=== PATIENT | male | born 1980 | race Caucasian/White ===

== ENCOUNTER 2022-04-15 08:27 | Inpatient (IN) | payer BC, SELFPAY ==
[2022-04-15] VITALS (24 sets, daily range): BP systolic 76–138; BP diastolic 52–81; PULSE 76–89; RESP 18–22; TEMP 36.7–37.3; O2SAT 89–98; BMI 35.4; BMI 36.0
--- NOTE | 2022-04-15 09:16 | CRLHL7_ITS ---
For Patients: As a result of the Cures Act, medical imaging exams and procedure reports are released immediately into your electronic medical record. You may view this report before your referring provider. If you have questions, please contact your health care provider. INDICATION: Hypoxia. COMPARISON: 11/03/2021. FINDINGS: A portable AP view of the chest was obtained. The cardiac silhouette and pulmonary vasculature are within limits. The lungs are clear bilaterally. IMPRESSION: No evidence of acute pulmonary disease. Dictated by Gregorio Dash MD @ 04/15/2022 10:17:34 AM (Electronically Signed)
--- NOTE | 2022-04-15 09:17 | ED_ITS ---
HPI - General Adult General Chief complaint: Cough Stated complaint: Really sick post heart attack last week Time Seen by Provider: 04/15/22 09:10 History of Present Illness HPI narrative: This 41-year-old male was hospitalized about a week ago because of a myocardial infarction. He states that he had a heart attack about a year ago also. He had stents placed and was discharged home and states that he is not felt well since then. He reports cough and nasal congestion and has some chest pain only when coughing. He does not report any nausea, vomiting, lightheadedness, shortness of breath, or diaphoresis. Related Data Home Medications Medication Instructions Recorded Confirmed aspirin 81 mg capsule 81 mg PO DAILY 04/15/22 04/15/22 atorvastatin 80 mg tablet 40 mg PO DAILY 04/15/22 04/15/22 calcium carbonate 500 mg calcium 500 mg PO QID 04/15/22 04/15/22 (1,250 mg) chewable tablet (Calcium 500) carvedilol 25 mg tablet 25 mg PO BID 04/15/22 04/15/22 cyclobenzaprine 10 mg tablet 10 mg PO HS 04/15/22 04/15/22 dapagliflozin 10 mg tablet 10 mg PO DAILY 04/15/22 04/15/22 epinephrine 0.3 mg/0.3 mL 0.3 ml IM Q5-15M PRN 04/15/22 04/15/22 injection, auto-injector eplerenone 25 mg tablet 25 mg PO DAILY 04/15/22 04/15/22 famotidine 20 mg tablet (Acid 20 mg PO DAILY 04/15/22 04/15/22 Controller) furosemide 20 mg tablet 20 mg PO DAILY 04/15/22 04/15/22 insulin glargine 100 unit/mL (3 84 unit subcut BID 04/15/22 04/15/22 mL) subcutaneous pen insulin lispro 100 unit/mL 20 unit subcut TID 04/15/22 04/15/22 subcutaneous solution (Humalog U-100 Insulin) isosorbide mononitrate 30 mg 30 mg PO DAILY 04/15/22 04/15/22 tablet,extended release 24 hr losartan 100 mg tablet (Cozaar) 100 mg PO DAILY 04/15/22 04/15/22 nitroglycerin 0.4 mg sublingual 0.8 mg sublingual Q5M 04/15/22 04/15/22 tablet ondansetron HCl 8 mg tablet 8 mg PO Q8H PRN 04/15/22 04/15/22 prasugrel 10 mg tablet (Effient) 10 mg PO DAILY 04/15/22 04/15/22 sertraline 50 mg tablet 50 mg PO DAILY 04/15/22 04/15/22 Allergies Allergy/AdvReac Type Severity Reaction Status Date / Time cephalexin [From Keflex] Allergy Verified 04/15/22 08:59 Iodinated Contrast Media Allergy Verified 04/15/22 08:59 morphine Allergy Verified 04/15/22 08:59 Penicillins Allergy Verified 04/15/22 08:59 Sulfa (Sulfonamide Allergy Verified 04/15/22 08:59 Antibiotics) Review of Systems Status of ROS: Reports: 10 or more systems reviewed and unremarkable except as noted in History and below Narrative: Constitutional: No fevers, no weight gain or loss. Generalized malaise. Eyes: No discharge. No vision changes. HENT: Nasal congestion, no sore throat, no ear pain. Cardiovascular: No chest pain, no palpitations. Respiratory: No shortness of breath, no wheezes. He reports a cough. Gastrointestinal: No abdominal pain, no vomiting, no diarrhea. Genitourinary: No dysuria, no hematuria. Musculoskeletal: Normal range of motion. Skin: No rashes, no pruritis. Neurological: No dizziness, weakness, sensory change, speech change. Endo/Heme/Allergies: No bruising or bleeding. No polydipsia. Pysch: no suicidality, no anxiety, no insomnia. All other systems reviewed and are negative. [facility] Social History Smoking Status: Smoker, status unknown Exam Narrative: Exam Narrative: Constitutional: Well-developed, well-nourished, no acute distress. HEENT: Normocephalic, atraumatic. Neck: Normal range of motion. Nontender. Supple. Heart: Regular. No murmurs. Normal rate. Intact distal pulses. Lungs: Clear to auscultation. No chest discomfort. No wheezes, rhonchi, or rales. Abdomen: Normal bowel sounds. Nontender. No rebound tenderness. Genitalia: Deferred. Back: No midline tenderness. Normal range of motion. Extremities: Normal range of motion. No injury. Skin: Intact. No rash. Warm. No erythema or pallor. Neurologic: No altered sensation. No weakness. Alert and oriented. Psychiatric: No suicidality. No anxiety or depression. No insomnia. Nursing notes and vitals signs are reviewed. Const: Vital Signs, click to edit/add: Vital Signs - 24 hr 04/15/22 08:54 04/15/22 10:15 04/15/22 10:15 Temperature 99.2 F Pulse Rate Pulse Rate [Right Pulse Oximeter] 89 Respiratory Rate 22 Blood Pressure Blood Pressure [Le ft Upper Arm] 91/61 Pulse Oximetry 95 91 92 Oxygen Delivery Me thod Room Air Nasal Cannula Oxygen Flow Rate 2 04/15/22 09:09 04/15/22 09:10 04/15/22 09:30 Temperature Pulse Rate 83 84 83 Pulse Rate [Right Pulse Oximeter] Respiratory Rate Blood Pressure 100/69 Blood Pressure [Le ft Upper Arm] Pulse Oximetry 90 91 94 Oxygen Delivery Me thod Oxygen Flow Rate 04/15/22 09:32 04/15/22 09:40 04/15/22 09:45 Temperature Pulse Rate 85 80 Pulse Rate [Right Pulse Oximeter] Respiratory Rate Blood Pressure 97/69 76/52 L 91/66 Blood Pressure [Le ft Upper Arm] Pulse Oximetry 92 89 Oxygen Delivery Me thod Oxygen Flow Rate 04/15/22 10:00 04/15/22 10:02 Temperature Pulse Rate 79 76 Pulse Rate [Right Pulse Oximeter] Respiratory Rate Blood Pressure 89/58 L Blood Pressure [Le ft Upper Arm] Pulse Oximetry 90 91 Oxygen Delivery Me thod Oxygen Flow Rate Course Vital Signs Vital signs: Initial Vital Signs Temperature 99.2 F 04/15/22 08:54 Temperature Source Temporal Artery Scan 04/15/22 08:54 Pulse Rate 89 04/15/22 08:54 Respiratory Rate 22 04/15/22 08:54 Blood Pressure 91/61 04/15/22 08:54 Blood Pressure Mean 71 04/15/22 08:54 Blood Pressure Position Sitting 04/15/22 08:54 Pulse Oximetry 95 04/15/22 08:54 Oxygen Delivery Method 04/15/22 08:54 Vital Signs Temperature 99.2 F 04/15/22 08:54 Pulse Rate 89 04/15/22 08:54 Respiratory Rate 22 04/15/22 08:54 Blood Pressure 91/61 04/15/22 08:54 Pulse Oximetry 95 04/15/22 08:54 Oxygen Delivery Method 04/15/22 08:54 Temperature 99.2 F 04/15/22 08:54 Pulse Rate 76 04/15/22 10:02 Respiratory Rate 22 04/15/22 08:54 Blood Pressure 89/58 L 04/15/22 10:02 Pulse Oximetry 92 04/15/22 10:15 Oxygen Delivery Method 04/15/22 10:15 Oxygen Flow Rate 2 04/15/22 10:15 Medical Decision Making MDM Narrative Medical decision making narrative: This patient comes in reporting generalized malaise with a cough that is painful when coughing. He has nasal congestion. He arrives with blood pressure at around 90/60. At 1 point he sat up in the bed in his blood pressure decreased to the mid 70s. He did receive then a L of normal saline and his blood pressures have improved to around 90 over 60 again. He states that he did take his blood pressure medicines this morning. His troponin returns elevated at 0.19 but this is trended down words from his recent hospitalization where was significantly higher. His nasal pharyngeal swab test returns positive for influenza A. I did speak with the hospitalist developmental education instructor who agrees to bring him in here but would like conversation with the electrician yard. I did speak with Dr. Reynoso at [facility] who reviewed his recent studies and states that his coronary arteries are patent. He is okay to be admitted here. Dr. Morejon is the accepting physician. Lab Data Labs: Lab Results 04/15/22 04/15/22 04/15/22 Range/Units 09:00 09:16 09:16 WBC 4.74 (4.50-11.00) K/uL RBC 4.74 (4.30-5.90) m/uL Hgb 13.7 (13.5-17.5) gm/dL Hct 42.7 (37.0-53.0) % MCV 90 (80-100) fL MCH 29 (26-34) pg MCHC 32 (32-36) gm/dL RDW Coeff of Parker 13.3 (11.5-15.5) % Plt Count 185 (140-440) K/uL Neut % (Auto) 66.2 (42.0-72.0) % Lymph % (Auto) 14.1 L (20-44) % Granite % (Auto) 16.2 H (0.0-11.0) % Eos % (Auto) 2.5 (0.0-7.0) % Baso % (Auto) 0.8 (0.0-3.0) % Neut # (Auto) 3.13 (1.7-7.0) K/uL Lymph # (Auto) 0.70 L (0.90-2.90) K/uL Granite # (Auto) 0.80 (0.00-0.90) K/UL Eos # (Auto) 0.12 (0.00-0.50) K/uL Baso # (Auto) 0.04 (0.00-0.30) K/uL Abs Immat Gran (auto) 0.01 (0.00-0.30) K/uL Imm/Tot Granulo (auto) 0.2 % Sodium 139 (135-149) mmol/L Potassium 3.8 (3.6-5.1) mmol/L Chloride 103 (96-114) mmol/L Carbon Dioxide 28 (20-32) mmol/L BUN 24 (5-24) mg/dL Creatinine 1.2 (0.5-1.5) mg/dL Estimated Creat Clear 81.01 Estimated GFR 78 ml/min Glucose 274 H (60-115) mg/dL Calcium 8.4 (8.4-10.6) mg/dL Troponin I 0.19 H* (0.01-0.04) ng/mL SARS-CoV-2 (PCR) Negative SARS-CoV-2 (Negative) Influenza Type A (PCR) POSITIVE PCR FLU A A (Negative) Influenza Type B (PCR) Negative PCR FLU B (Negative) RSV (PCR) Negative PCR RSV (Negative) ECG Data Attestation: I personally reviewed and interpreted this ECG as follows: Interpretation: Normal sinus rhythm. Rate is 83 beats per minute. Inverted T-waves in to lateral leads. No ST changes. Discharge Plan Discharge Clinical Impression: Influenza A Patient Disposition: Home, Self-Care Condition: Unchanged Prescriptions: No Action carvedilol 25 mg tablet 25 mg PO BID Rx Instructions: must administer with a meal/food aspirin 81 mg capsule 81 mg PO DAILY atorvastatin 80 mg tablet 40 mg PO DAILY cyclobenzaprine 10 mg tablet 10 mg PO HS dapagliflozin 10 mg tablet 10 mg PO DAILY epinephrine 0.3 mg/0.3 mL auto-injector 0.3 ml IM Q5-15M PRN Rx Instructions: do not exceed 3 doses per episode eplerenone 25 mg tablet 25 mg PO DAILY famotidine [Acid Controller] 20 mg tablet 20 mg PO DAILY furosemide 20 mg tablet 20 mg PO DAILY insulin glargine 100 unit/mL (3 mL) insulin pen 84 unit subcut BID insulin lispro [Humalog U-100 Insulin] 100 unit/mL solution 20 unit subcut TID Rx Instructions: with meal isosorbide mononitrate 30 mg tablet extended release 24 hr 30 mg PO DAILY losartan [Cozaar] 100 mg tablet 100 mg PO DAILY nitroglycerin 0.4 mg tablet, sublingual 0.8 mg sublingual Q5M Rx Instructions: do not exceed 3 doses per episode prasugrel [Effient] 10 mg tablet 10 mg PO DAILY sertraline 50 mg tablet 50 mg PO DAILY calcium carbonate [Calcium 500] 500 mg calcium (1,250 mg) tablet,chewable 500 mg PO QID ondansetron HCl 8 mg tablet 8 mg PO Q8H PRN Follow Up/Referrals: Provider,Not a Local [Primary Care Provider] - Stand Alone Forms: [facility] Info Instructions
--- NOTE | 2022-04-15 09:40 | ED.NURSE ---
notified of BP 76/52. IVF started, per MD order.
[2022-04-15 09:41] LABS: Basophils Absolute Auto 0.04 K/uL (0.00-0.30); Basophils Percent Auto 0.8 % (0.0-3.0); Eosinophils Absolute Auto 0.12 K/uL (0.00-0.50); Eosinophils Percent Auto 2.5 % (0.0-7.0); Hematocrit 42.7 % (37.0-53.0); Hemoglobin* 13.7 gm/dL (13.5-17.5); Immature Granulocytes Abs Auto 0.01 K/uL (0.00-0.30); Immature Granulocytes Pct Auto 0.2 %; Lymphocytes Percent Auto 14.1 % (20-44); Mean Corpuscular HGB Conc 32 gm/dL (32-36); Mean Corpuscular Hemoglobin 29 pg (26-34); Mean Corpuscular Volume 90 fL (80-100); Monocytes Percent Auto 16.2 % (0.0-11.0); Neutrophils Absolute Auto 3.13 K/uL (1.7-7.0); Neutrophils Percent Auto 66.2 % (42.0-72.0); Platelet Count* 185 K/uL (140-440); RDW Coefficient of Variation % 13.3 % (11.5-15.5); Red Blood Count 4.74 m/uL (4.30-5.90); White Blood Count* 4.74 K/uL (4.50-11.00)
[2022-04-15 09:44] LABS: Slide Review Reflex No
[2022-04-15] MEDS: 0.9 % SODIUM CHLORIDE 1000 ml 1,000 ML IV (09:48)
[2022-04-15 09:52] LABS: Chloride* 103 mmol/L (96-114); Sodium* 139 mmol/L (135-149)
[2022-04-15 09:53] LABS: PCR FLU A POSITIVE PCR FLU A (Negative); PCR FLU B Negative PCR FLU B (Negative); PCR RSV Negative PCR RSV (Negative)
[2022-04-15 09:53] LABS: Potassium* 3.8 mmol/L (3.6-5.1)
[2022-04-15 09:54] LABS: SARS PCR* Negative SARS-CoV-2 (Negative)
[2022-04-15 09:55] LABS: Creatinine* 1.2 mg/dL (0.5-1.5); Est. Creatinine Clearance* 81.01; Estimated Glomerular Filt Rate 78 ml/min
[2022-04-15 09:56] LABS: Blood Urea Nitrogen* 24 mg/dL (5-24); Calcium* 8.4 mg/dL (8.4-10.6); Carbon Dioxide* 28 mmol/L (20-32); Glucose* 274 mg/dL (60-115)
--- NOTE | 2022-04-15 10:12 | ED.NURSE ---
Pt Sats noted to be 87-89% on RA. MD notified. O2 applied at 2-4LPM to maintain Sats >90%.
[2022-04-15 10:19] LABS: Troponin I* 0.19 ng/mL (0.01-0.04)
--- NOTE | 2022-04-15 10:20 | ED.NURSE ---
Critical received from lab: Trop 0.19. informed and to bedside.
--- NOTE | 2022-04-15 11:19 | ED.NURSE ---
Pt to Rm 260 via w/c. IVF complete. IV SL at this time. Pt on O2 2LPM via NC, tolerates well. VSS at time of leaving ED.
--- NOTE | 2022-04-15 12:02 | P.IMHP_ITS ---
Hospitalist- H&P: HPI History of Present Illness Date Seen: 04/15/22 Chief complaint: Really sick post heart attack Narrative: Marquis Rosas is a 41 year old male, has felt poorly since Thanksgiving (2 days ago). Has noted headache, nasal congestion, cough, nausea/vomiting/diarrhea, fatigue. Has used OTC medications with minimal relief. Today, felt much worse (also had lightheadedness), so presented to ED. ER Course and Findings: - elevated troponin of 0.19. Patient was recently hospitalized at [facility] and had elevated troponins (peak at 0.52, 0.48 at discharge on 04/01/2022) - no acute EKG changes - Dr. Dahl in the ED discussed case with Cardiology at [facility] given patient's recent hospitalization and known coronary artery disease. Dr. Reynoso of Cardiology felt that patient was appropriate to be managed at the [facility] given recent hospitalization with reassuring findings CT coronary angiogram - Positive influenza A - blood pressure 90s systolic, given IV fluid bolus and blood pressure improved Recently hospitalized at [facility] (transfer from [address] in [place]) for chest pain. Per DC note: Mr. Marquis Rosas is a 41 y.o. male with a history of coronary artery disease s/p percutaneous coronary intervention, DMII, hypertension/HLPD, obstructive sleep apnea, and depression/anxiety, who presented to [place] emergency department with chest pain. Patient states pain developed around 2:30pm, stating it's similar to pain prior to previous stent. Pain is pressure- like substernal pain with radiation to shoulders and back. He denies associated dyspnea or diaphoresis. ? In the emergency department, patient was afebrile and hemodynamically stable. Physical exam was unremarkable. EKG found non-specific T wave changes in lateral leads. Initial troponin level was mildly elevated at 0.528. He was given an ASA and started on heparin infusion. Ultimately started on nitroglycerin infusion for persistent pain. Transferred to [facility] for management. ? Troponins were somewhat variable but did trend down. Cardiology consult recommended CT coronary angiogram on 04/02 which showed a patent stent in the mid LAD with mild in-stent restenosis and mild non-obstructive atherosclerosis in the proximal and mid RCA but no new obstructive epicardial coronary lesions to account for his symptoms. TTE with LVEF 38%, see report for details. Cardiology feels that his troponin elevation was likely related to demand ischemia related to his hypertension and increased his coreg. He was given new prescriptions for this as well as lasix and losartan. He'd had some nausea but this improved, he felt it may have been due to anxiety and not eating. His lantus was titrated down (including due to being NPO for his CT) but was resumed at usual dose at discharge, he was advised to monitor his oral intake (since his lantus doses were lower) to avoid significant hyperglycemia until he gets back on his usual diabetes regimen. He otherwise felt well and so was discharged to home on 04/02/22 with close outpatient follow up with his primary MD in 3-5 days and I in [place] in 1 month. He was advised to eat a low salt diet and monitor his weight. See below and discharge orders for details. Patient has known history of coronary artery disease, stented LAD 2020. He also has a known history of CATRACHO that is currently untreated (intolerant of CPAP) and IDDM2, with last A1C 6.9 on 04/01/22. Other medical and surgical history updated below. 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 Lives with Lisa (would be medical decision maker if needed) and 6yo daughter. Never smoker. No ETOH use. History of meth use, clean for 6 years. Currently uses [facility]. Requests Full Code status. PCP is Dayday Monroy PA-C at the [facility] in [place]. Review of Systems Status of ROS: Reports: 10 or more systems reviewed and unremarkable except as noted in History and below Narrative: + Rib pain from coughing. No chest pain, had an episode of acute pain in epigastrium that woke him up last night (unsure if cardiac or GERD) - improved with Nitro x2. [facility] Medical History (Updated 04/15/22 @ 14:06 by Ana Morejon MD) Coronary artery disease Depression Essential hypertension IDDM (insulin dependent diabetes mellitus) CATRACHO (obstructive sleep apnea) Surgical History (Updated 04/15/22 @ 12:10 by Ana Morejon MD) History of back surgery History of cholecystectomy S/P surgery on nasal septum Social History Smoking Status: Smoker, status unknown Meds Home Medications and Allergies Home Medications Medication Instructions Recorded Confirmed Type albuterol sulfate 90 mcg/actuation 2 inh inhalation Q4H PRN 04/15/22 04/15/22 History aerosol inhaler aspirin 81 mg chewable tablet 81 mg PO DAILY 04/15/22 04/15/22 History atorvastatin 80 mg tablet 40 mg PO DAILY 04/15/22 04/15/22 History calcium carbonate 500 mg calcium 500 mg PO QID 04/15/22 04/15/22 History (1,250 mg) chewable tablet (Calcium 500) carvedilol 25 mg tablet 25 mg PO BID 04/15/22 04/15/22 History cyclobenzaprine 10 mg tablet 10 mg PO HS PRN 04/15/22 04/15/22 History dapagliflozin 10 mg tablet 10 mg PO DAILY 04/15/22 04/15/22 History epinephrine 0.3 mg/0.3 mL 0.3 ml IM Q5-15M PRN 04/15/22 04/15/22 History injection, auto-injector eplerenone 25 mg tablet 25 mg PO DAILY 04/15/22 04/15/22 History famotidine 20 mg tablet (Acid 20 mg PO BID 04/15/22 04/15/22 History Controller) furosemide 20 mg tablet 20 mg PO DAILY 04/15/22 04/15/22 History insulin glargine 100 unit/mL (3 84 unit subcut BID 04/15/22 04/15/22 History mL) subcutaneous pen insulin lispro 100 unit/mL 20 unit subcut TID 04/15/22 04/15/22 History subcutaneous solution (Humalog U-100 Insulin) isosorbide mononitrate 30 mg 30 mg PO DAILY 04/15/22 04/15/22 History tablet,extended release 24 hr losartan 100 mg tablet (Cozaar) 100 mg PO DAILY 04/15/22 04/15/22 History nitroglycerin 0.4 mg sublingual 0.8 mg sublingual Q5M 04/15/22 04/15/22 History tablet ondansetron HCl 8 mg tablet 8 mg PO Q8H PRN 04/15/22 04/15/22 History prasugrel 10 mg tablet (Effient) 10 mg PO DAILY 04/15/22 04/15/22 History sertraline 50 mg tablet 50 mg PO DAILY 04/15/22 04/15/22 History Allergies Allergy/AdvReac Type Severity Reaction Status Date / Time cephalexin [From Keflex] Allergy Verified 04/15/22 08:59 Iodinated Contrast Media Allergy Verified 04/15/22 08:59 morphine Allergy Verified 04/15/22 08:59 Penicillins Allergy Verified 04/15/22 08:59 Sulfa (Sulfonamide Allergy Verified 04/15/22 08:59 Antibiotics) Exam Narrative: Exam Narrative: GEN: Alert and oriented, sitting comfortably in bed and eating lunch, answering questions appropriately HEENT: Normal external ears, EOMIs bilaterally, no scleral icterus CV: RRR, No concerning murmurs, rubs, or gallops R: LCTA bilaterally without concerning wheezing, rales, or rhonchi Ext: wwp, no concerning edema Skin: No concerning skin lesions or rashes on exposed skin Neuro: No focal deficits Psych: Appropriate Const: Vital Signs, click to edit/add: Vital Signs - 24 hr 04/15/22 08:54 04/15/22 10:15 04/15/22 10:15 Temperature 99.2 F Pulse Rate Pulse Rate [Right Pulse Oximeter] 89 Respiratory Rate 22 Blood Pressure Blood Pressure [Le ft Upper Arm] 91/61 Pulse Oximetry 95 91 92 Oxygen Delivery Me thod Room Air Nasal Cannula Oxygen Flow Rate 2 04/15/22 09:09 04/15/22 09:10 04/15/22 09:30 Temperature Pulse Rate 83 84 83 Pulse Rate [Right Pulse Oximeter] Respiratory Rate Blood Pressure 100/69 Blood Pressure [Le ft Upper Arm] Pulse Oximetry 90 91 94 Oxygen Delivery Me thod Oxygen Flow Rate 04/15/22 09:32 04/15/22 09:40 04/15/22 09:45 Temperature Pulse Rate 85 80 Pulse Rate [Right Pulse Oximeter] Respiratory Rate Blood Pressure 97/69 76/52 L 91/66 Blood Pressure [Le ft Upper Arm] Pulse Oximetry 92 89 Oxygen Delivery Me thod Oxygen Flow Rate 04/15/22 10:00 04/15/22 10:02 04/15/22 10:03 Temperature Pulse Rate 79 76 77 Pulse Rate [Right Pulse Oximeter] Respiratory Rate Blood Pressure 89/58 L Blood Pressure [Le ft Upper Arm] Pulse Oximetry 90 91 91 Oxygen Delivery Me thod Oxygen Flow Rate 04/15/22 10:15 04/15/22 10:30 04/15/22 10:31 Temperature Pulse Rate 79 79 Pulse Rate [Right Pulse Oximeter] Respiratory Rate Blood Pressure 82/61 L 111/69 Blood Pressure [Le ft Upper Arm] Pulse Oximetry 92 96 Oxygen Delivery Me thod Oxygen Flow Rate 04/15/22 11:00 04/15/22 11:02 Temperature Pulse Rate 77 76 Pulse Rate [Right Pulse Oximeter] Respiratory Rate Blood Pressure 111/67 Blood Pressure [Le ft Upper Arm] Pulse Oximetry 95 95 Oxygen Delivery Me thod Oxygen Flow Rate Hospitalist - H&P: Result Labs Labs: Short CBC 04/15/22 Range/Units 09:16 WBC 4.74 (4.50-11.00) K/uL Hgb 13.7 (13.5-17.5) gm/dL Hct 42.7 (37.0-53.0) % Plt Count 185 (140-440) K/uL BMP 04/15/22 09:16 Sodium 139 Potassium 3.8 Chloride 103 Carbon Dioxide 28 BUN 24 Creatinine 1.2 Glucose 274 H Calcium 8.4 Cardiac Enzymes 04/15/22 Range/Units 09:16 Troponin I 0.19 H* (0.01-0.04) ng/mL Assessment and Plan Assessment and plan (1) Influenza A: Problem comment: - with associated weakness, hypotension, acute hypoxic respiratory failure requiring supplemental oxygen - treat with Tamiflu given comorbidities and need for hospitalization Status: Acute (2) Acute respiratory failure with hypoxia: Problem comment: - see #1 Status: Acute (3) Coronary artery disease: Problem comment: - LAD stent 2020 - hospitalized for chest pain at [facility] [place] in early March, reassuring coronary CTA - follow troponins given elevation upon admission - continue home medications Status: Acute (4) IDDM (insulin dependent diabetes mellitus): Problem comment: - most recent outpatient A1c 6.9 - continue home insulin, diabetic diet, Accu-Cheks and sliding scale Status: Acute (5) Essential hypertension: Problem comment: - hypotensive on admission, continue home meds with holding parameters Status: Acute (6) CATRACHO (obstructive sleep apnea): Problem comment: - intolerant of CPAP, request nocturnal oximetry Status: Acute Plan - per above - home aspirin, SCDs, Lovenox for prophylaxis
[2022-04-15 15:08] LABS: Troponin I* 0.18 ng/mL (0.01-0.04)
[2022-04-15] MEDS: ACETAMINOPHEN 650 MG TABLET ER 1300 MG PO (15:34)
--- NOTE | 2022-04-15 15:36 | PC.NURSE ---
Pt admitted from ED for positive influenza A. Admission assessment and evaluation completed by primary RN. Lisa present and supportive at bedside. Pt had a low BP on admission which improved after approximately 10 minutes and position change. Pt is diabetic and has a hx of CAD with a stent placement in October of 2020( low sodium diet at home). Pt opted out of therapeutic dietary recommendations. Pt very congested and gasping for air when he arrived on the floor, he was able to expectorate sputum and blow his nose twice with relief, new face mask provided. Dr. Morejon aware of low BP readings when she arrived to evaluate patient. Pt fell into a deep sleep after lunch. New order for continuous pulse oximetry and SCDS initiated. BG check at 1400 was 210. Pt received 20 units of Novolog insulin SQ. Tele indicates NSR. Pt is no longer struggling for air, calm and cooperative with cares. Continue POC. Pt also is aware he needs to leave the collection hat in the toilet for c-diff sample collection. Report to Tereza Brooks RN for evening shift. Droplet/contact precautions d/to influenza diagnosis and need for c-diff results.
[2022-04-15] MEDS: BENZOCAINE/MENTHOL 1 EACH LOZENGE MUCOUS MEM ×2 (15:53→21:35)
[2022-04-15] MEDS: carvediloL 25 MG TABLET PO (21:20)
[2022-04-15] MEDS: OSELTAMIVIR PHOSPHATE 75 MG CAPSULE PO (21:20)
[2022-04-15] MEDS: ENOXAPARIN 40 MG/0.4 ML INJ SUBCUT (21:20)
[2022-04-15] MEDS: guaiFENesin 100 MG/ML CUP PO (21:35)
--- NOTE | 2022-04-15 22:24 | PC.NURSE ---
Shift [id number]- Patient complains of headache, with some relief from tylenol- see eMAR. Mcnamara he states he believes it is partially from being congested. Occasional cough. He is up ad cristobal. Remains on 2L O2. No BM this shift.
[2022-04-16] VITALS (10 sets, daily range): BP systolic 101–143; BP diastolic 60–94; PULSE 69–80; RESP 16–20; TEMP 36.6–36.9; O2SAT 94–99
[2022-04-16 02:31] LABS: C.Difficile Negative (Negative); CDIFFEPI 027 PRESUMPTIVE NEGATIVE (Negative)
[2022-04-16 06:55] LABS: Eosinophils Percent Auto 6.1 % (0.0-7.0); Hematocrit 43.2 % (37.0-53.0); Hemoglobin* 13.7 gm/dL (13.5-17.5); Lymphocytes Percent Auto 29.4 % (20-44); Mean Corpuscular HGB Conc 32 gm/dL (32-36); Mean Corpuscular Hemoglobin 29 pg (26-34); Mean Corpuscular Volume 91 fL (80-100); Monocytes Percent Auto 20.1 % (0.0-11.0); Neutrophils Percent Auto 43.4 % (42.0-72.0); Platelet Count* 158 K/uL (140-440); RDW Coefficient of Variation % 13.4 % (11.5-15.5); Red Blood Count 4.75 m/uL (4.30-5.90); White Blood Count* 3.94 K/uL (4.50-11.00)
[2022-04-16 06:59] LABS: Slide Review Reflex No
--- NOTE | 2022-04-16 07:09 | PC.NURSE ---
Shift note: frequent cough, afebrile, independent in the room
[2022-04-16 07:20] LABS: Albumin* 3.8 g/dL (3.3-5.0); Chloride* 108 mmol/L (96-114); Potassium* 3.9 mmol/L (3.6-5.1); Sodium* 142 mmol/L (135-149)
[2022-04-16 07:22] LABS: Creatinine* 1.1 mg/dL (0.5-1.5); Est. Creatinine Clearance* 88.38; Estimated Glomerular Filt Rate 86 ml/min
[2022-04-16 07:23] LABS: Alanine Aminotransferase* 90 U/L (4-50); Alkaline Phosphatase* 188 U/L (40-150); Aspartate Amino Transferase* 57 U/L (12-35); Bilirubin Total* 0.4 mg/dL (0.1-1.5); Blood Urea Nitrogen* 23 mg/dL (5-24); Carbon Dioxide* 29 mmol/L (20-32); Glucose* 120 mg/dL (60-115); Total Protein* 7.3 g/dL (6.0-8.3)
[2022-04-16 07:24] LABS: Calcium* 8.6 mg/dL (8.4-10.6)
[2022-04-16 07:34] LABS: Troponin I* 0.19 ng/mL (0.01-0.04)
[2022-04-16] MEDS: ACETAMINOPHEN 650 MG TABLET ER 1300 MG PO ×2 (07:55→15:58)
[2022-04-16] MEDS: guaiFENesin 100 MG/ML CUP PO (07:55)
--- NOTE | 2022-04-16 09:15 | PM.IMPN1 ---
Progress Note: A&P Assessment and plan (1) Influenza A: Problem details: - with associated weakness, hypotension, acute hypoxic respiratory failure requiring supplemental oxygen - treat with Tamiflu given comorbidities and need for hospitalization - symptomatic cares with guaifenesin, Flonase, nebs - appreciate input from respiratory therapy Status: Acute (2) Acute respiratory failure with hypoxia: Problem details: - see #1 Status: Acute (3) Coronary artery disease: Problem details: - LAD stent 2020 - hospitalized for chest pain at [facility] in early March, reassuring coronary CTA, stable TTE - follow troponins given elevation upon admission - continue home medications - 24 hours of telemetry reassuring, will discontinue at this time Status: Acute (4) IDDM (insulin dependent diabetes mellitus): Problem details: - most recent outpatient A1c 6.9 - continue home insulin, diabetic diet, Accu-Cheks and sliding scale Status: Acute (5) Essential hypertension: Problem details: - hypotensive on admission, continue home meds with holding parameters Status: Acute (6) CATRACHO (obstructive sleep apnea): Problem details: - intolerant of CPAP, request nocturnal oximetry Status: Acute Plan - per above - continue to wean supplemental oxygen, possibly home as early as tomorrow Subjective Date Seen: 04/16/22 Interval history: No acute events overnight. Marquis continues to feel poorly, is intermittently requiring supplemental oxygen. Notes head congestion and headache. Troponin stable. No CP. Blood sugars stable, tolerating po intake. Exam Narrative: Exam Narrative: GEN: Alert and oriented, sitting comfortably in bed and eating breakfast HEENT: Normal external ears, EOMIs bilaterally CV: RRR, No concerning murmurs, rubs, or gallops R: LCTA bilaterally without concerning wheezing, rales, or rhonchi Ext: wwp, no concerning edema Skin: No concerning skin lesions or rashes on exposed skin Neuro: Nonfocal Psych: Appropriate Const: Vital Signs, click to edit/add: Vital Signs - 24 hr 04/15/22 10:15 04/15/22 10:15 04/15/22 09:30 Temperature Pulse Rate 83 Pulse Rate [Right Radial] Respiratory Rate Blood Pressure Blood Pressure [Ri ght Arm] Pulse Oximetry 91 92 94 Oxygen Delivery Me thod Nasal Cannula Oxygen Flow Rate 2 04/15/22 09:32 04/15/22 09:40 04/15/22 09:45 Temperature Pulse Rate 85 80 Pulse Rate [Right Radial] Respiratory Rate Blood Pressure 97/69 76/52 L 91/66 Blood Pressure [Ri t Arm] Pulse Oximetry 92 89 Oxygen Delivery Me thod Oxygen Flow Rate 04/15/22 10:00 04/15/22 10:02 04/15/22 10:03 Temperature Pulse Rate 79 76 77 Pulse Rate [Right Radial] Respiratory Rate Blood Pressure 89/58 L Blood Pressure [Ri ght Arm] Pulse Oximetry 90 91 91 Oxygen Delivery Me thod Oxygen Flow Rate 04/15/22 10:15 04/15/22 10:30 04/15/22 10:31 Temperature Pulse Rate 79 79 Pulse Rate [Right Radial] Respiratory Rate Blood Pressure 82/61 L 111/69 Blood Pressure [Ri ght Arm] Pulse Oximetry 92 96 Oxygen Delivery Me thod Oxygen Flow Rate 04/15/22 11:00 04/15/22 11:02 04/15/22 11:54 Temperature Pulse Rate 77 76 86 Pulse Rate [Right Radial] Respiratory Rate Blood Pressure 111/67 Blood Pressure [Ri t Arm] Pulse Oximetry 95 95 Oxygen Delivery Me thod Oxygen Flow Rate 04/15/22 13:18 04/15/22 13:17 04/15/22 11:35 Temperature 98.1 F Pulse Rate Pulse Rate [Right Radial] 84 87 Respiratory Rate 20 22 Blood Pressure Blood Pressure [Ri ght Arm] 94/66 Pulse Oximetry 98 98 98 Oxygen Delivery Me thod Nasal Cannula Nasal Cannula Oxygen Flow Rate 2 2 04/15/22 11:45 04/15/22 15:37 04/15/22 18:31 Temperature 98.4 F Pulse Rate Pulse Rate [Right Radial] 88 Respiratory Rate 22 18 Blood Pressure Blood Pressure [Ri ght Arm] 102/68 Pulse Oximetry 97 97 Oxygen Delivery Me thod Nasal Cannula Nasal Cannula Oxygen Flow Rate 2 2 04/15/22 15:02 04/15/22 23:00 04/15/22 23:00 Temperature 98.4 F Pulse Rate 78 Pulse Rate [Right Radial] 80 Respiratory Rate 18 Blood Pressure Blood Pressure [Ri ght Arm] 138/81 Pulse Oximetry 98 Oxygen Delivery Me thod Room Air Oxygen Flow Rate 04/16/22 03:00 04/16/22 07:00 Temperature 98 F Pulse Rate 73 Pulse Rate [Right Radial] 76 Respiratory Rate 18 Blood Pressure Blood Pressure [Ri t Arm] Pulse Oximetry 96 Oxygen Delivery Me thod Room Air Oxygen Flow Rate 2 Labs Labs: Laboratory Results - last 24 hr 04/15/22 04/15/22 04/15/22 01:41 09:00 09:16 WBC 4.74 RBC 4.74 Hgb 13.7 Hct 42.7 MCV 90 MCH 29 MCHC 32 RDW Coeff of Parker 13.3 Plt Count 185 Neut % (Auto) 66.2 Lymph % (Auto) 14.1 L [place] % (Auto) 16.2 H Eos % (Auto) 2.5 Baso % (Auto) 0.8 Neut # (Auto) 3.13 Lymph # (Auto) 0.70 L [place] # (Auto) 0.80 Eos # (Auto) 0.12 Baso # (Auto) 0.04 Abs Immat Gran (auto) 0.01 Imm/Tot Granulo (auto) 0.2 Sodium Potassium Chloride Carbon Dioxide BUN Creatinine Estimated Creat Clear Estimated GFR Glucose Calcium Total Bilirubin AST ALT Alkaline Phosphatase Troponin I Total Protein Albumin Stl C.difficile Tox PCR Negative St C. diff Tox Epid 027 PRESUMPTIVE NEGATIVE SARS-CoV-2 (PCR) Negative SARS-CoV-2 Influenza Type A (PCR) POSITIVE PCR FLU A A Influenza Type B (PCR) Negative PCR FLU B RSV (PCR) Negative PCR RSV 04/15/22 04/15/22 04/16/22 09:16 14:23 06:36 WBC 3.94 L RBC 4.75 Hgb 13.7 Hct 43.2 MCV 91 MCH 29 MCHC 32 RDW Coeff of Parker 13.4 Plt Count 158 Neut % (Auto) 43.4 Lymph % (Auto) 29.4 [place] % (Auto) 20.1 H Eos % (Auto) 6.1 Baso % (Auto) 1.0 Neut # (Auto) 1.70 Lymph # (Auto) 1.20 [place] # (Auto) 0.80 Eos # (Auto) 0.20 Baso # (Auto) 0.00 Abs Immat Gran (auto) 0.00 Imm/Tot Granulo (auto) 0.0 Sodium 139 Potassium 3.8 Chloride 103 Carbon Dioxide 28 BUN 24 Creatinine 1.2 Estimated Creat Clear 81.01 Estimated GFR 78 Glucose 274 H Calcium 8.4 Total Bilirubin AST ALT Alkaline Phosphatase Troponin I 0.19 H* 0.18 H* Total Protein Albumin Stl C.difficile Tox PCR St C. diff Tox Epid 027 SARS-CoV-2 (PCR) Influenza Type A (PCR) Influenza Type B (PCR) RSV (PCR) 04/16/22 06:36 WBC RBC Hgb Hct MCV MCH MCHC RDW Coeff of Parker Plt Count Neut % (Auto) Lymph % (Auto) [place] % (Auto) Eos % (Auto) Baso % (Auto) Neut # (Auto) Lymph # (Auto) [place] # (Auto) Eos # (Auto) Baso # (Auto) Abs Immat Gran (auto) Imm/Tot Granulo (auto) Sodium 142 Potassium 3.9 Chloride 108 Carbon Dioxide 29 BUN 23 Creatinine 1.1 Estimated Creat Clear 88.38 Estimated GFR 86 Glucose 120 H Calcium 8.6 Total Bilirubin 0.4 AST 57 H ALT 90 H Alkaline Phosphatase 188 H Troponin I 0.19 H* Total Protein 7.3 Albumin 3.8 Stl C.difficile Tox PCR St C. diff Tox Epid 027 SARS-CoV-2 (PCR) Influenza Type A (PCR) Influenza Type B (PCR) RSV (PCR)
[2022-04-16] MEDS: FUROSEMIDE 20 MG TABLET PO (09:50)
[2022-04-16] MEDS: ASPIRIN 81 MG TAB.CHEW PO (09:50)
[2022-04-16] MEDS: ISOSORBIDE MONONITRATE ER 30 MG TAB PO (09:51)
[2022-04-16] MEDS: SERTRALINE 50 MG TABLET PO (09:51)
[2022-04-16] MEDS: ATORVASTATIN CALCIUM 40 MG TABLET PO (09:52)
[2022-04-16] MEDS: FAMOTIDINE 20 MG TABLET PO (09:52)
[2022-04-16] MEDS: carvediloL 25 MG TABLET PO ×2 (09:52→20:37)
[2022-04-16] MEDS: OSELTAMIVIR PHOSPHATE 75 MG CAPSULE PO ×2 (09:53→20:37)
[2022-04-16] MEDS: LOSARTAN POTASSIUM 50 MG TABLET 100 MG PO (09:53)
[2022-04-16] MEDS: ALBUTEROL SULFATE 2.5 MG/3 ML VIAL.NEB NEB (10:47)
--- NOTE | 2022-04-16 10:51 | RESP.RT ---
Patient sitting up in bed, on room air, SaO2 94%, Breathing regular/easy. PEP with Aerobika; information , instruction, demonstration. Patient made good exhalation effort with good chest shake. Patient understands how to and why, and verbally states so. SaO2 increased to 100% after a few exhalations on Aerobika. Bilateral breath sounds clear/diminished, current Chest X-Ray clear. Nebulizer treatment given with On Demand Nebulizer and Albuterol with mouth piece, Medical Air flow meter at 7 Lpm, patient used treatment well, able to take larger breath post treatment. Discussed use of MDI with extension/chamber and wait time between puffs, patient understands and verbalizes so.
[2022-04-16] MEDS: FLUTICASONE PROPIONATE NASAL 1 SPRAY NOSTRIL-B (14:30)
--- NOTE | 2022-04-16 16:24 | PC.NURSE ---
Pt on droplet precautions for influenza A. RT evaluation by Willie who administered Duoneb to pt this morning. Prn tylenol ES given for h/a 8 out of 10. Please see eMar for medications given on day shift. Two home med bottles awaiting verification by Sejal Sam with labels. Caffeine via coca cola also improved pt's c/o headache secondary to coughing. Pt c/o right sided sinus pressure, new order for Flonase initiated. Tele indicates NSR. Verbal order from Dr. Morejon to d/c telemetry during morning rounds. Report to Tereza Brooks RN for evening shift.
--- NOTE | 2022-04-16 16:29 | PC.NURSE ---
Pt's BG level before bkfst 122, before lunch 146 no SS insulin administered. Pt did received his scheduled levemir and novolog doses as ordered.
[2022-04-16] MEDS: ENOXAPARIN 40 MG/0.4 ML INJ SUBCUT (20:36)
--- NOTE | 2022-04-16 22:47 | PC.NURSE ---
Shift [id number]- Patient complains of headache, somewhat relieved by tylenol. He continues on 2L O2, with saturations low-mid 90s%. He is up independently, appetite intact. He states he feels a little better than he did yesterday.
[2022-04-17] MEDS: ACETAMINOPHEN 650 MG TABLET ER 1300 MG PO (02:06)
[2022-04-17 02:43] VITALS: BP 168/105; PULSE 70; RESP 20; TEMP 36.5; O2SAT 92
[2022-04-17 02:44] VITALS: O2SAT 92
[2022-04-17 06:50] LABS: Basophils Percent Auto 0.7 % (0.0-3.0); Eosinophils Percent Auto 11.6 % (0.0-7.0); Hematocrit 41.4 % (37.0-53.0); Hemoglobin* 13.1 gm/dL (13.5-17.5); Immature Granulocytes Pct Auto 0.2 %; Lymphocytes Percent Auto 40.6 % (20-44); Mean Corpuscular HGB Conc 32 gm/dL (32-36); Mean Corpuscular Hemoglobin 29 pg (26-34); Mean Corpuscular Volume 91 fL (80-100); Monocytes Percent Auto 16.3 % (0.0-11.0); Neutrophils Percent Auto 30.6 % (42.0-72.0); Platelet Count* 160 K/uL (140-440); RDW Coefficient of Variation % 13.4 % (11.5-15.5); Red Blood Count 4.55 m/uL (4.30-5.90); White Blood Count* 4.41 K/uL (4.50-11.00)
[2022-04-17 07:00] VITALS: BP 169/117; PULSE 72; RESP 18; TEMP 36.4; O2SAT 93
[2022-04-17 07:10] LABS: Albumin* 3.7 g/dL (3.3-5.0); Chloride* 107 mmol/L (96-114)
[2022-04-17 07:11] LABS: Potassium* 3.6 mmol/L (3.6-5.1); Sodium* 143 mmol/L (135-149)
[2022-04-17 07:13] LABS: Alkaline Phosphatase* 184 U/L (40-150); Aspartate Amino Transferase* 35 U/L (12-35); Bilirubin Total* 0.3 mg/dL (0.1-1.5); Blood Urea Nitrogen* 23 mg/dL (5-24); Carbon Dioxide* 29 mmol/L (20-32); Est. Creatinine Clearance* 97.21; Estimated Glomerular Filt Rate 97 ml/min
[2022-04-17 07:14] LABS: Alanine Aminotransferase* 65 U/L (4-50); Calcium* 8.6 mg/dL (8.4-10.6); Glucose* 145 mg/dL (60-115)
[2022-04-17 07:24] LABS: Slide Review Reflex No
[2022-04-17 07:43] LABS: Troponin I* 0.18 ng/mL (0.01-0.04)
--- NOTE | 2022-04-17 07:51 | PC.NURSE ---
[id number]: Patient cooperative with cares. Independent in room. Intermittent productive cough. Denies pain. PRN Tylenol administered for headache. O2>90% on RA.
[2022-04-17] MEDS: FLUTICASONE PROPIONATE NASAL 1 SPRAY NOSTRIL-B (08:31)
[2022-04-17] MEDS: carvediloL 25 MG TABLET PO (08:32)
[2022-04-17] MEDS: ISOSORBIDE MONONITRATE ER 30 MG TAB PO (08:32)
[2022-04-17] MEDS: SERTRALINE 50 MG TABLET PO (08:32)
[2022-04-17] MEDS: FAMOTIDINE 20 MG TABLET PO (08:32)
[2022-04-17] MEDS: FUROSEMIDE 20 MG TABLET PO (08:32)
[2022-04-17] MEDS: ATORVASTATIN CALCIUM 40 MG TABLET PO (08:32)
[2022-04-17] MEDS: OSELTAMIVIR PHOSPHATE 75 MG CAPSULE PO (08:32)
[2022-04-17] MEDS: ASPIRIN 81 MG TAB.CHEW PO (08:32)
[2022-04-17] MEDS: LOSARTAN POTASSIUM 50 MG TABLET 100 MG PO (08:33)
--- NOTE | 2022-04-17 09:56 | P.DS_ITS ---
DS: Providers Provider Date Seen: 04/17/22 Date of admission: 04/15/22 13:17 Primary care physician: Not a Local Provider Admitting Clinician: Ana Morejon MD Consults: RT Attending Physician on discharge: Ana Morejon MD Date of Discharge: 04/17/22 DS: Diagnosis Discharge Diagnosis (1) Influenza A: Status: Acute Problem details: - with associated weakness, hypotension, acute hypoxic respiratory failure requiring supplemental oxygen - weaned off supplemental oxygen hospital day 1 - treated with Tamiflu given comorbidities and need for hospitalization - symptomatic cares with guaifenesin, Flonase, nebs - appreciate input from respiratory therapy (2) Acute respiratory failure with hypoxia: Status: Acute Problem details: - see #1 (3) CATRACHO (obstructive sleep apnea): Status: Acute Problem details: - intolerant of CPAP, recommend outpatient follow-up with PCP to discuss al ternatives (4) Coronary artery disease: Status: Acute Problem details: - LAD stent 2020 - hospitalized for chest pain at [facility] in early March, reassuring coronary CTA, stable TTE - troponin remained stable throughout stay - continued home medications - telemetry reassuring throughout stay (5) IDDM (insulin dependent diabetes mellitus): Status: Acute Problem details: - most recent outpatient A1c 6.9 - continue home insulin, diabetic diet, Accu-Cheks and sliding scale (6) Essential hypertension: Status: Acute Problem details: - hypotensive on admission, continued home meds with holding parameters and blood pressure at baseline upon discharge DS: Summary Hospital Course Hospital Course: 41-year-old male with history of coronary artery disease, presented to the hospital with acute hypoxic respiratory failure in the setting of influenza a infection. Patient tapered off oxygen therapy on hospital day 1, seen by respiratory therapy and treated with a Aerobika, Tamiflu, and supportive cares. Did well and felt comfortable with discharge home on hospital day 2. Comorbidities remained stable: - Coronary artery disease with Mild troponin elevation. Hospitalized at a 2 weeks ago with elevated troponins and had reassuring coronary CTA at that time. Emergency room physician discussed case with Cardiology, who did not feel the patient warranted urgent cardiology management. Patient remained chest pain free throughout stay. - IDDM2 with recent outpatient A1c of 6.9. Kept on home dose of insulin with sliding scale and sugars remained stable. - CATRACHO with CPAP intolerance: No significant nocturnal hypoxia. Outpatient follow-up Status at Discharge Functional status at discharge: independent ambulation Overall status at discharge: patient is progressing back to baseline Time Spent with Patient Time attestation: Total time spent providing and/or coordinating discharge services: Time spent: Greater than 30 minutes Specific discharge activities: Medication reconciliation, care coordination, new prescriptions Exam Narrative: Exam Narrative: GEN: Alert and oriented, answering questions appropriately HEENT: Normal external ears, EOMIs bilaterally CV: RRR, No concerning murmurs, rubs, or gallops R: LCTA bilaterally without concerning wheezing, rales, or rhonchi, air movement adequate Ext: wwp, no concerning edema Skin: No concerning skin lesions or rashes on exposed skin Neuro: Nonfocal Psych: Appropriate Const: Vital Signs, click to edit/add: Vital Signs - 24 hr 04/16/22 10:46 04/16/22 10:46 04/16/22 11:15 Temperature Pulse Rate [Right Radial] 69 Respiratory Rate 18 18 20 Blood Pressure [Ri t Arm] Pulse Oximetry 99 99 96 Oxygen Delivery Me thod Room Air Room Air Nasal Cannula Oxygen Flow Rate 2 04/16/22 13:18 04/16/22 15:50 04/16/22 15:50 Temperature 98 F Pulse Rate [Right Radial] 76 Respiratory Rate 18 Blood Pressure [Ri ght Arm] 101/60 Pulse Oximetry 96 94 94 Oxygen Delivery Me thod Nasal Cannula Nasal Cannula Oxygen Flow Rate 2 2 04/16/22 18:34 04/16/22 18:40 04/16/22 23:00 Temperature 98.2 F 98.2 F 98.3 F Pulse Rate [Right Radial] 71 71 75 Respiratory Rate 16 16 16 Blood Pressure [Ri ght Arm] 129/77 129/77 143/94 H Pulse Oximetry 97 97 94 Oxygen Delivery Me thod Nasal Cannula Nasal Cannula Room Air Oxygen Flow Rate 2 2 04/16/22 23:00 04/17/22 02:43 04/17/22 02:44 Temperature 97.7 F Pulse Rate [Right Radial] 70 Respiratory Rate 16 20 Blood Pressure [Ri ght Arm] 168/105 H Pulse Oximetry 94 92 92 Oxygen Delivery Me thod Room Air Room Air Oxygen Flow Rate 04/17/22 07:00 Temperature 97.6 F Pulse Rate [Right Radial] 72 Respiratory Rate 18 Blood Pressure [Ri ght Arm] 169/117 H Pulse Oximetry 93 Oxygen Delivery Me thod Room Air Oxygen Flow Rate DS: Data Data Completed and Pending Labs on day of discharge: Labs from last 24 hours 04/17/22 04/17/22 05:55 05:55 WBC 4.41 L RBC 4.55 Hgb 13.1 L Hct 41.4 MCV 91 MCH 29 MCHC 32 RDW Coeff of Parker 13.4 Plt Count 160 Neut % (Auto) 30.6 L Lymph % (Auto) 40.6 [place] % (Auto) 16.3 H Eos % (Auto) 11.6 H Baso % (Auto) 0.7 Neut # (Auto) 1.30 L Lymph # (Auto) 1.80 [place] # (Auto) 0.70 Eos # (Auto) 0.50 Baso # (Auto) 0.00 Abs Immat Gran (auto) 0.00 Imm/Tot Granulo (auto) 0.2 Sodium 143 Potassium 3.6 Chloride 107 Carbon Dioxide 29 BUN 23 Creatinine 1.0 Estimated Creat Clear 97.21 Estimated GFR 97 Glucose 145 H Calcium 8.6 Total Bilirubin 0.3 AST 35 ALT 65 H Alkaline Phosphatase 184 H Troponin I 0.18 H* Total Protein 7.0 Albumin 3.7 Discharge Plan Discharge Disposition: Home, Self-Care Date of Admission: 04/15/22 13:17 Attending Provider on Discharge: Ana Morejon Primary Care Provider: Provider,Not a Local Condition: Improved Anticipated Discharge Date/Time: 04/17/22 09:53 Discharge Medications: New Levemir FlexTouch U-100 Insuln 100 unit/mL (3 mL) Insulin Pen 38 unit subcut BID Qty: 15 0RF oseltamivir 75 mg Capsule 75 mg PO BID 3 Days Qty: 6 0RF Continued carvedilol 25 mg tablet 25 mg PO BID Rx Instructions: must administer with a meal/food atorvastatin 80 mg tablet 40 mg PO DAILY cyclobenzaprine 10 mg tablet 10 mg PO HS PRN dapagliflozin 10 mg tablet 10 mg PO DAILY epinephrine 0.3 mg/0.3 mL auto-injector 0.3 ml IM Q5-15M PRN Rx Instructions: do not exceed 3 doses per episode eplerenone 25 mg tablet 25 mg PO DAILY famotidine [Acid Controller] 20 mg tablet 20 mg PO BID furosemide 20 mg tablet 20 mg PO DAILY insulin lispro [Humalog U-100 Insulin] 100 unit/mL solution 20 unit subcut TID Rx Instructions: with meal isosorbide mononitrate 30 mg tablet extended release 24 hr 30 mg PO DAILY losartan [Cozaar] 100 mg tablet 100 mg PO DAILY nitroglycerin 0.4 mg tablet, sublingual 0.8 mg sublingual Q5M Rx Instructions: do not exceed 3 doses per episode prasugrel [Effient] 10 mg tablet 10 mg PO DAILY sertraline 50 mg tablet 50 mg PO DAILY calcium carbonate [Calcium 500] 500 mg calcium (1,250 mg) tablet,chewable 500 mg PO QID ondansetron HCl 8 mg tablet 8 mg PO Q8H PRN aspirin 81 mg tablet,chewable 81 mg PO DAILY albuterol sulfate 90 mcg/actuation HFA aerosol inhaler 2 inh inhalation Q4H PRN Discontinued insulin glargine 100 unit/mL (3 mL) insulin pen 84 unit subcut BID Discharge Orders: Discharge Order (Routine); Ordered 04/17/22 Ordered By: Ana Morejon Patient Education: Influenza (DC) Additional Instructions: Check out the [employer] website for Food Shelf hours/locations. Nyquil/Dayquil/Flonase for symptoms, stay hydrated and REST. You should return to ED with any chest pain or shortness of breath. Check in with your PCP about possible ENT referral to discuss INSPIRE for your sleep apnea Activity Level: Activity as Tolerated and No strenuous activity Activity Detail: No return to work until Sunday, 04/21 Discharge Diet: Diabetic Follow Up Appointments: Provider,Not a Local [Primary Care Provider] - Forms: [facility] Info Instructions
[2022-04-17 10:47] VITALS: BP 111/67; PULSE 73; RESP 18; TEMP 36.4
--- NOTE | 2022-04-17 10:55 | PC.SOCIAL ---
Addendum entered by AUGUSTINA Estes 04/17/22 11:00: Social work internal revenue agent note reviewed. AUGUSTINA Urbina Original Note: Social work note: Social work was informed that pt. is looking for assistance with insurance. Provided pt. with [employer] application packet and information on the [facility]'s insurance navigation services. Social work to follow up as needed.
--- NOTE | 2022-04-17 12:00 | PC.NURSE ---
Discharge-- Pleasant and cooperative, alert and oriented patient discharged to home ambulatory with at approximately 1130. VSS and pt is afebrile. He denied any pain this morning. SPO2 maintained >90% on RA while awake. Occasionally pt's O2 sats dropped briefly as low as 88% on RA as per pt's baseline CATRACHO.LS clear but diminished. BS 119 and pt was given scheduled insulin only. He denied nausea and ate a regular breakfast without difficulty. Discharge education was provided including diagnosis info, symptoms to report, medications and follow up plan. No further questions asked and SL was removed with tip intact.
== END 2022-04-17 12:03 | disposition home or self-care (01) | DRG 113 ==
LOC: ED 10:50 → MEDSURG 11:09
PROVIDERS: Admitting Provider Family Medicine; Emergency Provider Emergency Medicine Emergency Medical Services; PCP Physician Assistant; Visit Provider Family Medicine
DX: J10.1 Influenza due to other identified influenza virus with other respiratory manifestations (principal); J96.01 Acute respiratory failure with hypoxia; I95.9 Hypotension, unspecified; G47.33 Obstructive sleep apnea (adult) (pediatric); E11.9 Type 2 diabetes mellitus without complications; Z79.4 Long term (current) use of insulin; I25.10 Atherosclerotic heart disease of native coronary artery without angina pectoris; I25.2 Old myocardial infarction; I10 Essential (primary) hypertension; F41.8 Other specified anxiety disorders; E78.5 Hyperlipidemia, unspecified; K76.0 Fatty (change of) liver, not elsewhere classified
CPT/HCPCS: 36415; 71045; 80048; 80053; 82962; 84484; 85025; 87493; 87502; 87634; 87635; 93005; 94640; 94664; 94761; 99284; 99285; A9270; J1650; J7030

== ENCOUNTER 2022-04-28 15:16 | Emergency (ER) | payer BC, SELFPAY ==
[2022-04-28] VITALS (25 sets, daily range): BP systolic 161–197; BP diastolic 86–116; PULSE 51–66; RESP 18; TEMP 35.6; O2SAT 89–97; BMI 35.4
--- NOTE | 2022-04-28 15:37 | CRLHL7_ITS ---
For Patients: As a result of the Century Cures Act, medical imaging exams and procedure reports are released immediately into your electronic medical record. You may view this report before your referring provider. If you have questions, please contact your health care provider. INDICATION: SOB TECHNIQUE: Chest 2 views. COMPARISON: 04/15/22 FINDINGS: Cardiovascular and mediastinum: Heart size and vasculature are normal in caliber and appearance. Mediastinum is within normal limits. Lungs and pleural spaces: Lungs are clear. No sign of infiltrate or mass. No sign of pleural effusion. No pneumothorax. Bones and soft tissues: No significant findings. IMPRESSION: Unremarkable chest. Dictated by: Devaughn Villalobos MD @ 04/28/2022 16:31:05 (Electronically Signed)
--- NOTE | 2022-04-28 15:37 | ED_ITS ---
HPI - General Adult General Chief complaint: Shortness of Breath/Dyspnea Stated complaint: Low O2 Low Blood Pressure Time Seen by Provider: 04/28/22 15:31 Source: patient Mode of arrival: ambulatory Limitations: no limitations History of Present Illness HPI narrative: 41-year-old male coming in today complaining of fatigue. States he woke up this morning felt that he had not rested at all. He then checked his oxygen saturation at home with a pulse ox and it was in the upper 80s and he could get it above 91 so he presented to the ER. Patient had influenza 1 week ago. Believes he is starting to feel better and then today felt worse again. He states that he has a constant anterior chest pain which is not new for him- patient is status post coronary artery disease with stenting in 2020 and has chronic discomfort. He is not feeling short of breath. He does cough and has been coughing for about a week. He denies any new fevers or chills. No changes in his appetite, appetite has been good. He denies any swelling of his extremities. Related Data Home Medications Medication Instructions Recorded Confirmed albuterol sulfate 90 mcg/actuation 2 inh inhalation Q4H PRN 04/15/22 04/28/22 aerosol inhaler aspirin 81 mg chewable tablet 81 mg PO DAILY 04/15/22 04/28/22 atorvastatin 80 mg tablet 40 mg PO DAILY 04/15/22 04/28/22 calcium carbonate 500 mg calcium 500 mg PO QID 04/15/22 04/28/22 (1,250 mg) chewable tablet (Calcium 500) carvedilol 25 mg tablet 25 mg PO BID 04/15/22 04/28/22 cyclobenzaprine 10 mg tablet 10 mg PO HS PRN 04/15/22 04/28/22 dapagliflozin 10 mg tablet 10 mg PO DAILY 04/15/22 04/28/22 epinephrine 0.3 mg/0.3 mL 0.3 ml IM Q5-15M PRN 04/15/22 04/28/22 injection, auto-injector eplerenone 25 mg tablet 25 mg PO DAILY 04/15/22 04/28/22 famotidine 20 mg tablet (Acid 20 mg PO BID 04/15/22 04/28/22 Controller) furosemide 20 mg tablet 20 mg PO DAILY 04/15/22 04/28/22 insulin lispro 100 unit/mL 20 unit subcut TID 04/15/22 04/28/22 subcutaneous solution (Humalog U-100 Insulin) isosorbide mononitrate 30 mg 30 mg PO DAILY 04/15/22 04/28/22 tablet,extended release 24 hr losartan 100 mg tablet (Cozaar) 100 mg PO DAILY 04/15/22 04/28/22 nitroglycerin 0.4 mg sublingual 0.8 mg sublingual Q5M 04/15/22 04/28/22 tablet ondansetron HCl 8 mg tablet 8 mg PO Q8H PRN 04/15/22 04/28/22 prasugrel 10 mg tablet (Effient) 10 mg PO DAILY 04/15/22 04/28/22 sertraline 50 mg tablet 50 mg PO DAILY 04/15/22 04/28/22 Previous Rx's Medication Instructions Recorded insulin detemir U-100 100 unit/mL 38 unit (0.38 mL) subcut BID #15 mL 04/17/22 (3 mL) subcutaneous pen (Levemir FlexTouch U-100 Insulin) oseltamivir 75 mg capsule 75 mg PO BID 3 days #6 caps 04/17/22 Allergies Allergy/AdvReac Type Severity Reaction Status Date / Time cephalexin [From Keflex] Allergy Verified 04/28/22 15:29 Iodinated Contrast Media Allergy Verified 04/28/22 15:29 morphine Allergy Verified 04/28/22 15:29 Penicillins Allergy Verified 04/28/22 15:29 Sulfa (Sulfonamide Allergy Verified 04/28/22 15:29 Antibiotics) Review of Systems Status of ROS: Reports: 10 or more systems reviewed and unremarkable except as noted in History and below [facility] Medical History Coronary artery disease Depression Elevated LFTs Essential hypertension Fatty liver IDDM (insulin dependent diabetes mellitus) CATRACHO (obstructive sleep apnea) Surgical History History of back surgery History of cholecystectomy S/P surgery on nasal septum Social History Smoking Status: Never smoker How often do you have a drink containing alcohol: never How often do you have six or more drinks on one occasion: Never AUDIT-C Alcohol total score: 0 Non-prescribed substance use: marijuana (any form) Exam Narrative: Exam Narrative: Overweight, well-developed patient in no acute distress. Alert and oriented. Answers questions appropriately. Mood and affect are appropriate. Thoughts are goal oriented and rational. No tangential or magical thinking noted. Patient speaks in full sentences without needing to catch his breath. He does not appear ill or toxic, but does appear tired. HEENT: Normocephalic atraumatic. Pupils are equally round reactive to light. Extraocular muscles are intact. Conjunctivae are moist without any icterus noted. Moist mucous membranes. Posterior pharynx is normal. Neck is soft without any lymphadenopathy or thyromegaly. No masses are appreciated. Cardiovascular: Heart is regular rate and rhythm S1 and S2 are present without any murmurs. Lungs: Clear to auscultation bilaterally no wheezes rhonchi or rales are appreciated. Patient takes deep breaths without any discomfort. I cannot reproduce his chest pain on palpation. Abdomen: Soft and nontender nondistended with normal bowel sounds. No guarding or rebound. No masses or organomegaly appreciated. Extremities: Bilateral lower extremities are without edema. Normal DP and PT pulses. Skin: Well perfused without any obvious rashes. Const: Vital Signs, click to edit/add: Vital Signs - 24 hr 04/28/22 15:21 04/28/22 15:37 04/28/22 15:45 Temperature 96.0 F L Pulse Rate Pulse Rate [Right Pulse Oximeter] 58 L 66 Respiratory Rate 18 Blood Pressure Blood Pressure [Ri ght Upper Arm] 161/86 H 172/95 H Pulse Oximetry 97 93 Oxygen Delivery Me thod Room Air 04/28/22 15:56 04/28/22 16:00 04/28/22 16:01 Temperature Pulse Rate 59 L 60 58 L Pulse Rate [Right Pulse Oximeter] Respiratory Rate Blood Pressure 165/100 H Blood Pressure [Ri ght Upper Arm] Pulse Oximetry 91 92 93 Oxygen Delivery Me thod 04/28/22 16:02 04/28/22 16:15 04/28/22 16:28 Temperature Pulse Rate 58 L 58 L 54 L Pulse Rate [Right Pulse Oximeter] Respiratory Rate Blood Pressure 180/97 H Blood Pressure [Ri ght Upper Arm] Pulse Oximetry 92 93 94 Oxygen Delivery Me thod 04/28/22 16:29 04/28/22 16:30 04/28/22 16:32 Temperature Pulse Rate 53 L 53 L 59 L Pulse Rate [Right Pulse Oximeter] Respiratory Rate Blood Pressure 178/99 H Blood Pressure [Ri ght Upper Arm] Pulse Oximetry 93 92 90 Oxygen Delivery Me thod 04/28/22 16:46 04/28/22 16:47 04/28/22 17:00 Temperature Pulse Rate 62 56 L 58 L Pulse Rate [Right Pulse Oximeter] Respiratory Rate Blood Pressure 187/103 H Blood Pressure [Ri ght Upper Arm] Pulse Oximetry 95 95 89 Oxygen Delivery Me thod 04/28/22 17:02 04/28/22 17:15 04/28/22 17:16 Temperature Pulse Rate 55 L 51 L 53 L Pulse Rate [Right Pulse Oximeter] Respiratory Rate Blood Pressure 177/105 H 183/100 H Blood Pressure [Ri ght Upper Arm] Pulse Oximetry 90 94 92 Oxygen Delivery Me thod 04/28/22 17:30 04/28/22 17:32 Temperature Pulse Rate 59 L 54 L Pulse Rate [Right Pulse Oximeter] Respiratory Rate Blood Pressure 165/106 H Blood Pressure [Ri ght Upper Arm] Pulse Oximetry 94 92 Oxygen Delivery Me thod Course Course Hospital Course: IV was established labs were drawn. EKG was done, read by me, shows normal sinus rhythm with a nonspecific intraventricular block. Labs were unremarkable. His troponin was elevated at 0.16, repeat was 0.15. Patient's baseline troponin has been about 0.18-0.19 so this is not abnormal for him. LFTs have now normalized since his last hospitalization. D-dimer is within normal limits. Chest x-ray, read by me, does not show any acute pathology. While he was here he was able to sleep. Patient's oxygenation level ranged from 92-97% while he was in the ER. Vital Signs Vital signs: Initial Vital Signs Temperature 96.0 F L 04/28/22 15:21 Temperature Source Temporal Artery Scan 04/28/22 15:21 Pulse Rate 58 L 04/28/22 15:21 Respiratory Rate 18 04/28/22 15:21 Blood Pressure 161/86 H 04/28/22 15:21 Blood Pressure Mean 111 04/28/22 15:21 Blood Pressure Position Sitting 04/28/22 15:21 Pulse Oximetry 97 04/28/22 15:21 Oxygen Delivery Method 04/28/22 15:21 Vital Signs Temperature 96.0 F L 04/28/22 15:21 Pulse Rate 58 L 04/28/22 15:21 Respiratory Rate 18 04/28/22 15:21 Blood Pressure 161/86 H 04/28/22 15:21 Pulse Oximetry 97 04/28/22 15:21 Oxygen Delivery Method 04/28/22 15:21 Temperature 96.0 F L 04/28/22 15:21 Pulse Rate 54 L 04/28/22 17:32 Respiratory Rate 18 04/28/22 15:21 Blood Pressure 165/106 H 04/28/22 17:32 Pulse Oximetry 92 04/28/22 17:32 Oxygen Delivery Method 04/28/22 15:21 Medical Decision Making MDM Narrative Medical decision making narrative: [age] year male presenting with fatigue. I do not see any evidence of recurring infection in his exam, lab work, imaging. I do not think this is cardiovascular in nature as he has a stable EKG and stable troponins. We discussed resting, nutrition, and follow-up with his primary care provider this coming week. Certainly return to the ER for any concerning symptoms. Patient and were agreeable. Lastly, his blood pressure was elevated while he was here-recommend he have a conversation with primary care provider this coming week in regards to better blood pressure control. Medical Records Medical records reviewed: Yes I reviewed the patient's medical records Lab Data Lab results reviewed: Yes I reviewed the patient's lab results Labs: Lab Results 04/28/22 04/28/22 04/28/22 Range/Units 15:38 15:44 15:44 WBC 5.34 (4.50-11.00) K/uL RBC 4.46 (4.30-5.90) m/uL Hgb 12.9 L (13.5-17.5) gm/dL Hct 40.1 (37.0-53.0) % MCV 90 (80-100) fL MCH 29 (26-34) pg MCHC 32 (32-36) gm/dL RDW Coeff of Parker 13.1 (11.5-15.5) % Plt Count 205 (140-440) K/uL Neut % (Auto) 53.7 (42.0-72.0) % Lymph % (Auto) 27.0 (20-44) % Benzie % (Auto) 12.5 H (0.0-11.0) % Eos % (Auto) 6.2 (0.0-7.0) % Baso % (Auto) 0.4 (0.0-3.0) % Neut # (Auto) 2.87 (1.7-7.0) K/uL Lymph # (Auto) 1.44 (0.90-2.90) K/uL Benzie # (Auto) 0.70 (0.00-0.90) K/UL Eos # (Auto) 0.33 (0.00-0.50) K/uL Baso # (Auto) 0.02 (0.00-0.30) K/uL Abs Immat Gran (auto) 0.01 (0.00-0.30) K/uL Imm/Tot Granulo (auto) 0.2 % D-Dimer Quant (PE/DVT) (0.00-0.50) ug/ml Sodium 144 (135-149) mmol/L Potassium 3.6 (3.6-5.1) mmol/L Chloride 107 (96-114) mmol/L Carbon Dioxide 33 H (20-32) mmol/L BUN 13 (5-24) mg/dL Creatinine 0.9 (0.5-1.5) mg/dL Estimated Creat Clear 108.01 Estimated GFR 110 ml/min Glucose 217 H (60-115) mg/dL Lactate (0.5-1.9) mmol/L Calcium 9.2 (8.4-10.6) mg/dL Total Bilirubin 0.4 (0.1-1.5) mg/dL Direct Bilirubin 0.1 (0.0-0.5) mg/dL AST 25 (12-35) U/L ALT 23 (4-50) U/L Alkaline Phosphatase 127 (40-150) U/L Troponin I 0.16 H* (0.01-0.04) ng/mL C-Reactive Protein 0.9 (0.5-1.0) mg/dL Total Protein 6.9 (6.0-8.3) g/dL Albumin 3.7 (3.3-5.0) g/dL SARS-CoV-2 (PCR) (Negative) Influenza Type A (PCR) (Negative) Influenza Type B (PCR) (Negative) POC Troponin I 0.06 H (0.01-0.04) ng/ml 04/28/22 04/28/22 04/28/22 Range/Units 15:44 15:44 15:44 WBC (4.50-11.00) K/uL RBC (4.30-5.90) m/uL Hgb (13.5-17.5) gm/dL Hct (37.0-53.0) % MCV (80-100) fL MCH (26-34) pg MCHC (32-36) gm/dL RDW Coeff of Parker (11.5-15.5) % Plt Count (140-440) K/uL Neut % (Auto) (42.0-72.0) % Lymph % (Auto) (20-44) % Benzie % (Auto) (0.0-11.0) % Eos % (Auto) (0.0-7.0) % Baso % (Auto) (0.0-3.0) % Neut # (Auto) (1.7-7.0) K/uL Lymph # (Auto) (0.90-2.90) K/uL Benzie # (Auto) (0.00-0.90) K/UL Eos # (Auto) (0.00-0.50) K/uL Baso # (Auto) (0.00-0.30) K/uL Abs Immat Gran (auto) (0.00-0.30) K/uL Imm/Tot Granulo (auto) % D-Dimer Quant (PE/DVT) 0.33 (0.00-0.50) ug/ml Sodium (135-149) mmol/L Potassium (3.6-5.1) mmol/L Chloride (96-114) mmol/L Carbon Dioxide (20-32) mmol/L BUN (5-24) mg/dL Creatinine (0.5-1.5) mg/dL Estimated Creat Clear Estimated GFR ml/min Glucose (60-115) mg/dL Lactate 1.1 (0.5-1.9) mmol/L Calcium (8.4-10.6) mg/dL Total Bilirubin Cancelled (0.1-1.5) mg/dL Direct Bilirubin Cancelled (0.0-0.5) mg/dL AST Cancelled (12-35) U/L ALT Cancelled (4-50) U/L Alkaline Phosphatase Cancelled (40-150) U/L Troponin I (0.01-0.04) ng/mL C-Reactive Protein (0.5-1.0) mg/dL Total Protein Cancelled (6.0-8.3) g/dL Albumin Cancelled (3.3-5.0) g/dL SARS-CoV-2 (PCR) (Negative) Influenza Type A (PCR) (Negative) Influenza Type B (PCR) (Negative) POC Troponin I (0.01-0.04) ng/ml 04/28/22 04/28/22 Range/Units 15:50 17:15 WBC (4.50-11.00) K/uL RBC (4.30-5.90) m/uL Hgb (13.5-17.5) gm/dL Hct (37.0-53.0) % MCV (80-100) fL MCH (26-34) pg MCHC (32-36) gm/dL RDW Coeff of Parker (11.5-15.5) % Plt Count (140-440) K/uL Neut % (Auto) (42.0-72.0) % Lymph % (Auto) (20-44) % Benzie % (Auto) (0.0-11.0) % Eos % (Auto) (0.0-7.0) % Baso % (Auto) (0.0-3.0) % Neut # (Auto) (1.7-7.0) K/uL Lymph # (Auto) (0.90-2.90) K/uL Benzie # (Auto) (0.00-0.90) K/UL Eos # (Auto) (0.00-0.50) K/uL Baso # (Auto) (0.00-0.30) K/uL Abs Immat Gran (auto) (0.00-0.30) K/uL Imm/Tot Granulo (auto) % D-Dimer Quant (PE/DVT) (0.00-0.50) ug/ml Sodium (135-149) mmol/L Potassium (3.6-5.1) mmol/L Chloride (96-114) mmol/L Carbon Dioxide (20-32) mmol/L BUN (5-24) mg/dL Creatinine (0.5-1.5) mg/dL Estimated Creat Clear Estimated GFR ml/min Glucose (60-115) mg/dL Lactate (0.5-1.9) mmol/L Calcium (8.4-10.6) mg/dL Total Bilirubin (0.1-1.5) mg/dL Direct Bilirubin (0.0-0.5) mg/dL AST (12-35) U/L ALT (4-50) U/L Alkaline Phosphatase (40-150) U/L Troponin I 0.15 H* (0.01-0.04) ng/mL C-Reactive Protein (0.5-1.0) mg/dL Total Protein (6.0-8.3) g/dL Albumin (3.3-5.0) g/dL SARS-CoV-2 (PCR) Negative SARS-CoV-2 (Negative) Influenza Type A (PCR) Negative PCR FLU A (Negative) Influenza Type B (PCR) Negative PCR FLU B (Negative) POC Troponin I (0.01-0.04) ng/ml Imaging Data Chest x-ray: Attestation: I have reviewed the pertinent imaging results. Radiologist's impression: Chest 2 views. COMPARISON: 04/15/22 FINDINGS: Cardiovascular and mediastinum:? Heart size and vasculature are normal in caliber and appearance.? Mediastinum is within normal limits.? Lungs and pleural spaces:? Lungs are clear.? No sign of infiltrate or mass. ?No sign of pleural effusion.? No pneumothorax.? Bones and soft tissues:? No significant findings.? IMPRESSION: Unremarkable chest. ECG Data Attestation: I personally reviewed and interpreted this ECG as follows: (Normal sinus rhythm, nonspecific intraventricular block, pulse is 60) Discharge Plan Discharge Clinical Impression: Fatigue, Cough Patient Disposition: Home, Self-Care Condition: Stable Additional Instructions: Rest as often as you need to. Make sure you are eating solar sales consultant foods. Okay to try warm tea with honey for your cough or [id number] cough syrup. Recommend following up with your primary care provider early next week to d iscuss her blood pressure. Return to the ER for any concerning symptoms. Prescriptions: No Action carvedilol 25 mg tablet 25 mg PO BID Rx Instructions: must administer with a meal/food atorvastatin 80 mg tablet 40 mg PO DAILY cyclobenzaprine 10 mg tablet 10 mg PO HS PRN dapagliflozin 10 mg tablet 10 mg PO DAILY epinephrine 0.3 mg/0.3 mL auto-injector 0.3 ml IM Q5-15M PRN Rx Instructions: do not exceed 3 doses per episode eplerenone 25 mg tablet 25 mg PO DAILY famotidine [Acid Controller] 20 mg tablet 20 mg PO BID furosemide 20 mg tablet 20 mg PO DAILY insulin lispro [Humalog U-100 Insulin] 100 unit/mL solution 20 unit subcut TID Rx Instructions: with meal isosorbide mononitrate 30 mg tablet extended release 24 hr 30 mg PO DAILY losartan [Cozaar] 100 mg tablet 100 mg PO DAILY nitroglycerin 0.4 mg tablet, sublingual 0.8 mg sublingual Q5M Rx Instructions: do not exceed 3 doses per episode prasugrel [Effient] 10 mg tablet 10 mg PO DAILY sertraline 50 mg tablet 50 mg PO DAILY calcium carbonate [Calcium 500] 500 mg calcium (1,250 mg) tablet,chewable 500 mg PO QID ondansetron HCl 8 mg tablet 8 mg PO Q8H PRN aspirin 81 mg tablet,chewable 81 mg PO DAILY albuterol sulfate 90 mcg/actuation HFA aerosol inhaler 2 inh inhalation Q4H PRN Levemir FlexTouch U-100 Insuln 100 unit/mL (3 mL) Insulin Pen 38 unit subcut BID Qty: 15 0RF oseltamivir 75 mg Capsule 75 mg PO BID 3 Days Qty: 6 0RF Follow Up/Referrals: Dayday Monroy PA-C [Primary Care Provider] - Stand Alone Forms: [facility] Info Instructions
[2022-04-28 16:01] LABS: Lactate* 1.1 mmol/L (0.5-1.9)
[2022-04-28 16:02] LABS: Troponin, Point-of-Care* 0.06 ng/ml (0.01-0.04)
[2022-04-28 16:03] LABS: Basophils Absolute Auto 0.02 K/uL (0.00-0.30); Basophils Percent Auto 0.4 % (0.0-3.0); Eosinophils Absolute Auto 0.33 K/uL (0.00-0.50); Eosinophils Percent Auto 6.2 % (0.0-7.0); Hematocrit 40.1 % (37.0-53.0); Hemoglobin* 12.9 gm/dL (13.5-17.5); Immature Granulocytes Abs Auto 0.01 K/uL (0.00-0.30); Immature Granulocytes Pct Auto 0.2 %; Lymphocytes Absolute Auto 1.44 K/uL (0.90-2.90); Mean Corpuscular HGB Conc 32 gm/dL (32-36); Mean Corpuscular Hemoglobin 29 pg (26-34); Mean Corpuscular Volume 90 fL (80-100); Monocytes Percent Auto 12.5 % (0.0-11.0); Neutrophils Absolute Auto 2.87 K/uL (1.7-7.0); Neutrophils Percent Auto 53.7 % (42.0-72.0); Platelet Count* 205 K/uL (140-440); RDW Coefficient of Variation % 13.1 % (11.5-15.5); Red Blood Count 4.46 m/uL (4.30-5.90); White Blood Count* 5.34 K/uL (4.50-11.00)
[2022-04-28] MEDS: ASPIRIN 81 MG TAB.CHEW 324 MG PO (16:05)
[2022-04-28 16:16] LABS: Slide Review Reflex No
[2022-04-28 16:35] LABS: Albumin* 3.7 g/dL (3.3-5.0); Chloride* 107 mmol/L (96-114); D Dimer Quantitative* 0.33 ug/ml (0.00-0.50)
[2022-04-28 16:36] LABS: Potassium* 3.6 mmol/L (3.6-5.1); Sodium* 144 mmol/L (135-149)
[2022-04-28 16:38] LABS: Creatinine* 0.9 mg/dL (0.5-1.5); Est. Creatinine Clearance* 108.01; Estimated Glomerular Filt Rate 110 ml/min
[2022-04-28 16:39] LABS: PCR FLU A Negative PCR FLU A (Negative); PCR FLU B Negative PCR FLU B (Negative)
[2022-04-28 16:39] LABS: Alanine Aminotransferase* 23 U/L (4-50); Alkaline Phosphatase* 127 U/L (40-150); Aspartate Amino Transferase* 25 U/L (12-35); Bilirubin Direct* 0.1 mg/dL (0.0-0.5); Bilirubin Total* 0.4 mg/dL (0.1-1.5); Blood Urea Nitrogen* 13 mg/dL (5-24); Calcium* 9.2 mg/dL (8.4-10.6); Carbon Dioxide* 33 mmol/L (20-32); Glucose* 217 mg/dL (60-115); Total Protein* 6.9 g/dL (6.0-8.3)
[2022-04-28 16:40] LABS: SARS PCR* Negative SARS-CoV-2 (Negative)
[2022-04-28 16:42] LABS: C Reactive Protein* 0.9 mg/dL (0.5-1.0)
[2022-04-28 17:02] LABS: Troponin I* 0.16 ng/mL (0.01-0.04)
[2022-04-28 17:58] LABS: Troponin I* 0.15 ng/mL (0.01-0.04)
== END 2022-04-28 18:21 | disposition home or self-care (01) ==
PROVIDERS: Emergency Provider Family Medicine; PCP Physician Assistant
DX: R53.83 Other fatigue (principal); R05.9 Cough, unspecified
CPT/HCPCS: 36415; 71046; 80048; 80076; 83605; 84484; 85025; 85379; 86140; 87631; 93005; 94761; 99284; 99285; A9270

== ENCOUNTER 2022-08-19 08:06 | Day surgery (SDC) | payer BC, SELFPAY ==
[2022-08-19 08:12] VITALS: BP 157/91; PULSE 79; RESP 16; TEMP 36.6; O2SAT 97; BMI 35.9
--- NOTE | 2022-08-19 08:53 | ED_ITS ---
HPI - General Adult General Chief complaint: Eye Problems Stated complaint: Lost vision in RT eye this morning Time Seen by Provider: 08/19/22 08:59 History of Present Illness HPI narrative: This 42-year-old male comes in reporting altered vision in his right eye that started this morning. He states that it seemed like there was an eyelash obstructing his vision minimally but now it is more like a blob that he is looking through. This involves only his right eye. When covering his left eye he is able to identify how many fingers I am holding on my hand but he states that he had trouble driving and reading when using both eyes. He does report a headache in the right temporal region and has some jaw pain over these past couple days. He also reports joint aches and pains. He has not been diagnosed with polymyalgia rheumatica but does have difficulty getting his upper extre mities and hands moving in the morning. He has diabetes type 2 and has history of coronary artery disease. He is taking aspirin and Plavix. He has not had an eye exam because he does not have insurance. Similarly his not been to a dentist with his jaw pain. Related Data Home Medications Medication Instructions Recorded Confirmed albuterol sulfate 90 mcg/actuation 2 inh inhalation Q4H PRN 04/15/22 08/19/22 aerosol inhaler aspirin 81 mg chewable tablet 81 mg PO DAILY 04/15/22 08/19/22 atorvastatin 80 mg tablet 40 mg PO DAILY 04/15/22 08/19/22 calcium carbonate 500 mg calcium 500 mg PO QID 04/15/22 08/19/22 (1,250 mg) chewable tablet (Calcium 500) carvedilol 25 mg tablet 25 mg PO BID 04/15/22 08/19/22 cyclobenzaprine 10 mg tablet 10 mg PO HS PRN 04/15/22 04/28/22 dapagliflozin 10 mg tablet 10 mg PO DAILY 04/15/22 04/28/22 epinephrine 0.3 mg/0.3 mL 0.3 ml IM Q5-15M PRN 04/15/22 04/28/22 injection, auto-injector eplerenone 25 mg tablet 25 mg PO DAILY 04/15/22 08/19/22 famotidine 20 mg tablet (Acid 20 mg PO BID 04/15/22 08/19/22 Controller) furosemide 20 mg tablet 20 mg PO DAILY 04/15/22 08/19/22 insulin lispro 100 unit/mL 20 unit subcut TID 04/15/22 08/19/22 subcutaneous solution (Humalog U-100 Insulin) isosorbide mononitrate 30 mg 30 mg PO DAILY 04/15/22 08/19/22 tablet,extended release 24 hr losartan 100 mg tablet (Cozaar) 100 mg PO DAILY 04/15/22 08/19/22 nitroglycerin 0.4 mg sublingual 0.8 mg sublingual Q5M 04/15/22 04/28/22 tablet ondansetron HCl 8 mg tablet 8 mg PO Q8H PRN 04/15/22 04/28/22 prasugrel 10 mg tablet (Effient) 10 mg PO DAILY 04/15/22 08/19/22 sertraline 50 mg tablet 50 mg PO DAILY 04/15/22 08/19/22 Previous Rx's Medication Instructions Recorded insulin detemir U-100 100 unit/mL 38 unit (0.38 mL) subcut BID #15 mL 04/17/22 (3 mL) subcutaneous pen (Levemir FlexTouch U-100 Insulin) oseltamivir 75 mg capsule 75 mg PO BID 3 days #6 caps 04/17/22 prednisone 20 mg tablet 20 mg PO DAILY #20 tabs 08/19/22 Allergies Allergy/AdvReac Type Severity Reaction Status Date / Time cephalexin [From Keflex] Allergy Verified 08/19/22 08:19 Iodinated Contrast Media Allergy Verified 08/19/22 08:19 morphine Allergy Verified 08/19/22 08:19 Penicillins Allergy Verified 08/19/22 08:19 Sulfa (Sulfonamide Allergy Verified 08/19/22 08:19 Antibiotics) Review of Systems Status of ROS: Reports: 10 or more systems reviewed and unremarkable except as noted in History and below Narrative: Constitutional: No fevers, no weight gain or loss. Eyes: No discharge. Visual changes in the right eye as described above. HENT: No congestion, no sore throat, no ear pain. Cardiovascular: No chest pain, no palpitations. Respiratory: No shortness of breath, no wheezes, no cough. Gastrointestinal: No abdominal pain, no vomiting, no diarrhea. Genitourinary: No dysuria, no hematuria. Musculoskeletal: Normal range of motion. Various aches and pains in joints throughout his body. Skin: No rashes, no pruritis. Neurological: No dizziness, weakness, sensory change, speech change. Endo/Heme/Allergies: No bruising or bleeding. No polydipsia. Pysch: no suicidality, no anxiety, no insomnia. All other systems reviewed and are negative. [facility] Medical History Coronary artery disease Depression Elevated LFTs Essential hypertension Fatty liver IDDM (insulin dependent diabetes mellitus) CATRACHO (obstructive sleep apnea) Surgical History History of back surgery History of cholecystectomy S/P surgery on nasal septum Social History Smoking Status: Never smoker How often do you have a drink containing alcohol: never How often do you have six or more drinks on one occasion: Never AUDIT-C Alcohol total score: 0 Non-prescribed substance use: marijuana (any form) Exam Narrative: Exam Narrative: Constitutional: Well-developed, well-nourished, no acute distress. HEENT: Normocephalic, atraumatic. Funduscopic exam and nondilated eye appears normal bilaterally. I do not hear a temporal artery bruit on auscultation. Neck: Normal range of motion. Nontender. Supple. No carotid bruits auscultated. Heart: Regular. No murmurs. Normal rate. Intact distal pulses. Lungs: Clear to auscultation. No chest discomfort. No wheezes, rhonchi, or rales. Abdomen: Normal bowel sounds. Nontender. No rebound tenderness. Genitalia: Deferred. Back: No midline tenderness. Normal range of motion. Extremities: Normal range of motion. No injury. Skin: Intact. No rash. Warm. No erythema or pallor. Neurologic: No altered sensation. No weakness. Alert and oriented. No facial asymmetry. No unilateral weakness. He is ambulatory without difficulty. Psychiatric: No suicidality. No anxiety or depression. No insomnia. Nursing notes and vitals signs are reviewed. Const: Vital Signs, click to edit/add: Vital Signs - 24 hr 08/19/22 08:12 Temperature 97.9 F Pulse Rate [Left P ulse Oximeter] 79 Respiratory Rate 16 Blood Pressure [Ri ght Upper Arm] 157/91 H Pulse Oximetry 97 Oxygen Delivery Me thod Room Air Course Vital Signs Vital signs: Initial Vital Signs Temperature 97.9 F 08/19/22 08:12 Temperature Source Temporal Artery Scan 08/19/22 08:12 Pulse Rate 79 08/19/22 08:12 Respiratory Rate 16 08/19/22 08:12 Blood Pressure 157/91 H 08/19/22 08:12 Blood Pressure Mean 113 08/19/22 08:12 Blood Pressure Position Sitting 08/19/22 08:12 Pulse Oximetry 97 08/19/22 08:12 Oxygen Delivery Method Room Air 08/19/22 08:12 Vital Signs Temperature 97.9 F 08/19/22 08:12 Pulse Rate 79 08/19/22 08:12 Respiratory Rate 16 08/19/22 08:12 Blood Pressure 157/91 H 08/19/22 08:12 Pulse Oximetry 97 08/19/22 08:12 Oxygen Delivery Method Room Air 08/19/22 08:12 Temperature 97.9 F 08/19/22 08:12 Pulse Rate 79 08/19/22 08:12 Respiratory Rate 16 08/19/22 08:12 Blood Pressure 157/91 H 08/19/22 08:12 Pulse Oximetry 97 08/19/22 08:12 Oxygen Delivery Method Room Air 08/19/22 08:12 Medical Decision Making MDM Narrative Medical decision making narrative: This patient comes in with changes in his right eye vision and reporting a headache and pain in the nondenominational region on the right side of his head. He also has history of joint aches and pains. His symptoms are very suspicious for polymyalgia rheumatica and temporal arteritis. An IV was established and the patient did receive an IV dose of Solu-Medrol 125 mg. This was done because of such strong suspicion of temporal arteritis even know the diagnosis is not confirmed. I did speak with Dr. Laurnet, surgeon on-call, who came and saw the patient and was able to do a temporal artery biopsy today. The patient is discharged to the OR for this to occur. His lab results are reassuring but his sed rate is elevated to 34 consistent with possibility of this diagnosis. I did prescribe prednisone and indicated that his blood glucose will definitely increased. He is using insulin and understands that he will need to increase his dosing accordingly. The patient does have a primary care physician. I stressed the importance of follow-up next week to manage these diagnoses and appropriate treatment. Lab Data Labs: Lab Results 08/19/22 08/19/22 Range/Units 08:45 08:48 WBC 6.51 (4.50-11.00) K/uL RBC 4.87 (4.30-5.90) m/uL Hgb 14.0 (13.5-17.5) gm/dL Hct 42.9 (37.0-53.0) % MCV 88 (80-100) fL MCH 29 (26-34) pg MCHC 33 (32-36) gm/dL RDW Coeff of [place] 12.8 (11.5-15.5) % Plt Count 216 (140-440) K/uL Neut % (Auto) 61.0 (42.0-72.0) % Lymph % (Auto) 24.0 (20-44) % [place] % (Auto) 8.9 (0.0-11.0) % Eos % (Auto) 5.1 (0.0-7.0) % Baso % (Auto) 0.8 (0.0-3.0) % Neut # (Auto) 3.98 (1.7-7.0) K/uL Lymph # (Auto) 1.56 (0.90-2.90) K/uL [place] # (Auto) 0.60 (0.00-0.90) K/UL Eos # (Auto) 0.33 (0.00-0.50) K/uL Baso # (Auto) 0.05 (0.00-0.30) K/uL ESR 34 H (2-15) mm/hr Sodium 141 (135-149) mmol/L Potassium 3.9 (3.6-5.1) mmol/L Chloride 110 (96-114) mmol/L Carbon Dioxide 28 (20-32) mmol/L BUN 19 (5-24) mg/dL Creatinine 1.0 (0.5-1.5) mg/dL Estimated Creat Clear 96.23 Estimated GFR 96 ml/min Glucose 222 H (60-115) mg/dL Calcium 8.9 (8.4-10.6) mg/dL Phosphorus 4.0 (2.5-4.5) mg/dL C-Reactive Protein 1.0 (0.5-1.0) mg/dL Urine Color Yellow (Yellow) Urine Appearance Clear (Clear) Urine pH 5.0 (5.0-8.5) Ur Specific [place] 1.015 (1.000-1.030) Urine Protein 3+ A (Negative) Urine Glucose (UA) 2+ A (Negative) Urine Ketones Negative (Negative) Urine Blood 1+ A (Negative) Urine Nitrite Negative (Negative) Urine Bilirubin Negative (Negative) Urine Urobilinogen 0.2 (0.2-1.0) Ur Leukocyte Esterase Negative (Negative) Urine RBC 2-5 A (0-2) Urine WBC 0-2 (0-5) Ur Squamous Epith Cells Few (None-Few) Urine Bacteria Few A (None) Discharge Plan Discharge Clinical Impression: Temporal arteritis Patient Disposition: XFER to OR Condition: Unchanged
[2022-08-19] MEDS: METHYLPREDNISOLONE SOD SUCC 62.5 MG/ML (125) 125 MG IVP (08:55)
[2022-08-19 08:58] LABS: Appearance Urine Clear (Clear); Bilirubin Urine Negative (Negative); Blood Urine 1+ (Negative); Color Urine Yellow (Yellow); Glucose Urine 2+ (Negative); Ketones Urine Negative (Negative); Leukocyte Esterase Urine Negative (Negative); Nitrite Urine Negative (Negative); Protein Urine 3+ (Negative); Specific Gravity Urine 1.015 (1.000-1.030); Urobilinogen Urine 0.2 (0.2-1.0)
[2022-08-19 09:02] LABS: Basophils Absolute Auto 0.05 K/uL (0.00-0.30); Basophils Percent Auto 0.8 % (0.0-3.0); Eosinophils Absolute Auto 0.33 K/uL (0.00-0.50); Eosinophils Percent Auto 5.1 % (0.0-7.0); Hematocrit 42.9 % (37.0-53.0); Immature Granulocytes Abs Auto 0.01 K/uL (0.00-0.30); Immature Granulocytes Pct Auto 0.2 %; Lymphocytes Absolute Auto 1.56 K/uL (0.90-2.90); Mean Corpuscular HGB Conc 33 gm/dL (32-36); Mean Corpuscular Hemoglobin 29 pg (26-34); Mean Corpuscular Volume 88 fL (80-100); Monocytes Percent Auto 8.9 % (0.0-11.0); Neutrophils Absolute Auto 3.98 K/uL (1.7-7.0); Platelet Count* 216 K/uL (140-440); RDW Coefficient of Variation % 12.8 % (11.5-15.5); Red Blood Count 4.87 m/uL (4.30-5.90); White Blood Count* 6.51 K/uL (4.50-11.00)
[2022-08-19 09:03] LABS: Slide Review Reflex No
[2022-08-19 09:10] LABS: Chloride* 110 mmol/L (96-114); Potassium* 3.9 mmol/L (3.6-5.1); Sodium* 141 mmol/L (135-149)
[2022-08-19 09:12] LABS: Bacteria Urine Few; Squamous Epithelial Cell Urine Few (None-Few)
[2022-08-19 09:13] LABS: WBC Urine 0-2 (0-5)
[2022-08-19 09:13] LABS: Est. Creatinine Clearance* 96.23; Estimated Glomerular Filt Rate 96 ml/min
[2022-08-19 09:14] LABS: Blood Urea Nitrogen* 19 mg/dL (5-24); Calcium* 8.9 mg/dL (8.4-10.6); Carbon Dioxide* 28 mmol/L (20-32); Glucose* 222 mg/dL (60-115)
[2022-08-19 09:45] LABS: Erythrocyte SedimentationRate* 34 mm/hr (2-15)
--- NOTE | 2022-08-19 10:59 | P.GSCN_ITS ---
History of Present Illness Consult details Date Seen: 08/19/22 Consult date: 08/19/22 Narrative: Patient presented to the emergency department with 4 days of right-sided temporal/jaw pain and new onset blurry vision. He states that he woke up this morning was unable to see properly out of his right eye. It has not improved since being in the emergency department. He also reports joint pain and discomfort that has been going on for a few months. A few teeth on the right side are also giving him pain. He does not currently have dental or medical insurance. He does have a history of type 2 diabetes, currently controlled with insulin. His medical history is also significant for an [place] 2 years earlier. He denies any previous problems with anesthesia, bleeding or blood clots. Review of Systems Status of ROS: Reports: 10 or more systems reviewed and unremarkable except as noted in History and below [facility] Medical History Coronary artery disease Depression Elevated LFTs Essential hypertension Fatty liver IDDM (insulin dependent diabetes mellitus) CATRACHO (obstructive sleep apnea) Surgical History History of back surgery History of cholecystectomy S/P surgery on nasal septum Social History Smoking Status: Never smoker How often do you have a drink containing alcohol: never How often do you have six or more drinks on one occasion: Never AUDIT-C Alcohol total score: 0 Non-prescribed substance use: marijuana (any form) Meds Home Medications and Allergies Home Medications Medication Instructions Recorded Confirmed Type albuterol sulfate 90 mcg/actuation 2 inh inhalation Q4H PRN 04/15/22 08/19/22 History aerosol inhaler aspirin 81 mg chewable tablet 81 mg PO DAILY 04/15/22 08/19/22 History atorvastatin 80 mg tablet 40 mg PO DAILY 04/15/22 08/19/22 History calcium carbonate 500 mg calcium 500 mg PO QID 04/15/22 08/19/22 History (1,250 mg) chewable tablet (Calcium 500) carvedilol 25 mg tablet 25 mg PO BID 04/15/22 08/19/22 History cyclobenzaprine 10 mg tablet 10 mg PO HS PRN 04/15/22 04/28/22 History dapagliflozin 10 mg tablet 10 mg PO DAILY 04/15/22 04/28/22 History epinephrine 0.3 mg/0.3 mL 0.3 ml IM Q5-15M PRN 04/15/22 04/28/22 History injection, auto-injector eplerenone 25 mg tablet 25 mg PO DAILY 04/15/22 08/19/22 History famotidine 20 mg tablet (Acid 20 mg PO BID 04/15/22 08/19/22 History Controller) furosemide 20 mg tablet 20 mg PO DAILY 04/15/22 08/19/22 History insulin lispro 100 unit/mL 20 unit subcut TID 04/15/22 08/19/22 History subcutaneous solution (Humalog U-100 Insulin) isosorbide mononitrate 30 mg 30 mg PO DAILY 04/15/22 08/19/22 History tablet,extended release 24 hr losartan 100 mg tablet (Cozaar) 100 mg PO DAILY 04/15/22 08/19/22 History nitroglycerin 0.4 mg sublingual 0.8 mg sublingual Q5M 04/15/22 04/28/22 History tablet ondansetron HCl 8 mg tablet 8 mg PO Q8H PRN 04/15/22 04/28/22 History prasugrel 10 mg tablet (Effient) 10 mg PO DAILY 04/15/22 08/19/22 History sertraline 50 mg tablet 50 mg PO DAILY 04/15/22 08/19/22 History Allergies Allergy/AdvReac Type Severity Reaction Status Date / Time cephalexin [From Keflex] Allergy Verified 08/19/22 08:19 Iodinated Contrast Media Allergy Verified 08/19/22 08:19 morphine Allergy Verified 08/19/22 08:19 Penicillins Allergy Verified 08/19/22 08:19 Sulfa (Sulfonamide Allergy Verified 08/19/22 08:19 Antibiotics) Exam Narrative: Exam Narrative: General: Alert and oriented, no acute distress Respiratory: Equal breath rise bilaterally, maintained on room air CV: Regular rhythm rate, well perfused HEENT: Right-sided temporal tenderness to palpation Const: Vital Signs, click to edit/add: Vital Signs - 24 hr 08/19/22 08:12 Temperature 97.9 F Pulse Rate [Left P ulse Oximeter] 79 Respiratory Rate 16 Blood Pressure [Ri ght Upper Arm] 157/91 H Pulse Oximetry 97 Oxygen Delivery Ak thod Room Air Results Labs Labs: Abnormal lab results 08/19/22 08/19/22 Range/Units 08:45 08:48 ESR 34 H (2-15) mm/hr Glucose 222 H (60-115) mg/dL Urine Protein 3+ A (Negative) Urine Glucose (UA) 2+ A (Negative) Urine Blood 1+ A (Negative) Urine RBC 2-5 A (0-2) Urine Bacteria Few A (None) Diabetes panel 08/19/22 Range/Units 08:45 Sodium 141 (135-149) mmol/L Potassium 3.9 (3.6-5.1) mmol/L Chloride 110 (96-114) mmol/L Carbon Dioxide 28 (20-32) mmol/L BUN 19 (5-24) mg/dL Creatinine 1.0 (0.5-1.5) mg/dL Glucose 222 H (60-115) mg/dL Calcium 8.9 (8.4-10.6) mg/dL Calcium panel 08/19/22 Range/Units 08:45 Calcium 8.9 (8.4-10.6) mg/dL Phosphorus 4.0 (2.5-4.5) mg/dL Pituitary panel 08/19/22 Range/Units 08:45 Sodium 141 (135-149) mmol/L Potassium 3.9 (3.6-5.1) mmol/L Chloride 110 (96-114) mmol/L Carbon Dioxide 28 (20-32) mmol/L BUN 19 (5-24) mg/dL Creatinine 1.0 (0.5-1.5) mg/dL Glucose 222 H (60-115) mg/dL Calcium 8.9 (8.4-10.6) mg/dL Adrenal panel 08/19/22 Range/Units 08:45 Sodium 141 (135-149) mmol/L Potassium 3.9 (3.6-5.1) mmol/L Chloride 110 (96-114) mmol/L Carbon Dioxide 28 (20-32) mmol/L BUN 19 (5-24) mg/dL Creatinine 1.0 (0.5-1.5) mg/dL Glucose 222 H (60-115) mg/dL Calcium 8.9 (8.4-10.6) mg/dL All other labs normal. Assessment and Plan Assessment and plan (1) Temporal arteritis: Status: Acute Plan Patient presents to the emergency department with severe right-sided headache and new onset right-sided visual changes. Workup was obtained with elevated ESR (32), CRP (1). Symptoms and clinical workup is suspicious for possible temporal arteritis. He was given a 1 time dose of steroids in the emergency department. I discussed with the patient the utility of getting a temporal artery biopsy. He does understand that this would only confirm the diagnosis, and not provide any symptom relief, with the benefit being that if it is a negative finding then his steroids can be stopped sooner. This would be beneficial for him given his history of diabetes, requiring insulin. He does understand that he will be continued on steroids until the results come back, at which time he will follow the recommendations of his primary care provider. Risks and benefits of the procedure were discussed at length the patient. Risks included, but were not limited to: Bleeding, infection, risk of damage to surrounding structures and possible need for additional procedures. All questions and concerns were addressed with patient agreeing to proceed. -will take to the OR for right-sided temporal artery biopsy
[2022-08-19 11:00] VITALS: BP 158/93; PULSE 71; RESP 16; O2SAT 95
--- NOTE | 2022-08-19 11:57 | ED.NURSE ---
Pt to OR
[2022-08-19] MEDS: CLINDAMYCIN 900 MG/50 ML-D5W IVPB (12:00)
[2022-08-19] MEDS: LACTATED RINGERS 1000 ML 1,000 ML 100 ML IV (12:00)
[2022-08-19 12:02] LABS: SARS PCR* Negative SARS-CoV-2 (Negative)
[2022-08-19] MEDS: BUPIVACAINE 0.25% 30 ML INJECTION (12:15)
[2022-08-19] MEDS: LIDOCAINE 1% MDV 20 ML INJECTION (12:15)
[2022-08-19 12:46] VITALS: BP 139/81; PULSE 69; RESP 16; TEMP 36.8; O2SAT 93
--- NOTE | 2022-08-19 12:53 | P.ANES_ITS ---
Anesthesia Charges Start Date/Time Anesthesia Start Date: 08/19/22 Anesthesia Start Time: 11:57 Stop Date/Time Anesthesia Stop Date: 08/19/22 Anesthesia Stop Time: 12:48 Summary Emergency: [employer]
--- NOTE | 2022-08-19 12:57 | PM.GSPRC ---
Operative Note Date of procedure: 08/19/22 Pre-op diagnosis: Temporal arteritis Post-op diagnosis: Same Type of Procedure: Right temporal artery biopsy Indications: Patient is a 42-year-old male with clinical history and workup consistent with temporal arteritis. I was asked to perform a biopsy in order to confirm the diagnosis. Risks and benefits of operative intervention were discussed at length with the patient. Risks included but was not limited to: Bleeding, infection, risk of damage to surrounding structures, possible need for additional proceduresand postoperative complications such as pneumonia, pulmonary emboli or VT. All questions and concerns were addressed with the patient agreeing to proceed. Procedure Description: After discussing the risks and benefits of the procedure, the patient signed informed consent.? The operative site was marked and the patient was brought to the operating room and placed on the operating table in supine position.? Care was taken to pad the patient's pressure points.?? The patient was then given sedation by anesthesia.?? The operative site was then prepped and draped in the usual sterile fashion.? A time-out was then performed. ? Attention was directed to the right side. The handheld Doppler was utilized to karla out the course of the temporal artery. Local anesthetic was utilized to numb up the area. A 15 blade was used to make an approximate 5 cm incision. Cautery was then used to divide the subcutaneous tissue and assure hemostasis. The artery was visualized within the temporoparietal fascia, which was entered with sharp dissection. A proximal portion of the artery was dissected out and ligated with 3 0 Vicryl. The dissection was then carried distally for approximately 2 cm and ligated. The specimen was then carefully removed, trying to limit manipulation of the vessel itself, and passed off to the back table. Again hemostasis was assured and the incision closed with interrupted 3 0 Vicryl and running 4 Monocryl. Sterile dressings were then applied. ? The patient was then woken and transported to the recovery area in stable condition. ? The patient tolerated the procedure well. Findings: Right temporal artery biopsy Anesthesia: MAC and local Surgeon: Maye Laurent MD Estimated blood loss (mL): 3 Additional Specimen Information: Right temporal artery Condition: stable Disposition: same day
[2022-08-19 13:00] VITALS: BP 139/85; PULSE 72; RESP 16; O2SAT 94
[2022-08-19 13:15] VITALS: BP 134/87; PULSE 74; RESP 16; O2SAT 94
[2022-08-19 13:30] VITALS: BP 127/78; PULSE 70; RESP 16; O2SAT 93
--- NOTE | 2022-08-19 14:05 | PC.NURSE ---
Pt stable at d/c. denied pain/nausea and tolerated regular diet. no concern with VS. afebrile. d/c reviwed with patient and denied questions. prednisone confirmed was sent to pharmacy, pt to f/u with primary care provider next week for biopsy results. pt discharged at 1403
[2022-08-21 20:54] LABS: Albumin 3.38 g/dL (3.75-5.01); Alpha 2 Globulin 0.95 g/dL (0.48-1.05); Total Protein, Serum 6.9 g/dL (6.3-8.2)
== END 2022-08-19 14:03 | disposition home or self-care (01) ==
LOC: ED 09:03 → SS 10:58
PROVIDERS: Emergency Provider Emergency Medicine Emergency Medical Services; PCP Physician Assistant; Visit Provider Surgery
PROC: (CPT 37609; principal; 2022-08-19 11:45)
DX: M31.6 Other giant cell arteritis (principal); H53.8 Other visual disturbances; R51.9 Headache, unspecified
CPT/HCPCS: 37609; 00352; 36415; 80048; 81001; 84100; 84165; 85025; 85651; 86140; 87086; 87635; 88305; 93005; 99140; 99285; J1100; J1885; J2405; J2704; J2930; J3010; J3490; J7120; S0077

== ENCOUNTER 2022-12-30 21:46 | Emergency (ER) | payer MEDICAID, SELFPAY ==
[2022-12-30 22:33] VITALS: BP 149/84; PULSE 67; RESP 18; TEMP 36.9; O2SAT 96; BMI 35.4
--- NOTE | 2022-12-30 23:23 | ED_ITS ---
HPI - General Adult General Time Seen by Provider: 23:23 Date Seen: 12/30/22 Chief complaint: Burn/Smoke Inhalation Stated complaint: calles on back Time Seen by Provider: 12/30/22 22:42 Source: patient Mode of arrival: ambulatory Limitations: no limitations History of Present Illness HPI narrative: Patient is a 40-year-old male with no pertinent medical problems presenting to emergency department for calles to his back. States on he fell asleep on a heating pad they thought I turned off and it caused calles to his back. They been trying to treat at home with aloe vera but he states his significant other noticed blisters no ruptured open she was concerned there is infection. He states that is painful to the touch at this time. He is is up-to-date on his most recent tetanus was 6 months ago. Denies fevers, chills, chest pain, shortness of breath lightheadedness, dizziness, abdominal pain. Denies calles anywhere else other than to his midthoracic region of his back. Related Data Home Medications Medication Instructions Recorded Confirmed albuterol sulfate 90 mcg/actuation 2 inh inhalation Q4H PRN 04/15/22 08/19/22 aerosol inhaler aspirin 81 mg chewable tablet 81 mg PO DAILY 04/15/22 08/19/22 atorvastatin 80 mg tablet 40 mg PO DAILY 04/15/22 08/19/22 calcium carbonate 500 mg calcium 500 mg PO QID 04/15/22 08/19/22 (1,250 mg) chewable tablet (Calcium 500) carvedilol 25 mg tablet 25 mg PO BID 04/15/22 08/19/22 cyclobenzaprine 10 mg tablet 10 mg PO HS PRN 04/15/22 04/28/22 dapagliflozin propanediol 10 mg 10 mg PO DAILY 04/15/22 04/28/22 tablet epinephrine 0.3 mg/0.3 mL 0.3 ml IM Q5-15M PRN 04/15/22 04/28/22 injection, auto-injector eplerenone 25 mg tablet 25 mg PO DAILY 04/15/22 08/19/22 famotidine 20 mg tablet (Acid 20 mg PO BID 04/15/22 08/19/22 Controller) furosemide 20 mg tablet 20 mg PO DAILY 04/15/22 08/19/22 insulin lispro 100 unit/mL 20 unit subcut TID 04/15/22 08/19/22 subcutaneous solution (Humalog U-100 Insulin) isosorbide mononitrate 30 mg 30 mg PO DAILY 04/15/22 08/19/22 tablet,extended release 24 hr losartan 100 mg tablet (Cozaar) 100 mg PO DAILY 04/15/22 08/19/22 nitroglycerin 0.4 mg sublingual 0.8 mg sublingual Q5M 04/15/22 04/28/22 tablet ondansetron HCl 8 mg tablet 8 mg PO Q8H PRN 04/15/22 04/28/22 prasugrel 10 mg tablet (Effient) 10 mg PO DAILY 04/15/22 08/19/22 sertraline 50 mg tablet 50 mg PO DAILY 04/15/22 08/19/22 Previous Rx's Medication Instructions Recorded insulin detemir U-100 100 unit/mL 38 unit (0.38 mL) subcut BID #15 mL 04/17/22 (3 mL) subcutaneous pen (Levemir FlexTouch U-100 Insulin) oseltamivir 75 mg capsule 75 mg PO BID 3 days #6 caps 04/17/22 prednisone 20 mg tablet 20 mg PO DAILY #20 tabs 08/19/22 clindamycin HCl 300 mg capsule 300 mg PO Q8H #20 caps 10/12/22 bacitracin 500 unit/gram topical 1 applic topical TID #30 grams 12/30/22 ointment Allergies Allergy/AdvReac Type Severity Reaction Status Date / Time cephalexin [From Keflex] Allergy Verified 08/19/22 08:19 Iodinated Contrast Media Allergy Verified 08/19/22 08:19 morphine Allergy Verified 08/19/22 08:19 Penicillins Allergy Verified 08/19/22 08:19 Sulfa (Sulfonamide Allergy Verified 08/19/22 08:19 Antibiotics) Review of Systems Status of ROS: Reports: 6 or more systems reviewed and unremarkable except as noted in History and below [facility] Medical History Coronary artery disease Depression Elevated LFTs Essential hypertension Fatty liver IDDM (insulin dependent diabetes mellitus) CTARACHO (obstructive sleep apnea) Surgical History History of back surgery History of cholecystectomy S/P surgery on nasal septum Social History Smoking Status: Never smoker Do you use any of these nicotine containing products: None Second hand tobacco smoke exposure: No How often do you have a drink containing alcohol: never How often do you have six or more drinks on one occasion: Never AUDIT-C Alcohol total score: 0 Non-prescribed substance use: marijuana (any form) service: No Exam Narrative: Exam Narrative: Const: Well-nourished, Well-developed, in mild distress Eyes: PERRL, no conjunctival injection, and symmetrical lids ENMT: Atraumatic external nose and ears. Moist mucous membranes. Neck: Symmetric, trachea midline, No thyromegaly. CVS: RRR, No murmurs or gallops. Peripheral pulses 2+ and equal in all extremities RESP: Unlabored respiratory effort. Clear to auscultation bilaterally. GI: Nontender/Nondistended, No rebound or guarding. MSK:Extremities w/o deformity, Normal Active ROM Skin: Warm, Dry. Area of erythema to his midthoracic region taking up about less than 10% of his back with multiple blisters and to her 3 blisters that have opened and the do not appear infected. Neuro: Normal Muscle tone, No focal neurological deficits. Psych: Awake, Alert, & Oriented x3. Appropriate mood and affect. Const: Vital Signs, click to edit/add: Vital Signs - 24 hr 12/30/22 22:33 Temperature 98.4 F Pulse Rate [Pulse Oximeter] 67 Respiratory Rate 18 Blood Pressure [Ri ght Upper Arm] 149/84 H Pulse Oximetry 96 Oxygen Delivery Me thod Room Air Course Vital Signs Vital signs: Initial Vital Signs Temperature 98.4 F 12/30/22 22:33 Temperature Source Oral 12/30/22 22:33 Pulse Rate 67 12/30/22 22:33 Respiratory Rate 18 12/30/22 22:33 Blood Pressure 149/84 H 12/30/22 22:33 Blood Pressure Mean 105 12/30/22 22:33 Blood Pressure Position Sitting 12/30/22 22:33 Pulse Oximetry 96 12/30/22 22:33 Oxygen Delivery Method Room Air 12/30/22 22:33 Vital Signs Temperature 98.4 F 12/30/22 22:33 Pulse Rate 67 12/30/22 22:33 Respiratory Rate 18 12/30/22 22:33 Blood Pressure 149/84 H 12/30/22 22:33 Pulse Oximetry 96 12/30/22 22:33 Oxygen Delivery Method Room Air 12/30/22 22:33 Temperature 98.4 F 12/30/22 22:33 Pulse Rate 67 12/30/22 22:33 Respiratory Rate 18 12/30/22 22:33 Blood Pressure 149/84 H 12/30/22 22:33 Pulse Oximetry 96 12/30/22 22:33 Oxygen Delivery Method Room Air 12/30/22 22:33 Medical Decision Making MDM Narrative Medical decision making narrative: Patient is a 42-year-old male presenting for calles to his back. He fell asleep on a heating pad 2 days ago. They been trying to manage at home but he states is definitely was concerned there was a infection. Looking at his back there does appear to be a superficial second-degree burn with a few blisters and 2 or 3 of them that have opened up. Does not appear infected. It is painful to the touch in his pinkish color. I do not believe it is a deep partial second-degree burn is more consistent with a superficial. I will give him a bacitracin ointment to put on his back. He will get 8 pills of oxycodone for his calles. I informed in to take Tylenol or ibuprofen 1st and use the oxycodone mass. Patient be discharged home. He is agreeable to this plan. Discharge Plan Discharge Clinical Impression: Second degree burn of back Qualifiers: Encounter type: initial encounter Qualified Code(s): T21.24XA - Burn of second degree of lower back, initial encounter Patient Disposition: Home, Self-Care Condition: Stable Instructions: Second-Degree Burn (ED) Additional Instructions: Use bacitracin ointment or other topical antibiotics on your back. Take Tylenol or ibuprofen for pain and use the oxycodone if that does not help. Return for new or worsening symptoms. Please follow-up with the primary care provider as soon as you can Prescriptions: New bacitracin 500 unit/gram ointment 1 applic topical TID Qty: 30 0RF No Action carvedilol 25 mg tablet 25 mg PO BID Rx Instructions: must administer with a meal/food atorvastatin 80 mg tablet 40 mg PO DAILY cyclobenzaprine 10 mg tablet 10 mg PO HS PRN dapagliflozin propanediol 10 mg tablet 10 mg PO DAILY epinephrine 0.3 mg/0.3 mL auto-injector 0.3 ml IM Q5-15M PRN Rx Instructions: do not exceed 3 doses per episode eplerenone 25 mg tablet 25 mg PO DAILY famotidine [Acid Controller] 20 mg tablet 20 mg PO BID furosemide 20 mg tablet 20 mg PO DAILY insulin lispro [Humalog U-100 Insulin] 100 unit/mL solution 20 unit subcut TID Rx Instructions: with meal isosorbide mononitrate 30 mg tablet extended release 24 hr 30 mg PO DAILY losartan [Cozaar] 100 mg tablet 100 mg PO DAILY nitroglycerin 0.4 mg tablet, sublingual 0.8 mg sublingual Q5M Rx Instructions: do not exceed 3 doses per episode prasugrel [Effient] 10 mg tablet 10 mg PO DAILY sertraline 50 mg tablet 50 mg PO DAILY calcium carbonate [Calcium 500] 500 mg calcium (1,250 mg) tablet,chewable 500 mg PO QID ondansetron HCl 8 mg tablet 8 mg PO Q8H PRN aspirin 81 mg tablet,chewable 81 mg PO DAILY albuterol sulfate 90 mcg/actuation HFA aerosol inhaler 2 inh inhalation Q4H PRN Levemir FlexTouch U100 Insulin 100 unit/mL (3 mL) Insulin Pen 38 unit subcut BID Qty: 15 0RF oseltamivir 75 mg Capsule 75 mg PO BID 3 Days Qty: 6 0RF prednisone 20 mg tablet 20 mg PO DAILY Qty: 20 0RF Rx Instructions: Take 3 tabs daily for 3 days, then 2 tabs daily for 3 days, then 1 tab daily. clindamycin HCl 300 mg capsule 300 mg PO Q8H Qty: 20 0RF Follow Up/Referrals: Dayday Monroy PA-C [Primary Care Provider] - Stand Alone Forms: [facility] Info Instructions
[2022-12-30] MEDS: BACITRACIN OINTMENT BULK TUBE 1 APPLIC TOPICAL (23:33)
== END 2022-12-30 23:36 | disposition home or self-care (01) ==
PROVIDERS: Emergency Provider Student in an Organized Health Care Education/Training Program; PCP Physician Assistant
DX: T21.24XA Burn of second degree of lower back, initial encounter (principal); W86.1XXA Exposure to industrial wiring, appliances and electrical machinery, initial encounter
CPT/HCPCS: 99282; 99283

== ENCOUNTER 2023-03-14 08:09 | Emergency (ER) | payer SELFPAY ==
[2023-03-14 08:18] VITALS: BP 155/101; PULSE 77; RESP 16; TEMP 36.6; O2SAT 97; BMI 35.4
--- NOTE | 2023-03-14 08:34 | CRLHL7_ITS ---
For Patients: As a result of the Cures Act, medical imaging exams and procedure reports are released immediately into your electronic medical record. You may view this report before your referring provider. If you have questions, please contact your health care provider. INDICATION: Fall COMPARISON: None. TECHNIQUE: Three views right hand. FINDINGS: BONES: No fracture. Normal mineralization. No focal bone lesion. JOINT: Patient was not able to straighten the fingers. There is flexion at the proximal interphalangeal joint of the 2nd and 3rd fingers especially. Joint spaces: Normal. Soft Tissues: Atherosclerotic vascular calcifications. No foreign body. IMPRESSION: Right 2nd and 3rd finger proximal interphalangeal joint flexion deformities. No fracture seen. Dictated by Mary Grace Sheridan MD @ 03/14/2023 8:58:33 AM (Electronically Signed)
--- NOTE | 2023-03-14 08:35 | ED_ITS ---
HPI - General Adult General Chief complaint: Extremity Pain/Injury, Upper Stated complaint: injured 4 fingers Time Seen by Provider: 03/14/23 08:25 History of Present Illness HPI narrative: Patient is a 42-year-old male diabetic who is on insulin, he reports that he has got a blister on his right medial great toe, this been slightly reddened. He is concerned as he is diabetic. He also fell and injured his long and ring finger on the right hand where he has got some soft tissue swelling along the base of the fingers. He had trigger finger release in the past he basically hyperextended his fingers. He has had limited range of motion but is able to move his fingers. They are swollen at the proximal aspect of the fingers bilaterally into the MCP area. He has no open wounds of the hand. Related Data Home Medications Medication Instructions Recorded Confirmed albuterol sulfate 90 mcg/actuation 2 inh inhalation Q4H PRN 04/15/22 03/14/23 aerosol inhaler aspirin 81 mg chewable tablet 81 mg PO DAILY 04/15/22 03/14/23 atorvastatin 80 mg tablet 40 mg PO DAILY 04/15/22 03/14/23 calcium carbonate 500 mg calcium 500 mg PO QID 04/15/22 03/14/23 (1,250 mg) chewable tablet (Calcium 500) carvedilol 25 mg tablet 25 mg PO BID 04/15/22 03/14/23 dapagliflozin propanediol 10 mg 10 mg PO DAILY 04/15/22 03/14/23 tablet epinephrine 0.3 mg/0.3 mL 0.3 ml IM Q5-15M PRN 04/15/22 03/14/23 injection, auto-injector eplerenone 25 mg tablet 25 mg PO DAILY 04/15/22 08/19/22 famotidine 20 mg tablet (Acid 20 mg PO BID 04/15/22 03/14/23 Controller) furosemide 20 mg tablet 20 mg PO DAILY 04/15/22 03/14/23 insulin lispro 100 unit/mL 20 unit subcut TID 04/15/22 03/14/23 subcutaneous solution (Humalog U-100 Insulin) losartan 100 mg tablet (Cozaar) 100 mg PO DAILY 04/15/22 03/14/23 nitroglycerin 0.4 mg sublingual 0.8 mg sublingual Q5M 04/15/22 03/14/23 tablet ondansetron HCl 8 mg tablet 8 mg PO Q8H PRN 04/15/22 03/14/23 prasugrel 10 mg tablet (Effient) 10 mg PO DAILY 04/15/22 08/19/22 sertraline 50 mg tablet 50 mg PO DAILY 04/15/22 03/14/23 Previous Rx's Medication Instructions Recorded insulin detemir U-100 100 unit/mL 38 unit (0.38 mL) subcut BID #15 mL 04/17/22 (3 mL) subcutaneous pen (Levemir FlexTouch U-100 Insulin) prednisone 20 mg tablet 20 mg PO DAILY #20 tabs 08/19/22 bacitracin 500 unit/gram topical 1 applic topical TID #30 grams 12/30/22 ointment ciprofloxacin HCl 500 mg tablet 500 mg PO BID #10 tabs 03/14/23 (Cipro) Allergies Allergy/AdvReac Type Severity Reaction Status Date / Time cephalexin [From Keflex] Allergy Verified 03/14/23 08:16 Iodinated Contrast Media Allergy Verified 03/14/23 08:16 morphine Allergy Verified 03/14/23 08:16 Penicillins Allergy Verified 03/14/23 08:16 Sulfa (Sulfonamide Allergy Verified 03/14/23 08:16 Antibiotics) Review of Systems Status of ROS: Reports: 6 or more systems reviewed and unremarkable except as noted in History and below [facility] Medical History Elevated LFTs ?R79.89 - Other specified abnormal findings of blood chemistry (ICD-10) Fatty liver ?K76.0 - Fatty (change of) liver, not elsewhere classified (ICD-10) CATRACHO (obstructive sleep apnea) ?G47.33 - Obstructive sleep apnea (adult) (pediatric) (ICD-10) Depression ?F32.A - Depression, unspecified (ICD-10) Essential hypertension ?I10 - Essential (primary) hypertension (ICD-10) IDDM (insulin dependent diabetes mellitus) Coronary artery disease ?I25.10 - Atherosclerotic heart disease of [place] coronary artery without angina pectoris (ICD-10) Surgical History History of back surgery ?Z98.890 - Other specified postprocedural states (ICD-10) History of cholecystectomy ?Z90.49 - Acquired absence of other specified parts of digestive tract (ICD- 10) S/P surgery on nasal septum ?Z98.890 - Other specified postprocedural states (ICD-10) Social History Smoking Status: Never smoker Do you use any of these nicotine containing products: None Second hand tobacco smoke exposure: No How often do you have a drink containing alcohol: never How often do you have six or more drinks on one occasion: Never AUDIT-C Alcohol total score: 0 Non-prescribed substance use: marijuana (any form) service: No Exam Narrative: Exam Narrative: Objective vital signs show slightly elevated blood pressure His right hand shows some swelling of the long and ring finger at the PIP to proximal area the base of the fingers. There is no bruising or ecchymoses, he has limited range of motion specially of his long finger with limited range at the MCP joint. As mention no open wounds, good distal CMS. His right toe shows a blister that is somewhat irritated on his right medial great toe it is about the size of a quarter, and there some redness around it consistent with cellulitic change. There is no breakdown or ulceration. Const: Vital Signs, click to edit/add: Vital Signs - 24 hr 03/14/23 08:18 Temperature 97.9 F Pulse Rate [Pulse Oximeter] 77 Respiratory Rate 16 Blood Pressure [Le ft Upper Arm] 155/101 H Pulse Oximetry 97 Oxygen Delivery Me thod Room Air Course Vital Signs Vital signs: Initial Vital Signs Temperature 97.9 F 03/14/23 08:18 Temperature Source Temporal Artery Scan 03/14/23 08:18 Pulse Rate 77 03/14/23 08:18 Pulse Rhythm Regular 03/14/23 08:18 Pulse Strength 3+ Normal 03/14/23 08:18 Respiratory Rate 16 03/14/23 08:18 Blood Pressure 155/101 H 03/14/23 08:18 Blood Pressure Mean 119 H 03/14/23 08:18 Blood Pressure Position Sitting 03/14/23 08:18 Pulse Oximetry 97 03/14/23 08:18 Oxygen Delivery Method Room Air 03/14/23 08:18 Vital Signs Temperature 97.9 F 03/14/23 08:18 Pulse Rate 77 03/14/23 08:18 Respiratory Rate 16 03/14/23 08:18 Blood Pressure 155/101 H 03/14/23 08:18 Pulse Oximetry 97 03/14/23 08:18 Oxygen Delivery Method Room Air 03/14/23 08:18 Temperature 97.9 F 03/14/23 08:18 Pulse Rate 77 03/14/23 08:18 Respiratory Rate 16 03/14/23 08:18 Blood Pressure 155/101 H 03/14/23 08:18 Pulse Oximetry 97 03/14/23 08:18 Oxygen Delivery Method Room Air 03/14/23 08:18 Medical Decision Making MDM Narrative Medical decision making narrative: Patient injured his right postoperative hand where he had trigger finger release the wounds appear well-healed he had this remotely, but now has swelling of his long and ring finger. And limited range of motion. Will check an x-ray of his hand. Disposition pending findings. Will also give him antibiotics for his cellulitic change in at around the blister of his right great toe. He needs to carefully monitor his toe keep this free of pressure, would recommend soaking at 3:53 a.m. to 4 times a day in soapy water, and recommend recheck with regular doctor in 3 days or when next available. Addendum 8:52 a.m. patient's x-ray was read as unremarkable by me I do not see any fractures or dislocations. Await Radiology overreading. Patient will be engaged in icing light activity, ibuprofen for a couple of days. I would also recommend an antibiotic such as Cipro for his diabetic cellulitic change in his great toe. He needs to carefully follow this and soak it 3 to 4 times a day and then follow up with regular doctor in 3-5 days. He can review his hands situation with his regular physician as well recommend light activity for this in icing in the anti-inflammatory. If he wanted to talk to his orthopedic surgery could do that as well. Discharge Plan Discharge Clinical Impression: Diabetes, Cellulitis, Finger injury Patient Disposition: Home, Self-Care Condition: Stable Additional Instructions: Light use of the right hand, recheck with regular doctor in 3-5 days, would also recheck your diabetic cellulitic all blister on your toe. Will give the antibiotics for the interim. You can use some Tylenol or ibuprofen as needed for your hand. Recommend icing and general use. You can recheck with your orthopedic surgeon who did your trigger finger release as needed Activity Level: Light activity Discharge Diet: Regular Prescriptions: New ciprofloxacin HCl [Cipro] 500 mg tablet 500 mg PO BID Qty: 10 0RF No Action carvedilol 25 mg tablet 25 mg PO BID Rx Instructions: must administer with a meal/food atorvastatin 80 mg tablet 40 mg PO DAILY dapagliflozin propanediol 10 mg tablet 10 mg PO DAILY epinephrine 0.3 mg/0.3 mL auto-injector 0.3 ml IM Q5-15M PRN Rx Instructions: do not exceed 3 doses per episode eplerenone 25 mg tablet 25 mg PO DAILY famotidine [Acid Controller] 20 mg tablet 20 mg PO BID furosemide 20 mg tablet 20 mg PO DAILY insulin lispro [Humalog U-100 Insulin] 100 unit/mL solution 20 unit subcut TID Rx Instructions: with meal losartan [Cozaar] 100 mg tablet 100 mg PO DAILY nitroglycerin 0.4 mg tablet, sublingual 0.8 mg sublingual Q5M Rx Instructions: do not exceed 3 doses per episode prasugrel [Effient] 10 mg tablet 10 mg PO DAILY sertraline 50 mg tablet 50 mg PO DAILY calcium carbonate [Calcium 500] 500 mg calcium (1,250 mg) tablet,chewable 500 mg PO QID ondansetron HCl 8 mg tablet 8 mg PO Q8H PRN aspirin 81 mg tablet,chewable 81 mg PO DAILY albuterol sulfate 90 mcg/actuation HFA aerosol inhaler 2 inh inhalation Q4H PRN Levemir FlexTouch U100 Insulin 100 unit/mL (3 mL) Insulin Pen 38 unit subcut BID Qty: 15 0RF prednisone 20 mg tablet 20 mg PO DAILY Qty: 20 0RF Rx Instructions: Take 3 tabs daily for 3 days, then 2 tabs daily for 3 days, then 1 tab daily. bacitracin 500 unit/gram ointment 1 applic topical TID Qty: 30 0RF Follow Up/Referrals: Dayday Monroy PA-C [Primary Care Provider] - Stand Alone [facility]
== END 2023-03-14 09:06 | disposition home or self-care (01) ==
LOC: ED 09:00
PROVIDERS: Emergency Provider Family Medicine; PCP Physician Assistant
DX: S69.91XA Unspecified injury of right wrist, hand and finger(s), initial encounter (principal); L03.031 Cellulitis of right toe; E11.9 Type 2 diabetes mellitus without complications
CPT/HCPCS: 73130; 99283; 99284

== ENCOUNTER 2023-07-11 21:29 | Inpatient (IN) | payer OTHER, SELFPAY ==
[2023-07-11 21:44] VITALS: BP 178/97; PULSE 85; RESP 28; TEMP 37.7; O2SAT 92; BMI 34.4
--- NOTE | 2023-07-11 22:13 | ED.SOB ---
HPI - SOB/Dyspnea General Date Seen: 07/11/23 Chief Complaint: Shortness of Breath/Dyspnea Stated Complaint: Congenital heart failure, cannot breathe Time Seen by Provider: 07/11/23 21:33 Source: patient Mode of arrival: ambulatory Limitations: no limitations History of Present Illness HPI Narrative: Patient is a 43-year-old male with history of coronary artery disease, CHF with an EF of 30%, hypertension, diabetes presenting to the emergency department for shortness of breath. Symptoms have been going on for the past few days and seemed to be getting worse. He has been having coughing fits where he feels like he can not catch his breath. Patient denies being a smoker. States he is supposed to be on 2 L of oxygen at night but he is currently homeless and his machine broke last week so he has been unable to use it. They recently lost insurance and have not struggling to get it replaced along with replacing his CPAP machine. Patient does state he has some chest pain but this feels like his than the muscular wall and is mostly there when he coughs. Has been coughing up some phlegm. Is not aware of any sick contacts. The patient denies fevers, chills, abdominal pain, diarrhea, constipation, nausea/vomiting. States he feels sick Related Data Home Medications Medication Instructions Recorded Confirmed albuterol sulfate 90 mcg/actuation 2 inh inhalation Q4H PRN 04/15/22 03/14/23 aerosol inhaler aspirin 81 mg chewable tablet 81 mg PO DAILY 04/15/22 03/14/23 atorvastatin 80 mg tablet 40 mg PO DAILY 04/15/22 03/14/23 calcium carbonate 500 mg calcium 500 mg PO QID 04/15/22 03/14/23 (1,250 mg) chewable tablet (Calcium 500) carvedilol 25 mg tablet 25 mg PO BID 04/15/22 03/14/23 dapagliflozin propanediol 10 mg 10 mg PO DAILY 04/15/22 03/14/23 tablet epinephrine 0.3 mg/0.3 mL 0.3 ml IM Q5-15M PRN 04/15/22 03/14/23 injection, auto-injector eplerenone 25 mg tablet 25 mg PO DAILY 04/15/22 08/19/22 famotidine 20 mg tablet (Acid 20 mg PO BID 04/15/22 03/14/23 Controller) furosemide 20 mg tablet 20 mg PO DAILY 04/15/22 03/14/23 insulin lispro 100 unit/mL 20 unit subcut TID 04/15/22 03/14/23 subcutaneous solution (Humalog U-100 Insulin) losartan 100 mg tablet (Cozaar) 100 mg PO DAILY 04/15/22 03/14/23 nitroglycerin 0.4 mg sublingual 0.8 mg sublingual Q5M 04/15/22 03/14/23 tablet ondansetron HCl 8 mg tablet 8 mg PO Q8H PRN 04/15/22 03/14/23 prasugrel 10 mg tablet (Effient) 10 mg PO DAILY 04/15/22 08/19/22 sertraline 50 mg tablet 50 mg PO DAILY 04/15/22 03/14/23 Previous Rx's Medication Instructions Recorded insulin detemir U-100 100 unit/mL 38 unit (0.38 mL) subcut BID #15 mL 04/17/22 (3 mL) subcutaneous pen (Levemir FlexTouch U-100 Insulin) prednisone 20 mg tablet 20 mg PO DAILY #20 tabs 08/19/22 bacitracin 500 unit/gram topical 1 applic topical TID #30 grams 12/30/22 ointment ciprofloxacin HCl 500 mg tablet 500 mg PO BID #10 tabs 03/14/23 (Cipro) Allergies Allergy/AdvReac Type Severity Reaction Status Date / Time cephalexin [From Keflex] Allergy Verified 03/14/23 08:16 Iodinated Contrast Media Allergy Verified 03/14/23 08:16 morphine Allergy Verified 03/14/23 08:16 Penicillins Allergy Verified 03/14/23 08:16 Sulfa (Sulfonamide Allergy Verified 03/14/23 08:16 Antibiotics) Review of Systems Status of ROS: Reports: 10 or more systems reviewed and unremarkable except as noted in History and below [facility] Medical History Elevated LFTs ?R79.89 - Other specified abnormal findings of blood chemistry (ICD-10) Fatty liver ?K76.0 - Fatty (change of) liver, not elsewhere classified (ICD-10) CATRACHO (obstructive sleep apnea) ?G47.33 - Obstructive sleep apnea (adult) (pediatric) (ICD-10) Depression ?F32.A - Depression, unspecified (ICD-10) Essential hypertension ?I10 - Essential (primary) hypertension (ICD-10) IDDM (insulin dependent diabetes mellitus) Coronary artery disease ?I25.10 - Atherosclerotic heart disease of [place] coronary artery without angina pectoris (ICD-10) Surgical History History of back surgery ?Z98.890 - Other specified postprocedural states (ICD-10) History of cholecystectomy ?Z90.49 - Acquired absence of other specified parts of digestive tract (ICD-10) S/P surgery on nasal septum ?Z98.890 - Other specified postprocedural states (ICD-10) Social History Smoking Status: Never smoker Do you use any of these nicotine containing products: None Second hand tobacco smoke exposure: No How often do you have a drink containing alcohol: never How often do you have six or more drinks on one occasion: Never AUDIT-C Alcohol total score: 0 Non-prescribed substance use: marijuana (any form) service: No Exam Narrative: Exam Narrative: Const: Well-nourished, Well-developed, in mild distress Eyes: PERRL, no conjunctival injection, and symmetrical lids HENT: Atraumatic external nose and ears. Moist mucous membranes. Neck: Symmetric, trachea midline, No thyromegaly. CVS: RRR, No murmurs or gallops. Peripheral pulses 2+ and equal in all extremities RESP: Tachypneic. Clear to auscultation bilaterally. GI: Nontender/Nondistended, No rebound or guarding. MSK:Extremities w/o deformity, Normal Active ROM Skin: Warm, Dry. No rashes or lesions. Neuro: Normal Muscle tone, No focal neurological deficits. Psych: Awake, Alert, & Oriented x3. Appropriate mood and affect. Const: Vital Signs, click to edit/add: Vital Signs - 24 hr 07/11/23 21:44 07/11/23 23:12 Temperature 99.9 F H Pulse Rate [Pulse Oximeter] 85 93 Respiratory Rate 28 H 20 Blood Pressure [Ri ght Upper Arm] 178/97 H 166/90 H Pulse Oximetry 92 94 Oxygen Delivery Me thod Room Air Nasal Cannula Oxygen Flow Rate 2 Course Vital Signs Vital signs: Initial Vital Signs Respiratory Effort Normal 07/11/23 21:31 Respiratory Depth Normal 07/11/23 21:31 Respiratory Pattern Normal 07/11/23 21:31 Vital Signs Temperature 99.9 F H 07/11/23 21:44 Pulse Rate 85 07/11/23 21:44 Respiratory Rate 28 H 07/11/23 21:44 Blood Pressure 178/97 H 07/11/23 21:44 Pulse Oximetry 92 07/11/23 21:44 Oxygen Delivery Method Room Air 07/11/23 21:44 Temperature 99.9 F H 07/11/23 21:44 Pulse Rate 93 07/11/23 23:12 Respiratory Rate 20 07/11/23 23:12 Blood Pressure 166/90 H 07/11/23 23:12 Pulse Oximetry 94 07/11/23 23:12 Oxygen Delivery Method Nasal Cannula 07/11/23 23:12 Oxygen Flow Rate 2 07/11/23 23:12 MDM - SOB/Dyspnea MDM Narrative Medical decision making narrative: Patient is a 43-year-old male presenting to emergency department for shortness of breath. With his medical history is he has says of differential. Also order chest x-ray to look for pneumonia or pneumothorax. His oxygen level hangs out around at 93% so he cannot be , PERCed out. D-dimer will be ordered. EKG, be and P, CBC, CMP, COVID/flu/RSV ordered. His lungs sounded clear on exam. No lower extremity edema CHF exacerbation seems less likely at this time Patient is RSV positive. His point of care troponin came back at 0.07. This is consistent with his troponin last time he was in the emergency department. That time a 0.06. His chest pain is tender to palpation and is reproducible and seems unlikely to be cardiac in nature. He did desat down to the low 80s when he fell sleep. He is post be wearing oxygen the night. Oxygen was placed and is oxygen and his oxygen status came back up. Patient's repeat troponin came back also had 0.07. His D-dimer came back at 0.40 and a chest CTA is not necessary.. I am concerned he will not do well at home since he does not have his oxygen concentrator. With his RSV, hypoxia and overall poor health patient will be admitted to the hospitalist service Lab Data Labs: Lab Results 07/11/23 07/11/23 07/11/23 Range/Units 21:54 22:03 22:15 WBC 5.94 (4.50-11.00) K/uL RBC 4.37 (4.30-5.90) m/uL Hgb 12.9 L (13.5-17.5) gm/dL Hct 40.3 (37.0-53.0) % MCV 92 (80-100) fL MCH 30 (26-34) pg MCHC 32 (32-36) gm/dL RDW Coeff of [place] 13.0 (11.5-15.5) % Plt Count 174 (140-440) K/uL Neut % (Auto) 52.9 (42.0-72.0) % Lymph % (Auto) 18.5 L (20-44) % [place] % (Auto) 20.0 H (0.0-11.0) % Eos % (Auto) 7.4 H (0.0-7.0) % Baso % (Auto) 0.7 (0.0-3.0) % Neut # (Auto) 3.14 (1.7-7.0) K/uL Lymph # (Auto) 1.10 (0.90-2.90) K/uL [place] # (Auto) 1.20 H (0.00-0.90) K/UL Eos # (Auto) 0.40 (0.00-0.50) K/uL Baso # (Auto) 0.04 (0.00-0.30) K/uL Abs Immat Gran (auto) 0.03 (0.00-0.30) K/uL Imm/Tot Granulo (auto) 0.5 % D-Dimer Quant (PE/DVT) 0.40 (0.00-0.50) ug/ml Sodium 138 (135-149) mmol/L Potassium 4.0 (3.6-5.1) mmol/L Chloride 100 (96-114) mmol/L Carbon Dioxide 31 (20-32) mmol/L Anion Gap 7 (7-15) mEq/L BUN 26 H (5-24) mg/dL Creatinine 1.0 (0.5-1.5) mg/dL Estimated Creat Clear 98.35 Estimated GFR 96 ml/min Glucose 272 H (60-115) mg/dL Calcium 9.3 (8.4-10.6) mg/dL Total Bilirubin 0.6 (0.1-1.5) mg/dL AST 25 (12-35) U/L ALT 24 (4-50) U/L Alkaline Phosphatase 150 (40-150) U/L NT-Pro-B Natriuret Pep 419 pg/mL Total Protein 7.4 (6.0-8.3) g/dL Albumin 3.8 (3.3-5.0) g/dL SARS-CoV-2 (PCR) Negative SARS-CoV-2 (Negative) Influenza Type A (PCR) Negative PCR FLU A (Negative) Influenza Type B (PCR) Negative PCR FLU B (Negative) RSV (PCR) POSITIVE PCR RSV A (Negative) POC Troponin I 0.07 H (0.01-0.04) ng/ml 07/12/23 Range/Units 00:00 WBC (4.50-11.00) K/uL RBC (4.30-5.90) m/uL Hgb (13.5-17.5) gm/dL Hct (37.0-53.0) % MCV (80-100) fL MCH (26-34) pg MCHC (32-36) gm/dL RDW Coeff of Parker (11.5-15.5) % Plt Count (140-440) K/uL Neut % (Auto) (42.0-72.0) % Lymph % (Auto) (20-44) % [place] % (Auto) (0.0-11.0) % Eos % (Auto) (0.0-7.0) % Baso % (Auto) (0.0-3.0) % Neut # (Auto) (1.7-7.0) K/uL Lymph # (Auto) (0.90-2.90) K/uL [place] # (Auto) (0.00-0.90) K/UL Eos # (Auto) (0.00-0.50) K/uL Baso # (Auto) (0.00-0.30) K/uL Abs Immat Gran (auto) (0.00-0.30) K/uL Imm/Tot Granulo (auto) % D-Dimer Quant (PE/DVT) (0.00-0.50) ug/ml Sodium (135-149) mmol/L Potassium (3.6-5.1) mmol/L Chloride (96-114) mmol/L Carbon Dioxide (20-32) mmol/L Anion Gap (7-15) mEq/L BUN (5-24) mg/dL Creatinine (0.5-1.5) mg/dL Estimated Creat Clear Estimated GFR ml/min Glucose (60-115) mg/dL Calcium (8.4-10.6) mg/dL Total Bilirubin (0.1-1.5) mg/dL AST (12-35) U/L ALT (4-50) U/L Alkaline Phosphatase (40-150) U/L NT-Pro-B Natriuret Pep pg/mL Total Protein (6.0-8.3) g/dL Albumin (3.3-5.0) g/dL SARS-CoV-2 (PCR) (Negative) Influenza Type A (PCR) (Negative) Influenza Type B (PCR) (Negative) RSV (PCR) (Negative) POC Troponin I 0.07 H (0.01-0.04) ng/ml Imaging Data Chest x-ray: Radiologist's impression: Low lung volumes. No acute findings and no significant changes from the prior exam. Dictated by Joao Singh MD @ 07/11/2023 10:57:05 PM ECG Data Attestation: I personally reviewed and interpreted this ECG as follows: Prior ECG tracings: available for review (08/19/2022 and 04/15/2022) Interpretation: Normal sinus rhythm with left axis deviation, normal intervals, no apparent ST or T-wave abnormalities. Appears similar to previous EKGs on file Discharge Plan Discharge Clinical Impression: Respiratory syncytial virus (RSV), Hypoxia Patient Disposition: Admitted As Observation Condition: Stable
[2023-07-11 22:35] LABS: Albumin* 3.8 g/dL (3.3-5.0); Chloride* 100 mmol/L (96-114)
[2023-07-11 22:36] LABS: Sodium* 138 mmol/L (135-149)
[2023-07-11 22:36] LABS: PCR FLU A Negative PCR FLU A (Negative); PCR FLU B Negative PCR FLU B (Negative); PCR RSV POSITIVE PCR RSV (Negative); SARS PCR* Negative SARS-CoV-2 (Negative)
[2023-07-11 22:38] LABS: Basophils Absolute Auto 0.04 K/uL (0.00-0.30); Basophils Percent Auto 0.7 % (0.0-3.0); Bilirubin Total* 0.6 mg/dL (0.1-1.5); Eosinophils Percent Auto 7.4 % (0.0-7.0); Est. Creatinine Clearance* 98.35; Estimated Glomerular Filt Rate 96 ml/min; Hematocrit 40.3 % (37.0-53.0); Hemoglobin* 12.9 gm/dL (13.5-17.5); Immature Granulocytes Abs Auto 0.03 K/uL (0.00-0.30); Immature Granulocytes Pct Auto 0.5 %; Lymphocytes Percent Auto 18.5 % (20-44); Mean Corpuscular HGB Conc 32 gm/dL (32-36); Mean Corpuscular Hemoglobin 30 pg (26-34); Mean Corpuscular Volume 92 fL (80-100); Neutrophils Absolute Auto 3.14 K/uL (1.7-7.0); Neutrophils Percent Auto 52.9 % (42.0-72.0); Platelet Count* 174 K/uL (140-440); Red Blood Count 4.37 m/uL (4.30-5.90); Slide Review Reflex No; White Blood Count* 5.94 K/uL (4.50-11.00)
[2023-07-11 22:38] LABS: Troponin, Point-of-Care* 0.07 ng/ml (0.01-0.04)
[2023-07-11 22:39] LABS: Alanine Aminotransferase* 24 U/L (4-50); Alkaline Phosphatase* 150 U/L (40-150); Anion Gap 7 mEq/L (7-15); Aspartate Amino Transferase* 25 U/L (12-35); Blood Urea Nitrogen* 26 mg/dL (5-24); Calcium* 9.3 mg/dL (8.4-10.6); Carbon Dioxide* 31 mmol/L (20-32); Glucose* 272 mg/dL (60-115); Total Protein* 7.4 g/dL (6.0-8.3)
--- NOTE | 2023-07-11 22:39 | XR_ITS ---
Final Report Patient: SYLVAIN FLOREZ Facility:?[facility] Patient ID:?[id number] Site Patient ID:?[id number]. Site :?[id number] Study:?XRay Chest 1V PORTABLE-07/11/2023 10:53:23 PM Ordering Physician:MAGDA Final Report: INDICATION: Shortness of breath. TECHNIQUE: Chest 1 views. COMPARISON: None. FINDINGS: Cardiovascular and mediastinum: Stable heart size and vasculature. Lungs and pleural spaces: Low lung volumes. No sign of infiltrate or mass. No sign of pleural effusion. No pneumothorax. Bones and soft tissues: No significant findings. IMPRESSION: Low lung volumes. No acute findings and no significant changes from the prior exam. Dictated by Joao Singh MD @ 07/11/2023 10:57:05 PM (Electronic Signature)
[2023-07-11 22:48] LABS: NT Pro B Type NatriureticPept* 419 pg/mL
--- NOTE | 2023-07-11 22:53 | ED.NURSE ---
Pt desat to 77% when he was off O2 and was falling asleep. Pt normally wears 2L O2 at night but currently they are homeless and living in their car and concentrator is broken. Pt is RSV+ as well.
[2023-07-11 23:12] VITALS: BP 166/90; PULSE 93; RESP 20; O2SAT 94
[2023-07-12] VITALS (9 sets, daily range): BP systolic 128–182; BP diastolic 79–99; PULSE 76–89; RESP 18–24; TEMP 36.6–37.3; O2SAT 94–98; BMI 39.2
[2023-07-12 00:11] LABS: Troponin, Point-of-Care* 0.07 ng/ml (0.01-0.04)
--- NOTE | 2023-07-12 01:03 | W.PM.THH&P_ITS ---
Telehealth- H&P: HPI History of Present Illness Date Seen: 07/12/23 Chief complaint: Congenital heart failure, cannot breathe Narrative: Marquis Rosas is seen as an Interactive Telehealth visit. Marquis Rosas is a 43 year old male who has a past medical history notable for CAD, chronic heart failure with reduced EF, asthma, hypertension, diabetes, obesity who presented for evaluation of cough rhinorrhea, sore throat and dyspnea. He reports that about 5 days prior to admission he started to have a cough sore throat malaise which is slowly worsened to the point that he is quite short of breath. He reports having some chills, sinus congestion and headaches. He has had poor appetite. He is also been feeling somewhat dizzy. He has chest pain related to cough, denies chest pressure. Denies dysuria. No abdominal pain. He has not had lower extremity swelling. Of note he reports his oxygen is broken, he is supposed to use oxygen at night. He also has noticed his blood sugar has not been as well-controlled as usual since he has been sick with blood sugars in the 200s. In the ER he was noted to be hypoxic on room air especially when sleeping or moving with sats in the low 80s. He required 2 L/min to maintain saturations. Troponin was minimally elevated at 0.07 x 2. Chest x-ray showed no focal opacities. Review of Systems Status of ROS: Reports: 10 or more systems reviewed and unremarkable except as noted in History and below [facility] Medical History (Updated 07/12/23 @ 01:04 by Jethro Gregory MD) Elevated LFTs ?R79.89 - Other specified abnormal findings of blood chemistry (ICD-10) Fatty liver ?K76.0 - Fatty (change of) liver, not elsewhere classified (ICD-10) CATRACHO (obstructive sleep apnea) ?G47.33 - Obstructive sleep apnea (adult) (pediatric) (ICD-10) Depression ?F32.A - Depression, unspecified (ICD-10) Essential hypertension ?I10 - Essential (primary) hypertension (ICD-10) IDDM (insulin dependent diabetes mellitus) Coronary artery disease ?I25.10 - Atherosclerotic heart disease of [place] coronary artery without angina pectoris (ICD-10) Surgical History History of back surgery ?Z98.890 - Other specified postprocedural states (ICD-10) History of cholecystectomy ?Z90.49 - Acquired absence of other specified parts of digestive tract (ICD- 10) S/P surgery on nasal septum ?Z98.890 - Other specified postprocedural states (ICD-10) Social History Smoking Status: Never smoker Do you use any of these nicotine containing products: None Second hand tobacco smoke exposure: No How often do you have a drink containing alcohol: never How often do you have six or more drinks on one occasion: Never AUDIT-C Alcohol total score: 0 Non-prescribed substance use: marijuana (any form) service: No Meds Home Medications and Allergies Home Medications Medication Instructions Recorded Confirmed Type albuterol sulfate 90 mcg/actuation 2 inh inhalation Q4H PRN 04/15/22 03/14/23 History aerosol inhaler aspirin 81 mg chewable tablet 81 mg PO DAILY 04/15/22 03/14/23 History atorvastatin 80 mg tablet 40 mg PO DAILY 04/15/22 03/14/23 History calcium carbonate 500 mg calcium 500 mg PO QID 04/15/22 03/14/23 History (1,250 mg) chewable tablet (Calcium 500) carvedilol 25 mg tablet 25 mg PO BID 04/15/22 03/14/23 History dapagliflozin propanediol 10 mg 10 mg PO DAILY 04/15/22 03/14/23 History tablet epinephrine 0.3 mg/0.3 mL 0.3 ml IM Q5-15M PRN 04/15/22 03/14/23 History injection, auto-injector eplerenone 25 mg tablet 25 mg PO DAILY 04/15/22 08/19/22 History famotidine 20 mg tablet (Acid 20 mg PO BID 04/15/22 03/14/23 History Controller) furosemide 20 mg tablet 20 mg PO DAILY 04/15/22 03/14/23 History insulin lispro 100 unit/mL 20 unit subcut TID 04/15/22 03/14/23 History subcutaneous solution (Humalog U-100 Insulin) losartan 100 mg tablet (Cozaar) 100 mg PO DAILY 04/15/22 03/14/23 History nitroglycerin 0.4 mg sublingual 0.8 mg sublingual Q5M 04/15/22 03/14/23 History tablet ondansetron HCl 8 mg tablet 8 mg PO Q8H PRN 04/15/22 03/14/23 History prasugrel 10 mg tablet (Effient) 10 mg PO DAILY 04/15/22 08/19/22 History sertraline 50 mg tablet 50 mg PO DAILY 04/15/22 03/14/23 History Allergies Allergy/AdvReac Type Severity Reaction Status Date / Time cephalexin [From Keflex] Allergy Verified 03/14/23 08:16 Iodinated Contrast Media Allergy Verified 03/14/23 08:16 morphine Allergy Verified 03/14/23 08:16 Penicillins Allergy Verified 03/14/23 08:16 Sulfa (Sulfonamide Allergy Verified 03/14/23 08:16 Antibiotics) Exam Narrative Exam Narrative: Physical Exam GENERAL: ?vital signs reviewed, Appears ill but nontoxic HEENT: pupils are equal round and reactive to light, extraocular movements are grossly within normal limits and oral mucosa is moist. NECK: Supple without lymphadenopathy or thyromegaly according to nursing staff examination observation HEART: Regular rate and rhythm without any rubs, murmurs, or gallops. LUNGS: Clear to auscultation bilaterally with good air movement throughout, occasional rhonchi ABDOMEN: Observation from nurse assisted exam, abdomen appears soft, nontender, and nondistended with Positive bowel sounds noted. EXTREMITIES: Strength and sensation is observed to be grossly within normal limits in the upper and lower extremities.? No focal strength deficit is observed. SKIN:? Observed warm and dry with color normal Const Vital Signs, click to edit/add: Vital Signs - 24 hr 07/11/23 21:44 07/11/23 23:12 Temperature 99.9 F H Pulse Rate [Pulse Oximeter] 85 93 Respiratory Rate 28 H 20 Blood Pressure [Right Upper Arm] 178/97 H 166/90 H Pulse Oximetry 92 94 Oxygen Delivery Method Room Air Nasal Cannula Oxygen Flow Rate 2 Hospitalist - H&P: Result Labs Labs: Short CBC 07/11/23 Range/Units 22:15 WBC 5.94 (4.50-11.00) K/uL Hgb 12.9 L (13.5-17.5) gm/dL Hct 40.3 (37.0-53.0) % Plt Count 174 (140-440) K/uL BMP 07/11/23 22:15 Sodium 138 Potassium 4.0 Chloride 100 Carbon Dioxide 31 BUN 26 H Creatinine 1.0 Glucose 272 H Calcium 9.3 Liver Function 07/11/23 Range/Units 22:15 Total Bilirubin 0.6 (0.1-1.5) mg/dL AST 25 (12-35) U/L ALT 24 (4-50) U/L Alkaline Phosphatase 150 (40-150) U/L Albumin 3.8 (3.3-5.0) g/dL Assessment and Plan Assessment and plan (1) Respiratory syncytial virus (RSV): Status: Acute (2) Hypoxia: Status: Acute (3) CATRACHO (obstructive sleep apnea): Problem comment: - intolerant of CPAP, recommend outpatient follow-up with PCP to discuss alternatives Status: Acute (4) Essential hypertension: Problem comment: - hypotensive on admission, continued home meds with holding parameters and blood pressure at baseline upon discharge Status: Acute (5) IDDM (insulin dependent diabetes mellitus): Problem comment: - most recent outpatient A1c 6.9 - continue home insulin, diabetic diet, Accu-Cheks and sliding scale Status: Acute Plan Acute respiratory failure with hypoxia secondary to RSV infection Requiring at least 2 L/min to maintain saturations dropped to the 80s with activity and sleeping Mucinex 60 mg twice daily as a mucolytic Antitussives as needed Albuterol as needed Oxygen supplementation as needed Afrin scheduled for 3 days due to significant sinus congestion No obvious bacterial infection, antibiotics not currently indicated Coronary artery disease Continue home medications when verified Carvedilol 25 mg twice daily Continue antiplatelets, beta-lara, statin Chronic heart failure with reduced EF Continue home medications when verified including diuretics on carvedilol and losartan which will be started when reconciled CATRACHO Intolerant of CPAP On oxygen at night, concentrator is broken Type 2 diabetes on long-term insulin with coronary artery disease Levemir 30 units twice daily plus lispro 15 units 3 times daily with moderate sliding scale insulin Prior to admission on 40 units twice daily with 15 units 3 times daily and sliding scale but reports blood sugar has been elevated Hypertension Continue home medications when verified GERD Continue H2 lara Started PPI for short-term due to worsening GERD symptoms Depression Continue SSRI when verified History of temporal arteritis Full code Lovenox Telehealth: Statement Statement Telehealth Visit: Today's History and Physical is provided via interactive telehealth by Jethro Gregory MD.? Patient is located at [facility].? Provider is located at [facility].? Nursing staff assisted with the patient's exam. The visit being done today meets criteria for a telehealth visit and the patient or patient?s parent/guardian is aware the visit is a telehealth visit. Camera Start Time: 01:47 Camera End Time: 01:54
[2023-07-12] MEDS: ACETAMINOPHEN 325 MG TABLET 650 MG PO ×3 (02:24→20:39)
[2023-07-12] MEDS: CALCIUM CARBONATE 500 MG CHEW PO ×2 (02:25→23:56)
[2023-07-12] MEDS: OMEPRAZOLE 20 MG CAPSULE DR PO (06:45)
--- NOTE | 2023-07-12 08:53 | PC.NURSE ---
Patient arrived to med surg at 0120 from ED. Given PRN Tylenol for c/o headache and Tums for acid reflux. Occasional harsh cough. O2 sats 96% on 2 LPM.?
[2023-07-12] MEDS: INSULIN ASPART 100 UNIT/ML SUBCUT ×3 (09:55→17:21)
[2023-07-12] MEDS: FAMOTIDINE 20 MG TABLET PO ×2 (09:56→20:40)
[2023-07-12] MEDS: BENZONATATE 100 MG CAPSULE 200 MG PO ×3 (09:56→20:40)
[2023-07-12] MEDS: guaiFENesin 600 MG TAB.ER.12H PO ×2 (09:56→20:39)
[2023-07-12] MEDS: carvediloL 25 MG TABLET PO ×2 (09:56→20:40)
[2023-07-12] MEDS: IBUPROFEN 600 MG TABLET PO ×3 (09:57→23:56)
[2023-07-12] MEDS: SODIUM CHLORIDE 0.9 % (FLUSH) 10 ML SYRINGE 5 ML IVF ×2 (09:57→20:39)
[2023-07-12] MEDS: ALBUTEROL SULFATE 2.5 MG/3 ML VIAL.NEB NEB ×3 (09:59→16:45)
[2023-07-12] MEDS: INSULIN ASPART 100 UNIT/ML 15 UNIT SUBCUT ×3 (10:01→20:45)
--- NOTE | 2023-07-12 11:14 | PC.SOCIAL ---
Discharge planning: paste worker spoke with pt today via telephone. Pt explained that him and his are experiencing homelessness and have two dogs. They have been working with [facility] for assistance with housing. Pt stated that he didn't have any other needs at this time and will reach out if he has more questions for the social work department throughout his stay in the hospital. Social work to follow-up as needed.
--- NOTE | 2023-07-12 12:20 | PM.IMPN1 ---
Progress Note: A&P Assessment and plan (1) Acute respiratory failure with hypoxia: Problem details: -in setting of RSV. Reported desaturations into low 80s when sleeping -currently requiring 2 L per NC, continue supplementation to maintain saturations > 90%, weaning as able Status: Acute (2) Respiratory syncytial virus (RSV): Problem details: -supportive cares, Mucinex b.i.d., antitussives p.r.n., albuterol p.r.n. -for nasal congestion, afrin x3 days, ibuprofen p.r.n., saline nasal spray, humidified O2 per NC. Previous CT findings of sinusitis, h/o nasal septal repair -agree no indication of obvious bacterial infection at this time, deferring antibiotics Status: Acute (3) CATRACHO (obstructive sleep apnea): Problem details: -intolerant of CPAP, has been using O2 at night (concentrator is broken) -recommend outpatient follow-up with PCP to discuss alternatives Status: Chronic (4) Chronic systolic heart failure: Problem details: With reduced ejection fraction, AHA/ACC stage C, functional class III -TTE from March of 2022 with normal LV size with an EF of 38% and generalized hypokinesis. Normal RV size and function with no significant valvular heart disease -on admission, BNP 419, no significant pitting edema -continue home medications, furosemide, dapagliflozin, eplerenone, losartan -followed by [facility] Status: Chronic (5) Essential hypertension: Problem details: -continue home medications, monitor Status: Chronic (6) IDDM (insulin dependent diabetes mellitus): Problem details: -with neuropathy. Last A1c 9.7. -home dose Levemir 40 units twice daily, lispro 15 units t.i.d.. Will start with 30 units Levemir b.i.d., continuing aspart tid, adjusting as necessary -diabetic diet, glucose checks ACHS, ISS Status: Chronic (7) Coronary artery disease: Problem details: -LAD stent 2020 -continue aspirin, carvedilol, beta-lara, statin Status: Chronic (8) Hyperlipidemia: Problem details: -continue statin Status: Acute Plan CODE: Full VTE PPX: Enoxaparin Disposition: program services planner to assist with discharge planning. Homeless, no medical insurance, needs home O2. Time Spent With Patient Total time spent: Total time spent caring for the patient today was 60 minutes. This includes time spent for the visit reviewing the chart, time spent during the visit, time spent after the visit and documentation and planning in coordination of care. Subjective Date Seen: 07/12/23 Interval history: Patient was admitted earlier this morning by our telehealth service. Reports currently he feels no better. Continues with intermittent headache, dizziness, and malaise and body aches. Has remained afebrile. Denies chest pain. Does has some chest tightness with breathing. Still requires 2 L O2 per NC. Has intermittent waves of nausea without vomiting. Has chronic intermittent diarrhea for which he uses loperamide. Tells me other members of his family are ill with similar symptoms. Has home oxygen available which he normally uses at nighttime however it is not currently working. Has not called to have it fixed or replaced. Recently lost medical insurance. I am told by staff that he is currently living in his car but that his family does have hotel vouchers where his family currently resides. Exam Narrative: Exam Narrative: PHYSICAL EXAM General: Appears tired otherwise NAD HEENT: Normocephalic, atraumatic, sclera white, EOMI, oral mucosa dry Cardiovascular: RRR, S1S2. Trace edema Pulmonary: Diffusely diminished, no rhonchi, no expiratory wheezes. No dyspnea on 2 L NC Abdominal: Soft, obese, nondistended, NTTP Neurological: Alert, answering questions appropriately, cranial nerves intact, no focal findings Extremities: No gross joint deformity or swelling. AROMI. Neurovascularly intact Skin: Warm, dry. Const: Vital Signs, click to edit/add: Vital Signs - 24 hr 07/11/23 21:44 07/11/23 23:12 07/12/23 00:59 Temperature 99.9 F H Pulse Rate [Pulse Oximeter] 85 93 Respiratory Rate 28 H 20 Blood Pressure [Ri ght Arm] Blood Pressure [Ri ght Upper Arm] 178/97 H 166/90 H Pulse Oximetry 92 94 98 Oxygen Delivery Me thod Room Air Nasal Cannula Oxygen Flow Rate 2 07/12/23 01:41 07/12/23 01:41 07/12/23 09:42 Temperature 98.4 F Pulse Rate [Pulse Oximeter] 89 82 Respiratory Rate 18 18 Blood Pressure [Ri ght Arm] 182/97 H Blood Pressure [Ri ght Upper Arm] Pulse Oximetry 96 96 Oxygen Delivery Me thod Nasal Cannula Nasal Cannula Oxygen Flow Rate 2.5 2 07/12/23 09:42 Temperature Pulse Rate [Pulse Oximeter] Respiratory Rate 20 Blood Pressure [Ri ght Arm] Blood [facility]] Pulse Oximetry 94 Oxygen Delivery Me thod Nasal Cannula Oxygen Flow Rate 2 Labs Labs: Laboratory Results - last 24 hr 07/11/23 07/11/23 07/11/23 21:54 22:03 22:15 WBC 5.94 RBC 4.37 Hgb 12.9 L Hct 40.3 MCV 92 MCH 30 MCHC 32 RDW Coeff of Parker 13.0 Plt Count 174 Neut % (Auto) 52.9 Lymph % (Auto) 18.5 L Phillips % (Auto) 20.0 H Eos % (Auto) 7.4 H Baso % (Auto) 0.7 Neut # (Auto) 3.14 Lymph # (Auto) 1.10 Phillips # (Auto) 1.20 H Eos # (Auto) 0.40 Baso # (Auto) 0.04 Abs Immat Gran (auto) 0.03 Imm/Tot Granulo (auto) 0.5 D-Dimer Quant (PE/DVT) 0.40 Sodium 138 Potassium 4.0 Chloride 100 Carbon Dioxide 31 Anion Gap 7 BUN 26 H Creatinine 1.0 Estimated Creat Clear 98.35 Estimated GFR 96 Glucose 272 H Calcium 9.3 Total Bilirubin 0.6 AST 25 ALT 24 Alkaline Phosphatase 150 NT-Pro-B Natriuret Pep 419 Total Protein 7.4 Albumin 3.8 SARS-CoV-2 (PCR) Negative SARS-CoV-2 Influenza Type A (PCR) Negative PCR FLU A Influenza Type B (PCR) Negative PCR FLU B RSV (PCR) POSITIVE PCR RSV A POC Troponin I 0.07 H 07/12/23 00:00 WBC RBC Hgb Hct MCV MCH MCHC RDW Coeff of Parker Plt Count Neut % (Auto) Lymph % (Auto) Phillips % (Auto) Eos % (Auto) Baso % (Auto) Neut # (Auto) Lymph # (Auto) Phillips # (Auto) Eos # (Auto) Baso # (Auto) Abs Immat Gran (auto) Imm/Tot Granulo (auto) D-Dimer Quant (PE/DVT) Sodium Potassium Chloride Carbon Dioxide Anion Gap BUN Creatinine Estimated Creat Clear Estimated GFR Glucose Calcium Total Bilirubin AST ALT Alkaline Phosphatase NT-Pro-B Natriuret Pep Total Protein Albumin SARS-CoV-2 (PCR) Influenza Type A (PCR) Influenza Type B (PCR) RSV (PCR) POC Troponin I 0.07 H
[2023-07-12] MEDS: LOPERAMIDE HCL 2 MG CAPSULE PO (12:44)
[2023-07-12] MEDS: OXYMETAZOLINE 0.05% NASAL SPRAY 1 SPRAY NOSTRIL-B ×2 (13:37→20:38)
[2023-07-12] MEDS: LOSARTAN POTASSIUM 50 MG TABLET 150 MG PO (13:37)
[2023-07-12] MEDS: FUROSEMIDE 40 MG TABLET PO (13:37)
--- NOTE | 2023-07-12 14:54 | PC.NURSE ---
Nursing Care Hours: 3121-3127 Pt this morning states feeling like shit. C/o 10/10 pain to L frontal lobe and sinuses. No cognitive or neuro deficit noted. Mild chest pain d/t coughing. Pt SOB and breathing heavy on 2L NC, spO2 WNL. Switched to oximask when resting d/t mouth breathing and nasal congestion. Treated with PRN neb, scheduled guaianesin, and PRN ibuprofen and acetaminophen. Aerobika initiated. Treatments effective as pt breathing easier, stable on RA while awake, and pain decreasing. Pt independent in room. 2 loose stools this AM. Pt states he takes Imodium daily. PRN dose given x1. Pt had Ensure for breakfast and ordered a tray for lunch. Insulin given per schedule and sliding scale. Pt requesting consult with [employer] d/t lack of insurance and finances. Request order is active.
[2023-07-12] MEDS: BACITRACIN 0.9 GM PACKET 1 EACH TOPICAL (16:45)
[2023-07-12] MEDS: GUAIF/DM 200-20 MG/20 ML 118 ML LIQUID PO (16:45)
--- NOTE | 2023-07-12 18:38 | PC.NURSE ---
End of shift [id number]: Pt A&O, afebrile and VSS. He is independent in his room. Reports having x1 loose BM today in which he received PRN imodium for. Pt denies having any nausea. Appetite has improved and he's tolerating increased PO intake. C/o chest/ribcage pain with coughing as well as a headache. Pain regimen of alternating PRN Tylenol and PRN Ibuprofen has been effective per pt; last Tylenol given @ 1245 and last Ibuprofen given @1615 PRN Guaif DM and PRN nebulizer given @ 1645. Pt has maintained O2 > 90% on RA this afternoon. PIV in right AC is SL and C/D/I. Provided bacitracin ointment for pt for a healing/reddened scab on his right inner wrist d/t welding burn. 1700 blood sugar: 202- gave 4 units Novolog with evening meal.
[2023-07-12] MEDS: ENOXAPARIN 40 MG/0.4 ML INJ SUBCUT (20:40)
[2023-07-13 00:44] VITALS: RESP 20; O2SAT 95
[2023-07-13 00:59] VITALS: O2SAT 94
[2023-07-13 02:42] VITALS: BP 136/89; PULSE 74; RESP 18; TEMP 36.8; O2SAT 91
[2023-07-13] MEDS: OMEPRAZOLE 20 MG CAPSULE DR PO (06:17)
--- NOTE | 2023-07-13 06:49 | PC.NURSE ---
End of shift [id number]: A&O pleasant and cooperative. Placed on 2L oxymask while sleeping. Reports 8/10 rib pain. See eMAR for intervention. Pt appeared to rest comfortably throughout shift. Up at crist[place]. Uses call light appropriately
[2023-07-13 07:00] VITALS: BP 133/85; PULSE 76; RESP 18; TEMP 36.5; O2SAT 90
[2023-07-13 07:01] LABS: Hematocrit 43.2 % (37.0-53.0); Hemoglobin* 13.6 gm/dL (13.5-17.5); Mean Corpuscular HGB Conc 32 gm/dL (32-36); Mean Corpuscular Hemoglobin 29 pg (26-34); Mean Corpuscular Volume 94 fL (80-100); Platelet Count* 173 K/uL (140-440); Red Blood Count 4.62 m/uL (4.30-5.90); White Blood Count* 6.41 K/uL (4.50-11.00)
[2023-07-13 07:07] LABS: Chloride* 104 mmol/L (96-114); Potassium* 3.9 mmol/L (3.6-5.1); Sodium* 143 mmol/L (135-149)
[2023-07-13 07:08] LABS: Slide Review Reflex No
[2023-07-13 07:09] LABS: Creatinine* 1.2 mg/dL (0.5-1.5); Est. Creatinine Clearance* 76.79; Estimated Glomerular Filt Rate 77 ml/min
[2023-07-13 07:10] LABS: Anion Gap 7 mEq/L (7-15); Blood Urea Nitrogen* 32 mg/dL (5-24); Carbon Dioxide* 32 mmol/L (20-32); Glucose* 128 mg/dL (60-115)
[2023-07-13 07:11] LABS: Calcium* 9.5 mg/dL (8.4-10.6)
[2023-07-13 07:20] LABS: NT Pro B Type NatriureticPept* 258 pg/mL
[2023-07-13] MEDS: ATORVASTATIN CALCIUM 40 MG TABLET PO (09:23)
[2023-07-13] MEDS: SERTRALINE 100 MG TABLET PO (09:23)
[2023-07-13] MEDS: BENZONATATE 100 MG CAPSULE 200 MG PO (09:23)
[2023-07-13] MEDS: ASPIRIN 81 MG TAB.CHEW PO (09:23)
[2023-07-13] MEDS: carvediloL 25 MG TABLET PO (09:23)
[2023-07-13] MEDS: guaiFENesin 600 MG TAB.ER.12H PO (09:23)
[2023-07-13] MEDS: LOSARTAN POTASSIUM 50 MG TABLET 150 MG PO (09:23)
[2023-07-13] MEDS: FAMOTIDINE 20 MG TABLET PO (09:24)
[2023-07-13] MEDS: OXYMETAZOLINE 0.05% NASAL SPRAY 1 SPRAY NOSTRIL-B (09:24)
[2023-07-13] MEDS: FUROSEMIDE 40 MG TABLET PO (09:24)
[2023-07-13] MEDS: SODIUM CHLORIDE 0.9 % (FLUSH) 10 ML SYRINGE 5 ML IVF (09:33)
--- NOTE | 2023-07-13 11:05 | PC.SOCIAL ---
Discharge planning: form worker met with pt and his , Lisa, today. Pt was concerned about getting his DME for his CPAP machine earlier this morning; however, reported to this worker that the equipment just came in the mail this morning. Pt and his stated that they have reapplied for Medical Assistance through [facility] and they received a packet in the mail today stating that they needed to turn in proofs for their application. Pt and his were going to make that their priority to get that done today, as they currently don't have health insurance and the pt is running low on some of his Diabetes medication. form worker suggested the pt and his try checking in with [facility] in [place] for prescription medication assistance until their insurance is active again; however, [facility] is not open today, but will be open on Sunday. form worker gave the pt and his [facility]'s phone number and local address. form worker updated the provider on staff about all of this information. Social work to follow-up as needed.
--- NOTE | 2023-07-13 11:20 | PM.DS1 ---
DS: Providers Provider Date Seen: 07/13/23 Date of admission: 07/12/23 00:57 Primary care physician: Dayday Monroy PA-C Admitting Clinician: Bina Person MD Consults: 07/12/23 00:56 Consult to Respiratory Therapy [CONS] Routine Comment: Reason(s) for RT Consult:: Consult 07/12/23 02:12 Consult to Director Of Patient Financial Services [CONS] Routine Comment: Reason for Consult:: Social Service Consult Attending [facility] on discharge[facility]: 07/13/23 DS: Diagnosis Discharge Diagnosis (1) Acute respiratory failure with hypoxia: Status: Acute Problem details: In setting of acute RSV infection. Initial desaturations into low 80s. Weaned to room air, saturations appropriately > 90%, prior to discharge. (2) Respiratory syncytial virus (RSV): Status: Acute Problem details: Continue with supportive cares, Mucinex b.i.d., antitussives p.r.n., albuterol p.r.n.. Continue [id number] afrin x3 days, ibuprofen p.r.n., saline nasal spray as needed for acute on chronic nasal congestion. Previous CT findings of sinusitis, h/o nasal septal repair There was no indication of obvious bacterial infection therefore antibiotics were deferred. (3) CATRACHO (obstructive sleep apnea): Status: Chronic Problem details: CPAP in working order, new mask and tubing arrived yesterday. Respiratory therapy discussed importance of compliance in setting of comorbidities. (4) Chronic systolic heart failure: Status: Chronic Problem details: With reduced ejection fraction, AHA/ACC stage C, functional class III -TTE from March of 2022 with normal LV size with an EF of 38% and generalized hypokinesis. Normal RV size and function with no significant valvular heart disease -on admission, BNP 419, no significant pitting edema -continue home medications, furosemide, dapagliflozin, eplerenone, losartan -followed by [facility] (5) Essential hypertension: Status: Chronic Problem details: Continue home medications (6) IDDM (insulin dependent diabetes mellitus): Status: Chronic Problem details: with neuropathy. Last A1c 9.7. Continue Levemir 40 units twice daily, lispro 15 units t.i.d. (7) Coronary artery disease: Status: Chronic Problem details: -LAD stent 2020. Continue aspirin, carvedilol, beta-lara, statin (8) Hyperlipidemia: Status: Acute Problem details: Continue statin DS: Summary Hospital Course Hospital Course: [age] year old male past medical history significant for diabetes mellitus, chronic systolic heart failure, hyperlipidemia, CAD s/p stent, CATRACHO was admitted to the medical floor for management acute hypoxia in setting of acute RSV infection. Course of care and details as noted above. As above, patient was weaned to room air, appropriately saturating > 90%, prior to discharge. Home with supportive cares. university services program associate assisted in providing resources given current financial and medical insurance needs. Patient will follow-up at [facility] next week for ongoing medication assistance/management. While patient is currently living out of his truck with his and 2 dogs, he does have a heated, outfitted garage that he is able to utilize. His child(shelby) is staying with grandparents. Remainder of chronic medical comorbidities were monitored and managed with home medications. Status at Discharge Overall status at discharge: patient is back to baseline Time Spent with Patient Time attestation: Total time spent providing and/or coordinating discharge services: Time spent: Greater than 30 minutes Exam Narrative: Exam Narrative: PHYSICAL EXAM General: Pleasant, conversant, NAD Cardiovascular: RRR Pulmonary: No dyspnea Neurological: Alert, answering questions appropriately Skin: Warm, dry. Const: Vital Signs, click to edit/add: Vital Signs - 24 hr 07/12/23 12:43 07/12/23 15:00 07/12/23 15:00 Temperature 98.9 F Pulse Rate [Pulse Oximeter] 80 76 Respiratory Rate 24 20 20 Blood Pressure [Ri t Arm] 132/86 Pulse Oximetry 94 95 Oxygen Delivery Me thod Room Air Room Air Oxygen Flow Rate 07/12/23 15:00 07/12/23 19:50 07/12/23 20:39 Temperature 97.8 F 98.6 F 98.6 F Pulse Rate [Pulse Oximeter] 76 80 Respiratory Rate 20 18 Blood Pressure [Ri t Arm] 128/79 140/93 H Pulse Oximetry 95 94 Oxygen Delivery Me thod Room Air Room Air Oxygen Flow Rate 07/12/23 23:50 07/13/23 00:44 07/13/23 00:59 Temperature 98.5 F Pulse Rate [Pulse Oximeter] 80 Respiratory Rate 20 20 Blood Pressure [Ri t Arm] 145/83 H Pulse Oximetry 95 95 94 Oxygen Delivery Me thod Room Air Room Air Oxygen Flow Rate 07/13/23 02:42 Temperature 98.2 F Pulse Rate [Pulse Oximeter] 74 Respiratory Rate 18 Blood Pressure [[facility] Arm] 136/89 Pulse Oximetry 91 Oxygen Delivery Me thod OxyMask Oxygen Flow Rate 1.5 DS: Data Data Completed and Pending Completed studies during hospitalization: Procedures Introduction of Other Therapeutic Substance into Respiratory Tract, Via Natural or Artificial Opening (04/15/22) Labs on day of discharge: Labs from last 24 hours 07/13/23 06:18 WBC 6.41 RBC 4.62 Hgb 13.6 Hct 43.2 MCV 94 MCH 29 MCHC 32 Plt Count 173 Sodium 143 Potassium 3.9 Chloride 104 Carbon Dioxide 32 Anion Gap 7 BUN 32 H Creatinine 1.2 Estimated Creat Clear 76.79 Estimated GFR 77 Glucose 128 H Calcium 9.5 NT-Pro-B Natriuret Pep 258 Discharge Plan Discharge Disposition: Home, Self-Care Date of Admission: 07/12/23 00:57 Attending Provider on Discharge: Jaleesa Armstrong Primary Care Provider: Dayday Monroy Condition: Stable Anticipated Discharge Date/Time: 07/13/23 11:04 Discharge Medications: New insulin aspart U-100 100 unit/mL (3 mL) Insulin Pen 15 unit subcut TID Qty: 240 0RF Rx Instructions: Continue to use this as prescribed until gone,then resume home lispro. Levemir FlexPen 100 unit/mL (3 mL) Insulin Pen 30 unit subcut BID Qty: 240 0RF Rx Instructions: Continue to use this until gone, then resume home glargine Continued carvedilol 25 mg tablet 25 mg PO BID Rx Instructions: must administer with a meal/food dapagliflozin propanediol 10 mg tablet 10 mg PO DAILY eplerenone 25 mg tablet 25 mg PO DAILY losartan [Cozaar] 100 mg tablet 150 mg PO DAILY nitroglycerin 0.4 mg tablet, sublingual 0.4 mg sublingual Q5M PRN Rx Instructions: do not exceed 3 doses per episode calcium carbonate [Calcium 500] 500 mg calcium (1,250 mg) tablet,chewable 500 mg PO QID PRN aspirin 81 mg tablet,chewable 81 mg PO DAILY albuterol sulfate 90 mcg/actuation HFA aerosol inhaler 2 inh inhalation Q4H PRN atorvastatin 40 mg tablet 40 mg PO DAILY famotidine 40 mg tablet 40 mg PO DAILY insulin lispro 100 unit/mL insulin pen 10 - 12 unit subcut ACHS PRN insulin glargine [Lantus Solostar U-100 Insulin] 100 unit/mL (3 mL) insulin pen 40 unit subcut BID furosemide 40 mg tablet 40 mg PO DAILY sertraline 100 mg tablet 100 mg PO DAILY loperamide [Imodium A-D] 2 mg capsule 2 mg PO Q6H PRN Discharge Orders: Discharge Order (Routine); Ordered 07/13/23 Ordered By: Jaleesa Armstrong Patient Education: RSV (Respiratory Syncytial Virus) (GEN) Additional Instructions: Continue to use your CPAP at night. [facility] at [facility] for further medication assistance/management. Activity Level: No Restrictions Discharge Diet: Diabetic Follow Up Appointments: Dayday Monroy PA-C [Primary Care Provider] - [facility] Discharge Comments: Post hospital follow-up at [facility] next week for medication assistance/management.
--- NOTE | 2023-07-13 13:03 | PC.NURSE ---
Discharge: patient alert and oriented, 90% on RA, denies pain. VSS. Patient discharged today at 1300 accompanied by spouse. Patients discharge instructions given and signed, patient verbalized understanding of instructions. Belongings sheet signed.
== END 2023-07-13 13:00 | disposition home or self-care (01) | DRG 189 ==
LOC: ED 07-12 00:36 → MEDSURG 07-12 08:49
PROVIDERS: Physician Assistant; Admitting Provider Internal Medicine; Emergency Provider Student in an Organized Health Care Education/Training Program; PCP Physician Assistant; Visit Provider Family Medicine
DX: J96.01 Acute respiratory failure with hypoxia (principal); Z59.00 Homelessness unspecified; I50.22 Chronic systolic (congestive) heart failure; J06.9 Acute upper respiratory infection, unspecified; B97.4 Respiratory syncytial virus as the cause of diseases classified elsewhere; G47.33 Obstructive sleep apnea (adult) (pediatric); I25.10 Atherosclerotic heart disease of native coronary artery without angina pectoris; F32.A Depression, unspecified; E66.9 Obesity, unspecified; J45.909 Unspecified asthma, uncomplicated; I11.0 Hypertensive heart disease with heart failure; Z79.4 Long term (current) use of insulin; Z99.81 Dependence on supplemental oxygen; K21.9 Gastro-esophageal reflux disease without esophagitis; E11.40 Type 2 diabetes mellitus with diabetic neuropathy, unspecified; Z59.7 Insufficient social insurance and welfare support; Z91.141 Patient's other noncompliance with medication regimen due to financial hardship; Z59.5 Extreme poverty; Z59.86 Financial insecurity; Z91.190 Patient's noncompliance with other medical treatment and regimen due to financial hardship; E78.5 Hyperlipidemia, unspecified
CPT/HCPCS: 36415; 71045; 80048; 80053; 82962; 83880; 84484; 85025; 85027; 85379; 87631; 93005; 94640; 94664; 94761; 99283; 99285; G0378; A9270; J1650

== ENCOUNTER 2024-02-21 08:58 | Emergency (ER) | payer OTHER, SELFPAY ==
[2024-02-21] VITALS (25 sets, daily range): BP systolic 80–145; BP diastolic 52–104; PULSE 66–89; RESP 16–22; TEMP 36.5; O2SAT 91–99; BMI 35.4
[2024-02-21] MEDS: ASPIRIN 81 MG TAB.CHEW 324 MG PO (09:00)
[2024-02-21] MEDS: NITROGLYCERIN 0.4 MG TAB.SUBL SUBLINGUAL (09:04)
[2024-02-21 09:13] LABS: Lactate* 1.2 mmol/L (0.5-1.9)
--- NOTE | 2024-02-21 09:13 | CRLHL7_ITS ---
For Patients: As a result of the Century Cures Act, medical imaging exams and procedure reports are released immediately into your electronic medical record. You may view this report before your referring provider. If you have questions, please contact your health care provider. INDICATION: Chest pain. TECHNIQUE: Chest 1 portable view. COMPARISON: None. FINDINGS: No pneumothorax or pleural effusion. Lungs are clear. Cardiac and mediastinal contours are within normal limits. Upper abdomen and osseous structures as imaged show no acute abnormality. IMPRESSION: No evidence of acute cardiopulmonary disease. Dictated by Jung Guillen MD @ 02/21/2024 9:39:46 AM (Electronically Signed)
[2024-02-21 09:21] LABS: Troponin, Point-of-Care* 0.12 ng/ml (0.01-0.04)
[2024-02-21 09:23] LABS: Basophils Absolute Auto 0.03 K/uL (0.00-0.30); Basophils Percent Auto 0.4 % (0.0-3.0); Eosinophils Absolute Auto 0.41 K/uL (0.00-0.50); Eosinophils Percent Auto 6.1 % (0.0-7.0); Hematocrit 43.9 % (37.0-53.0); Hemoglobin* 14.5 gm/dL (13.5-17.5); Immature Granulocytes Abs Auto 0.05 K/uL (0.00-0.30); Immature Granulocytes Pct Auto 0.7 %; Lymphocytes Absolute Auto 1.98 K/uL (0.90-2.90); Lymphocytes Percent Auto 29.6 % (20-44); Mean Corpuscular HGB Conc 33 gm/dL (32-36); Mean Corpuscular Hemoglobin 29 pg (26-34); Mean Corpuscular Volume 89 fL (80-100); Monocytes Percent Auto 7.9 % (0.0-11.0); Neutrophils Absolute Auto 3.69 K/uL (1.7-7.0); Neutrophils Percent Auto 55.3 % (42.0-72.0); Platelet Count* 183 K/uL (140-440); RDW Coefficient of Variation % 13.1 % (11.5-15.5); Red Blood Count 4.94 m/uL (4.30-5.90); White Blood Count* 6.69 K/uL (4.50-11.00)
[2024-02-21 09:25] LABS: Slide Review Reflex No
[2024-02-21] MEDS: HEPARIN 5,000 UNIT/0.5 ML INJ 4000 UNIT IVP (09:34)
[2024-02-21] MEDS: HEPARIN 25,000 UNIT/500 ML BAG 20 UNIT IV (09:34)
[2024-02-21] MEDS: NITROGLYCERIN/DEXTROSE 25,000 MCG/250 ML BOTTLE 3 MCG IVPB (09:41)
[2024-02-21 09:42] LABS: Chloride* 102 mmol/L (96-114)
[2024-02-21 09:43] LABS: Potassium* 4.2 mmol/L (3.6-5.1); Prothrombin Time 11.5 Seconds; Sodium* 136 mmol/L (135-149)
[2024-02-21 09:44] LABS: Partial Thromboplastin Time* 28 Seconds (23-33)
[2024-02-21 09:45] LABS: Anion Gap 6 mEq/L (7-15); Aspartate Amino Transferase* 32 U/L (12-35); Bilirubin Direct* 0.3 mg/dL (0.0-0.5); Bilirubin Total* 0.4 mg/dL (0.1-1.5); Carbon Dioxide* 28 mmol/L (20-32); Creatinine* 1.3 mg/dL (0.5-1.5); Est. Creatinine Clearance* 73.27; Estimated Glomerular Filt Rate 70 ml/min; Total Protein* 7.3 g/dL (6.0-8.3)
[2024-02-21 09:46] LABS: Alanine Aminotransferase* 31 U/L (4-50); Alkaline Phosphatase* 161 U/L (40-150); Blood Urea Nitrogen* 36 mg/dL (5-24); Calcium* 9.4 mg/dL (8.4-10.6); Glucose* 349 mg/dL (60-115); Lipase* 168 U/L (23-300)
[2024-02-21 09:48] LABS: C Reactive Protein* 0.7 mg/dL (0.5-1.0)
--- NOTE | 2024-02-21 09:53 | ED_ITS ---
HPI - General Adult General Chief complaint: Chest Pain Stated complaint: chest pain Time Seen by Provider: 02/21/24 09:04 Source: patient Mode of arrival: ambulatory Limitations: no limitations History of Present Illness HPI narrative: 43-year-old male presenting today with chest pain that started 15 minutes prior to presentation to the emergency department. Pain is substernal radiates into his upper back and into his left arm. Patient does have a history of coronary artery disease status post ID and stenting in 2021, congestive heart failure, insulin-dependent diabetes, hyperlipidemia. Patient feels short of breath, lightheaded. He was doing some heavy lifting while he was at work when the pain started. Significant family history of coronary artery disease with a maternal grandfather dying in his 30s, multiple other members with history of MIs. Related Data Home Medications ?Medication ?Instructions ?Recorded ?Confirmed albuterol sulfate 90 mcg/actuation 2 inh inhalation Q4H PRN 04/15/22 07/12/23 aerosol inhaler aspirin 81 mg chewable tablet 81 mg PO DAILY 04/15/22 07/12/23 calcium carbonate (Calcium 500) 500 mg PO QID PRN 04/15/22 07/12/23 carvedilol 25 mg tablet 25 mg PO BID 04/15/22 07/12/23 dapagliflozin propanediol 10 mg 10 mg PO DAILY 04/15/22 07/12/23 tablet eplerenone 25 mg tablet 25 mg PO DAILY 04/15/22 07/12/23 losartan 100 mg tablet (Cozaar) 150 mg PO DAILY 04/15/22 07/12/23 nitroglycerin 0.4 mg sublingual 0.4 mg sublingual Q5M PRN 04/15/22 07/12/23 tablet atorvastatin 40 mg tablet 40 mg PO DAILY 07/12/23 07/12/23 famotidine 40 mg tablet 40 mg PO DAILY 07/12/23 07/12/23 furosemide 40 mg tablet 40 mg PO DAILY 07/12/23 07/12/23 insulin glargine 100 unit/mL (3 40 unit subcut BID 07/12/23 07/12/23 mL) subcutaneous pen (Lantus Solostar U-100 Insulin) insulin lispro 100 unit/mL 10 - 12 unit subcut ACHS PRN 07/12/23 07/12/23 subcutaneous pen loperamide 2 mg capsule (Imodium 2 mg PO Q6H PRN 07/12/23 07/12/23 A-D) sertraline 100 mg tablet 100 mg PO DAILY 07/12/23 07/12/23 Previous Rx's ?Medication ?Instructions ?Recorded insulin aspart U-100 100 unit/mL 15 unit (0.15 mL) subcut TID #240 07/13/23 (3 mL) subcutaneous pen mL insulin detemir U-100 100 unit/mL 30 unit (0.3 mL) subcut BID #240 mL 07/13/23 (3 mL) subcutaneous pen (Levemir FlexPen) Allergies Allergy/AdvReac Type Severity Reaction Status Date / Time cephalexin [From Keflex] Allergy Verified 02/21/24 09:14 Iodinated Contrast Media Allergy Verified 02/21/24 09:14 morphine Allergy Verified 02/21/24 09:14 Penicillins Allergy Verified 02/21/24 09:14 Sulfa (Sulfonamide Allergy Verified 02/21/24 09:14 Antibiotics) Review of Systems Status of ROS: Reports: 6 or more systems reviewed and unremarkable except as noted in History and below [facility] Medical History Hyperlipidemia ?E78.5 - Hyperlipidemia, unspecified (ICD-10) Chronic systolic heart failure ?I50.22 - Chronic systolic (congestive) heart failure (ICD-10) GERD (gastroesophageal reflux disease) ?K21.9 - Gastro-esophageal reflux disease without esophagitis (ICD-10) Temporal arteritis ?M31.6 - Other giant cell arteritis (ICD-10) Elevated LFTs ?R79.89 - Other specified abnormal findings of blood chemistry (ICD-10) Fatty liver ?K76.0 - Fatty (change of) liver, not elsewhere classified (ICD-10) CATRACHO (obstructive sleep apnea) ?G47.33 - Obstructive sleep apnea (adult) (pediatric) (ICD-10) Depression ?F32.A - Depression, unspecified (ICD-10) Essential hypertension ?I10 - Essential (primary) hypertension (ICD-10) IDDM (insulin dependent diabetes mellitus) Coronary artery disease ?I25.10 - Atherosclerotic heart disease of [place] coronary artery without angina pectoris (ICD-10) Surgical History History of back surgery ?Z98.890 - Other specified postprocedural states (ICD-10) History of cholecystectomy ?Z90.49 - Acquired absence of other specified parts of digestive tract (ICD- 10) S/P surgery on nasal septum ?Z98.890 - Other specified postprocedural states (ICD-10) Social History What is your current living situation?: I presently do not have a place to live Problems where you live: other Problems where you live details: in personal car In the past 12 months, utilities in danger of being shut off: yes In past 12 months, lack of transportation kept you from medical appts, meetings, work, or getting things needed for daily living: no In the past 12 mos, have been you worried that your food would run out before you had money to buy more?: sometimes true In the past 12 mos, the food you bought just didn't last and you didn't have money to buy more?: never true Smoking Status: Never smoker Do you use any of these nicotine containing products: None Second hand tobacco smoke exposure: No How often do you have a drink containing alcohol: never How often do you have six or more drinks on one occasion: Never AUDIT-C Alcohol total score: 0 Non-prescribed substance use: marijuana (any form) Caffeine: Yes (a lot of mountain dew) How often does anyone, including family, friends and others, physically hurt you : never How often does anyone, including family, friends and others, insult or talk down to you: never How often does anyone, including family, friends and others, threaten you with harm: never How often does anyone, including family, friends and others, scream or curse at you: never service: No Exam Narrative: Exam Narrative: Overweight, well-developed patient in moderate distress. Alert and oriented. Answers questions appropriately. Patient speaks in full sentences without needing to catch his breath. HEENT: Normocephalic atraumatic. Pupils are equally round reactive to light. Extraocular muscles are intact. Conjunctivae are moist without any icterus noted. Moist mucous membranes. Neck is soft. Cardiovascular: Heart is regular rate and rhythm S1 and S2 are present without any murmurs. Lungs: Clear to auscultation bilaterally no wheezes rhonchi or rales are appreciated. Pain is not reproducible with palpation. Abdomen: Soft and nontender nondistended with normal bowel sounds. Extremities: Bilateral lower extremities show trace edema. Skin: Well perfused. Const: Vital Signs, click to edit/add: Vital Signs - 24 hr 02/21/24 09:01 02/21/24 09:02 02/21/24 09:07 Temperature Pulse Rate 82 87 Pulse Rate [Pulse Oximeter] Respiratory Rate Blood Pressure 145/104 H 133/92 H Blood Pressure [Ri ght Upper Arm] Pulse Oximetry 96 93 Oxygen Delivery Me thod Oxygen Flow Rate 02/21/24 09:08 02/21/24 09:11 02/21/24 09:15 Temperature 97.7 F Pulse Rate 84 77 Pulse Rate [Pulse Oximeter] 89 Respiratory Rate 22 16 Blood Pressure 96/67 Blood Pressure [Ri ght Upper Arm] 145/104 H Pulse Oximetry 96 91 91 Oxygen Delivery Me thod Room Air Oxygen Flow Rate 02/21/24 09:17 02/21/24 09:21 02/21/24 09:23 Temperature Pulse Rate 80 74 Pulse Rate [Pulse Oximeter] Respiratory Rate Blood Pressure 80/52 L 108/72 Blood Pressure [Ri ght Upper Arm] Pulse Oximetry 91 92 96 Oxygen Delivery Me thod Oxygen Flow Rate 02/21/24 09:30 02/21/24 09:35 02/21/24 09:36 Temperature Pulse Rate 81 74 72 Pulse Rate [Pulse Oximeter] Respiratory Rate Blood Pressure 123/80 122/80 Blood Pressure [Ri ght Upper Arm] Pulse Oximetry 94 94 96 Oxygen Delivery Me thod Oxygen Flow Rate 02/21/24 09:41 02/21/24 09:45 02/21/24 09:46 Temperature Pulse Rate 71 68 70 Pulse Rate [Pulse Oximeter] Respiratory Rate Blood Pressure 123/84 133/86 Blood Pressure [Ri ght Upper Arm] Pulse Oximetry 97 98 98 Oxygen Delivery Me thod Nasal Cannula Oxygen Flow Rate 2 02/21/24 09:48 02/21/24 09:50 02/21/24 09:51 Temperature Pulse Rate 69 68 Pulse Rate [Pulse Oximeter] Respiratory Rate 16 Blood Pressure 134/78 Blood Pressure [Ri ght Upper Arm] Pulse Oximetry 98 99 98 Oxygen Delivery Me thod Nasal Cannula Oxygen Flow Rate 2 02/21/24 09:52 02/21/24 09:54 02/21/24 09:55 Temperature Pulse Rate 66 66 72 Pulse Rate [Pulse Oximeter] Respiratory Rate Blood Pressure 118/89 136/86 130/87 Blood Pressure [Ri ght Upper Arm] Pulse Oximetry 97 99 97 Oxygen Delivery Me thod Oxygen Flow Rate 02/21/24 09:58 02/21/24 10:00 02/21/24 10:01 Temperature Pulse Rate 72 74 66 Pulse Rate [Pulse Oximeter] Respiratory Rate Blood Pressure 133/82 126/80 Blood Pressure [Ri ght Upper Arm] Pulse Oximetry 96 96 97 Oxygen Delivery Me thod Oxygen Flow Rate 02/21/24 10:02 Temperature Pulse Rate Pulse Rate [Pulse Oximeter] Respiratory Rate Blood Pressure 125/91 H Blood Pressure [Ri ght Upper Arm] Pulse Oximetry Oxygen Delivery Me thod Oxygen Flow Rate Course Course ED Course: EKG, read by me, shows normal sinus rhythm with a pulse of 81. He does have left axis deviation best he a T-wave abnormalities that unchanged from previous EKG. Patient is given oral aspirin. IV is established and patient is given sublingual nitro. His blood pressure does drop into the 90s systolic. A 2nd IV is established and patient receives 250 mL normal saline bolus. While the sublingual nitro does help his symptoms he does still feel some substernal chest pain. Point of care troponin elevated at 0.12. Cardiology team was called at [facility]. I spoke to Dr. Martinez (cardiology) and Dr. Quiroga (ER) and transfer is initiated to their ER. The blood pressure does normalized to 120's systolic. Therefore, nitro drip was started as well as heparin. Vital Signs Vital signs: Initial Vital Signs Pulse Rate 82 02/21/24 09:01 Pulse Oximetry 96 02/21/24 09:01 Vital Signs Pulse Rate 82 02/21/24 09:01 Pulse Oximetry 96 02/21/24 09:01 Temperature 97.7 F 02/21/24 09:08 Pulse Rate 66 02/21/24 10:01 Respiratory Rate 16 02/21/24 09:48 Blood Pressure 125/91 H 02/21/24 10:02 Pulse Oximetry 97 02/21/24 10:01 Oxygen Delivery Method Nasal Cannula 02/21/24 09:48 Oxygen Flow Rate 2 02/21/24 09:48 Medications Administered Medications: Generic Name Dose Route Start Last Admin Trade Name Freq PRN Reason Stop Dose Admin Heparin Sodium/Dextrose 25,000 unit in 500 mls @ 0 mls/hr 02/21/24 09:30 02/21/24 09:34 Heparin IV 1,000 unit/hr .Q0M EUNICE 20 mls/hr Administration Protocol Per Protocol Nitroglycerin/Dextrose 25,000 mcg in 250 mls @ 3 mls/hr 02/21/24 09:38 02/21/24 09:49 Nitroglycerin/Dextrose IVPB 10 mcg/min .TITRATE PRN 6 mls/hr Titration Protocol 5 MCG/MIN Sodium Chloride 250 mls @ 250 mls/hr 02/21/24 09:55 02/21/24 09:56 0.9 % Sodium Chloride 250 Ml IV 02/21/24 10:54 250 mls/hr .Q1H ONE Administration Nitroglycerin 0.4 mg 02/21/24 09:04 02/21/24 09:04 Nitroglycerin 0.4 Mg Tab.Subl SUBLINGUAL 0.4 mg Q5M PRN Administration Discontinued Medications Generic Name Dose Route Start Last Admin Trade Name Freq PRN Reason Stop Dose Admin Aspirin 324 mg 02/21/24 09:16 02/21/24 09:00 Aspirin 81 Mg Tab.Chew PO 02/21/24 09:17 324 mg ONCE ONE Administration Heparin Sodium (Porcine) 4,000 unit 02/21/24 09:21 02/21/24 09:34 Heparin 5,000 Unit/0.5 Ml Inj IVP 02/21/24 09:22 4,000 unit ONCE ONE Administration Medical Decision Making [facility] Narrative Medical decision making narrative: 43-year-old male with non ST elevation ID. Transfer to [facility]. Medical Records Medical records reviewed: Yes I reviewed the patient's medical records Lab Data Lab results reviewed: Yes I reviewed the patient's lab results Labs: Lab Results 02/21/24 02/21/24 02/21/24 Range/Units 09:05 09:07 09:15 WBC 6.69 (4.50-11.00) K/uL RBC 4.94 (4.30-5.90) m/uL Hgb 14.5 (13.5-17.5) gm/dL Hct 43.9 (37.0-53.0) % MCV 89 (80-100) fL MCH 29 (26-34) pg MCHC 33 (32-36) gm/dL RDW Coeff of [place] 13.1 (11.5-15.5) % Plt Count 183 (140-440) K/uL Neut % (Auto) 55.3 (42.0-72.0) % Lymph % (Auto) 29.6 (20-44) % [place] % (Auto) 7.9 (0.0-11.0) % Eos % (Auto) 6.1 (0.0-7.0) % Baso % (Auto) 0.4 (0.0-3.0) % Neut # (Auto) 3.69 (1.7-7.0) K/uL Lymph # (Auto) 1.98 (0.90-2.90) K/uL [place] # (Auto) 0.50 (0.00-0.90) K/UL Eos # (Auto) 0.41 (0.00-0.50) K/uL Baso # (Auto) 0.03 (0.00-0.30) K/uL Abs Immat Gran (auto) 0.05 (0.00-0.30) K/uL Imm/Tot Granulo (auto) 0.7 % INR 0.80 L (0.91-1.10) APTT 28 (23-33) Seconds Sodium 136 (135-149) mmol/L Potassium 4.2 (3.6-5.1) mmol/L Chloride 102 (96-114) mmol/L Carbon Dioxide 28 (20-32) mmol/L Anion Gap 6 L (7-15) mEq/L BUN 36 H (5-24) mg/dL Creatinine 1.3 (0.5-1.5) mg/dL Estimated Creat Clear 73.27 Estimated GFR 70 ml/min Glucose 349 H (60-115) mg/dL Lactate 1.2 (0.5-1.9) mmol/L Calcium 9.4 (8.4-10.6) mg/dL Total Bilirubin 0.4 (0.1-1.5) mg/dL Direct Bilirubin 0.3 (0.0-0.5) mg/dL AST 32 (12-35) U/L ALT 31 (4-50) U/L Alkaline Phosphatase 161 H (40-150) U/L Troponin I 0.21 H* (0.01-0.04) ng/mL C-Reactive Protein 0.7 (0.5-1.0) mg/dL NT-Pro-B Natriuret Pep 100 pg/mL Total Protein 7.3 (6.0-8.3) g/dL Albumin 4.0 (3.3-5.0) g/dL Lipase 168 (23-300) U/L SARS-CoV-2 (PCR) Negative SARS-CoV-2 (Negative) Influenza Type A (PCR) Negative PCR FLU A (Negative) Influenza Type B (PCR) Negative PCR FLU B (Negative) RSV (PCR) Negative PCR RSV (Negative) POC Troponin I 0.12 H (0.01-0.04) ng/ml ECG Data Attestation: I personally reviewed and interpreted this ECG as follows: Critical Care Time Critical Care Time Total Critical Care Time in Minutes: 60 Discharge Plan Discharge Clinical Impression: Non-ST elevated myocardial infarction Patient Disposition: [facility] Condition: Guarded Prescriptions: No Action carvedilol 25 mg tablet 25 mg PO BID Rx Instructions: must administer with a meal/food dapagliflozin propanediol 10 mg tablet 10 mg PO DAILY eplerenone 25 mg tablet 25 mg PO DAILY losartan [Cozaar] 100 mg tablet 150 mg PO DAILY nitroglycerin 0.4 mg tablet, sublingual 0.4 mg sublingual Q5M PRN Rx Instructions: do not exceed 3 doses per episode calcium carbonate [Calcium 500] 500 mg calcium (1,250 mg) tablet,chewable 500 mg PO QID PRN aspirin 81 mg tablet,chewable 81 mg PO DAILY albuterol sulfate 90 mcg/actuation HFA aerosol inhaler 2 inh inhalation Q4H PRN atorvastatin 40 mg tablet 40 mg PO DAILY famotidine 40 mg tablet 40 mg PO DAILY insulin lispro 100 unit/mL insulin pen 10 - 12 unit subcut ACHS PRN insulin glargine [Lantus Solostar U-100 Insulin] 100 unit/mL (3 mL) insulin pen 40 unit subcut BID furosemide 40 mg tablet 40 mg PO DAILY sertraline 100 mg tablet 100 mg PO DAILY loperamide [Imodium A-D] 2 mg capsule 2 mg PO Q6H PRN insulin aspart U-100 100 unit/mL (3 mL) Insulin Pen 15 unit subcut TID Qty: 240 0RF Rx Instructions: Continue to use this as prescribed until gone,then resume home lispro. Levemir FlexPen 100 unit/mL (3 mL) Insulin Pen 30 unit subcut BID Qty: 240 0RF Rx Instructions: Continue to use this until gone, then resume home glargine Stand Alone Forms: [email or web address] Info Instructions
[2024-02-21] MEDS: 0.9 % SODIUM CHLORIDE 250 ml 250 ML IV (09:56)
[2024-02-21 09:58] LABS: PCR FLU A Negative PCR FLU A (Negative); PCR FLU B Negative PCR FLU B (Negative); PCR RSV Negative PCR RSV (Negative); SARS PCR* Negative SARS-CoV-2 (Negative)
[2024-02-21 10:08] LABS: NT Pro B Type NatriureticPept* 100 pg/mL; Troponin I* 0.21 ng/mL (0.01-0.04)
--- NOTE | 2024-02-21 10:11 | ED.NURSE ---
Report given to [employer]. All belongings sent with patient. Report given to EMS. Patients knows where to go and will follow rig up there.
== END 2024-02-21 10:17 | disposition short-term general hospital (02) ==
PROVIDERS: Emergency Provider Family Medicine; PCP Physician Assistant
DX: I21.4 Non-ST elevation (NSTEMI) myocardial infarction (principal)
CPT/HCPCS: 36415; 71045; 80048; 80076; 83605; 83690; 83880; 84484; 85025; 85610; 85730; 86140; 87631; 93005; 94761; 99285; 99291; A9270; J1644; J7050

== ENCOUNTER 2024-02-21 10:00 | Outpatient (CLI) | payer OTHER, SELFPAY | END 2024-02-21 10:01 | disposition home or self-care (01) | LOC: AMB 03-09 22:38 | PROVIDERS: PCP Physician Assistant; Visit Provider Family Medicine | DX: I21.4 Non-ST elevation (NSTEMI) myocardial infarction (principal) | CPT/HCPCS: A0425; A0434 ==